=== PATIENT | male | born 1960 | race Caucasian/White ===

== ENCOUNTER 2020-02-03 21:51 | Emergency (ER) | payer OTHER, SELFPAY ==
[2020-02-03 21:56] VITALS: BP 150/73; PULSE 66; RESP 18; TEMP 36.8; O2SAT 99
--- NOTE | 2020-02-03 22:15 | ED.LOWEXIN ---
HPI - Extremity Injury (Lower) General Chief Complaint: Extremity Injury, Lower Stated Complaint: nail in foot Time Seen by Provider: 02/03/20 22:14 Source: patient and post acute care nurse Mode of arrival: ambulatory Limitations: no limitations History of Present Illness HPI Narrative: This is a 60-year-old male who states that 3 hours ago he inadvertently stepped onto a nail and states that he is having some pain at the site but was able to remove it. It is been more than 10 years since his last tetanus vaccine and patient denies being diabetic. Related Data Allergies Allergy/AdvReac Type Severity Reaction Status Date / Time No Known Allergies Allergy Verified 02/03/20 21:56 Review of Systems Review of Systems: pertinent positives and negatives as stated in HPI 10 point review of systems otherwise negative. PMFSH Past Medical History Source: nursing notes reviewed Medical History Anxiety Depression High cholesterol Hypertension Social History Social History Smoking Status: Current every day smoker Use of substances other than those prescribed or required for medical reasons: Yes Substance Use Type: Marijuana Advance Directives: No Advance Directives Information Provided: No Physical Exam Vital Signs: Vital Signs: Vital Signs Temp Pulse Resp BP Pulse Ox 02/03/20 21:56 98.3 F 66 18 150/73 H 99 Body Mass Index 0.3 VITAL SIGNS: Reviewed. GENERAL: Well developed, well nourished, in no acute distress. HEAD: Normocephalic/atraumatic, EYES: PERRLA, EOMI intact without pain, no nystagmus/pallor/icterus noted EARS: Ext canals without abnormality, TMs non-bulging and non-erythematous NOSE: Nares patent bilateral OROPHARYNX: no oral lesions noted, posterior pharynx clear and non-erythematous without noted tonsillar enlargement/erythema/exudates NECK: Supple, no adenopathy LUNGS: Normal breath sounds. No adventitious sounds or accessory muscle use. SpO2<99> CARDIOVASCULAR: Regular rate and rhythm without noted murmurs, no JVD or lower extremity edema. ABDOMEN: Soft, non-tender, non-distended with bowel sounds. No rigidity. No guarding. No palpable masses or hernias noted MUSCULOSKELETAL: No tenderness, deformities, or effusions noted on gross inspection. EXTREMITIES: No cyanosis, clubbing or edema; RIGHT FOOT: Small superficial puncture site noted at the right plantar MTP without obvious foreign body. SKIN: Inspection of the skin reveals no rashes, ulcerations, jaundice, pallor, or petechiae. NEUROLOGIC: Alert and oriented x 4. Strength and sensation to light touch were grossly intact x 4. Course Course Course Narrative: This is a 60-year-old male with history and clinical presentation consistent with puncture injury to the right plantar MTP and will receive tetanus vaccine After verification by x-ray that there is no residual foreign body. Review of x-ray findings is negative for evidence of any foreign body. 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 Discharge Plan Discharge Clinical Impression: Puncture wound of foot Qualifiers: Encounter type: initial encounter Laterality: right Qualified Code(s): S91.331A - Puncture wound without foreign body, right foot, initial encounter Patient Disposition: Home, Self-Care Instructions: Puncture Wound in the Foot (ED) Additional Instructions: 1. Tylenol 1000 mg, por v?a oral, cada 6 horas seg?n sea necesario para controlar el dolor. No exceda los 4000 mg en 24 horas. 2. Ibuprofeno 400 mg, por v?a oral con leche o alimentos, cada 6 horas seg?n sea necesario para controlar el dolor. 3. Puede limpiar el ?july con agua y jab?n. 4. Recibi? emerson vacuna contra el t?tanos hoy. El paciente y / o la justin reconocen que comprenden los resultados (seg?n corresponda), el diagn?stico, el plan de tratamiento, la necesidad de seguimiento y los s?ntomas que deber?an impulsar el regreso a la ivonne de emergencias. Referrals: Name,MD Virgil [Primary Care Provider] - 2 days ( re-evaluation of superficial puncture injury to the right plantar MTP.) Print Language: Slovenian
--- NOTE | 2020-02-03 22:30 | XR_ITS ---
EXAMINATION: XR FOOT, RIGHT CLINICAL INFORMATION: Question foreign body foot COMPARISON: None TECHNIQUE: AP, lateral, and oblique views of the right foot. FINDINGS: There is mild pes cavum. No fractures or dislocations are seen. No retained foreign bodies are present. No significant arthritis is seen. XR/XR foot RT min 3V IMPRESSION: No foreign body is identified
== END 2020-02-03 22:58 | disposition home or self-care (01) ==
PROVIDERS: Emergency Provider Student in an Organized Health Care Education/Training Program; PCP Internal Medicine Geriatric Medicine
DX: S91.331A Puncture wound without foreign body, right foot, initial encounter (principal); S90.414A Abrasion, right lesser toe(s), initial encounter; M79.671 Pain in right foot; W45.0XXA Nail entering through skin, initial encounter; Y93.9 Activity, unspecified; Y92.9 Unspecified place or not applicable; Y99.9 Unspecified external cause status; Z23 Encounter for immunization
CPT/HCPCS: 73630; 90471; 90715; 99284

== ENCOUNTER 2020-09-12 14:43 | Emergency (ER) | payer OTHER, SELFPAY ==
[2020-09-12 14:51] VITALS: BP 113/83; PULSE 91; RESP 18; TEMP 36.9; O2SAT 95; BMI 31.0
--- NOTE | 2020-09-12 15:47 | ECG_ITS ---
Test Reason : DETOX Blood Pressure : / mmHG Vent. Rate : 071 BPM Atrial Rate : 071 BPM P-R Int : 118 ms QRS Dur : 088 ms QT Int : 374 ms P-R-T Axes : 024 031 009 degrees QTc Int : 406 ms Sinus rhythm with frequent Premature ventricular complexes Abnormal ECG No previous ECGs available Referred By: Maria Victoria Wiley Electronically Signed By:SAVANNAH SINGLETARY
--- NOTE | 2020-09-12 15:47 | ED.MEDCLEAR ---
HPI - Medical Clearance General Chief complaint: Medical Clearance <ALFREDO Varma - Last Filed: 09/12/20 16:55> Stated complaint: detox <ALFREDO Varma - Last Filed: 09/12/20 16:55> Time Seen by Provider: 09/12/20 15:46 <ALFREDO Varma - Last Filed: 09/12/20 16:55> Source: patient <ALFREDO Varma - Last Filed: 09/12/20 16:55> Mode of arrival: ambulatory <ALFREDO Varma - Last Filed: 09/12/20 16:55> Limitations: no limitations <ALFREDO Varma - Last Filed: 09/12/20 16:55> History of Present Illness HPI Narrative: 60 y/o male with history of HTN, HLD, asthma, depression, anxiety and heroin addiction who presents to the ER for detox. He has been using intranasal heroin, about 10-15 bags per day. Last used earlier today. He has been dealing with substance abuse for 10+ years. It is causing a lot of family issues and he is at risk of losing his and children. He wants to get sober. He went to [facility] for detox today but they referred him here for medical clearance prior to starting. <ALFREDO Varma - Last Filed: 09/12/20 16:55> MD complaint: medical clearance requested <ALFREDO Varma - Last Filed: 09/12/20 16:55> Onset (ago): unknown <ALFREDO Varma - Last Filed: 09/12/20 16:55> Reason for Medical Clearance: intoxication (substance abuse) <ALFREDO Varma - Last Filed: 09/12/20 16:55> Place: home <ALFREDO Varma - Last Filed: 09/12/20 16:55> Alleged Intoxication: Yes <ALFREDO Varma - Last Filed: 09/12/20 16:55> Compliant with Home Medications: Yes <ALFREDO Varma - Last Filed: 09/12/20 16:55> Associated Symptoms: denies other symptoms <ALFREDO Varma - Last Filed: 09/12/20 16:55> Treatments Prior to Arrival: none <ALFREDO Vrama - Last Filed: 09/12/20 16:55> Related Information Allergies/Adverse reactions: Allergies Allergy/AdvReac Type Severity Reaction Status Date / Time No Known Allergies Allergy Verified 09/12/20 14:54 <ALFREDO Varma - Last Filed: 09/12/20 16:55> Review of Systems Review of Systems: Constitutional: No Fever, No Chills ENT/Mouth: No sore throat, No Rhinorrhea, No Swallowing Difficulty Cardiovascular: No Chest Pain, No SOB Respiratory: No Cough, No Sputum Gastrointestinal: No Nausea, No Vomiting, No Diarrhea, No abdominal Pain Genitourinary: No Dysuria, No Urinary Frequency, No Hematuria Musculoskeletal: No joint pain, No Myalgias Skin: No Skin Lesions, No rash Neuro: No Weakness, No Numbness, No Dizziness, No Headache Psych: + Anxiety/Panic, + Depression, No SI or HI <ALFREDO Varma Last Filed: 09/12/20 16:55> [facility] Past Medical History Attestation statement: The following information was validated with the patient. <ALFREDO Varma - Last Filed: 09/12/20 16:55> Medical History: Medical History Anxiety Asthma Depression High cholesterol HTN (hypertension) <ALFREDO Varma Last Filed: 09/12/20 16:55> Social History Social History: Social History Advance Directives: No Advance Directives Information Provided: Yes <ALFREDO Varma Last Filed: 09/12/20 16:55> Physical Exam Vital Signs: Vital Signs: Last Vital Signs Temp 98.5 F 09/12/20 17:21 Pulse 89 09/12/20 17:21 Resp 18 09/12/20 20:00 BP 118/66 09/12/20 17:21 Pulse Ox 95 09/12/20 17:21 Body Mass Index 31.0 Appearance: Alert. Oriented X3. No acute distress. Eyes: Pupils equal, round and reactive to light. ENT: Pharynx normal. Neck: Normal inspection. Neck supple. CVS: Normal heart rate and rhythm. Pulses normal. Respiratory: No respiratory distress. Breath sounds normal. Abdomen: Soft and nontender. +BS x4 Skin: Skin warm and dry. Normal skin color. Normal skin turgor. No rashes. Extremities: No lower extremity edema. Neuro: Oriented X 3. No motor deficit. No sensory deficit. Ambulates with steady gait. <ALFREDO Varma - Last Filed: 09/12/20 16:55> Vital Signs: Last Vital Signs Temp 98.5 F 09/12/20 17:21 Pulse 89 09/12/20 17:21 Resp 18 09/12/20 20:00 BP 118/66 09/12/20 17:21 Pulse Ox 95 09/12/20 17:21 Body Mass Index 31.0 <Prabha Ram NP - Last Filed: 09/13/20 01:14> Course Course Course Narrative: 60 y/o male with longstanding heroin addiction presenting for medical clearance so he can go to detox. He has been to [facility] before and wants to go back. Will get CARE Team to see him and do basic labs and EKG for medical clearance. <ALFREDO Varma - Last Filed: 09/12/20 16:55> Patient is a detox in the morning, he is unable to stay in 1 place, found wandering multiple times about the hospital. Multiple redirection attempts have failed. Due to patient's safety and privacy concerns we are discharging patient home and he will follow-up with detox in the morning. <Prabha Ram NP - Last Filed: 09/13/20 01:14> MDM - Medical Clearance Lab Data Result diagrams: : 09/12/20 16:48 09/12/20 16:48 <ALFREDO Varma - Last Filed: 09/12/20 16:55> Labs: Lab Results 09/12/20 09/12/20 09/12/20 Range/Units 16:48 16:48 16:49 WBC 9.6 (4.8-10.8) X10*3/uL RBC 4.67 (4.60-5.80) X10*6/uL Hgb 12.6 L (14.0-18.0) g/dl Hct 39.5 L (42-52) % MCV 84.6 (80-98) fL MCH 27.0 (27.0-33.0) pg MCHC 31.9 (31.0-36.0) g/dl RDW 14.2 (11.0-16.0) % Plt Count 247 (160-400) X10*3/uL MPV 9.5 (9.4-12.4) fL Immature Gran % (Auto) 0.3 (0.0-0.4) % Neut % (Auto) 61.7 (45-73) % Lymph % (Auto) 28.1 (20-40) % [place] % (Auto) 7.6 (2-11) % Eos % (Auto) 2.1 (0-4) % Baso % (Auto) 0.2 (0-2) % Lymph # (Auto) 2.7 (1.2-4.9) X10*3/uL [place] # (Auto) 0.7 (0.1-1.2) X10*3/uL Eos # (Auto) 0.2 (0.0-0.4) X10*3/uL Baso # (Auto) 0.0 (0.0-0.2) X10*3/uL Abs Immat Gran (auto) 0.03 (0.00-0.03) X10*3/uL Absolute Neuts (auto) 5.9 (2.0-8.3) X10*3/uL Absolute Nucleated RBC 0.000 (0.0-0.012) X10*3/uL Nucleated RBC % (auto) 0.0 (0.0-0.2) /100WBC Sodium 138 (135-145) mmol/L Potassium 4.9 (3.3-5.1) mmol/L Chloride 102 (96-108) mmol/L Carbon Dioxide 29 (22-29) mmol/L Anion Gap 12 (12-20) BUN 21 H (9-16) mg/dL Creatinine 0.99 (0.5-1.4) mg/dL Estim Creat Clear Calc 90.3 Estimated GFR > 60 Random Glucose 78 (60-115) mg/dL Calcium 9.4 (8.4-10.2) mg/dL Magnesium 2.0 (1.6-2.6) mg/dL Total Bilirubin 0.4 (0.0-1.0) mg/dL Direct Bilirubin 0.2 (0.0-0.5) mg/dL AST 20 (5-37) U/L ALT 17 (0-40) U/L Alkaline Phosphatase 113 (39-117) U/L Total Protein 7.0 (6.5-8.0) g/dL Albumin 4.3 (3.5-5.0) g/dL Urine Color Urine Appearance Urine pH (5.0-8.0) Ur Specific Orwell (1.005-1.025) Urine Protein (NEG-TRACE) MG/DL Urine Glucose (UA) (NEG) MG/DL Urine Ketones (NEG) MG/DL Urine Blood (NEG) Urine Nitrite (NEG) Ur Leukocyte Esterase (NEG) Urine Opiates Screen (Not Detect) Ur Barbiturates Screen (Not Detect) Ur Phencyclidine Scrn (Not Detect) Ur Amphetamines Screen (Not Detect) U Benzodiazepines Scrn (Not Detect) Urine Cocaine Screen (Not Detect) U Marijuana (THC) Screen (Not Detect) COVID-19 (MENDY) Negative (Negative) COVID-19 Clin Com See Note 09/12/20 09/12/20 Range/Units 16:51 16:51 WBC (4.8-10.8) X10*3/uL RBC (4.60-5.80) X10*6/uL Hgb (14.0-18.0) g/dl Hct (42-52) % MCV (80-98) fL MCH (27.0-33.0) pg MCHC (31.0-36.0) g/dl RDW (11.0-16.0) % Plt Count (160-400) X10*3/uL MPV (9.4-12.4) fL Immature Gran % (Auto) (0.0-0.4) % Neut % (Auto) (45-73) % Lymph % (Auto) (20-40) % [place] % (Auto) (2-11) % Eos % (Auto) (0-4) % Baso % (Auto) (0-2) % Lymph # (Auto) (1.2-4.9) X10*3/uL [place] # (Auto) (0.1-1.2) X10*3/uL Eos # (Auto) (0.0-0.4) X10*3/uL Baso # (Auto) (0.0-0.2) X10*3/uL Abs Immat Gran (auto) (0.00-0.03) X10*3/uL Absolute Neuts (auto) (2.0-8.3) X10*3/uL Absolute Nucleated RBC (0.0-0.012) X10*3/uL Nucleated RBC % (auto) (0.0-0.2) /100WBC Sodium (135-145) mmol/L Potassium (3.3-5.1) mmol/L Chloride (96-108) mmol/L Carbon Dioxide (22-29) mmol/L Anion Gap (12-20) BUN (9-16) mg/dL Creatinine (0.5-1.4) mg/dL Estim Creat Clear Calc Estimated GFR Random Glucose (60-115) mg/dL Calcium (8.4-10.2) mg/dL Magnesium (1.6-2.6) mg/dL Total Bilirubin (0.0-1.0) mg/dL Direct Bilirubin (0.0-0.5) mg/dL AST (5-37) U/L ALT (0-40) U/L Alkaline Phosphatase (39-117) U/L Total Protein (6.5-8.0) g/dL Albumin (3.5-5.0) g/dL Urine Color YELLOW Urine Appearance CLEAR Urine pH 6.0 (5.0-8.0) Ur Specific Orwell <= 1.005 (1.005-1.025) Urine Protein NEG (NEG-TRACE) MG/DL Urine Glucose (UA) NEG (NEG) MG/DL Urine Ketones NEG (NEG) MG/DL Urine Blood NEG (NEG) Urine Nitrite NEG (NEG) Ur Leukocyte Esterase NEG (NEG) Urine Opiates Screen POSITIVE H (Not Detect) Ur Barbiturates Screen Not Detected (Not Detect) Ur Phencyclidine Scrn Not Detected (Not Detect) Ur Amphetamines Screen Not Detected (Not Detect) U Benzodiazepines Scrn Not Detected (Not Detect) Urine Cocaine Screen Not Detected (Not Detect) U Marijuana (THC) Screen POSITIVE H (Not Detect) COVID-19 (MENDY) (Negative) COVID-19 Clin Com <ALFREDO Varma - Last Filed: 09/12/20 16:55> Lab Results 09/12/20 09/12/20 09/12/20 Range/Units 16:48 16:48 16:49 WBC 9.6 (4.8-10.8) X10*3/uL RBC 4.67 (4.60-5.80) X10*6/uL Hgb 12.6 L (14.0-18.0) g/dl Hct 39.5 L (42-52) % MCV 84.6 (80-98) fL MCH 27.0 (27.0-33.0) pg MCHC 31.9 (31.0-36.0) g/dl RDW 14.2 (11.0-16.0) % Plt Count 247 (160-400) X10*3/uL MPV 9.5 (9.4-12.4) fL Immature Gran % (Auto) 0.3 (0.0-0.4) % Neut % (Auto) 61.7 (45-73) % Lymph % (Auto) 28.1 (20-40) % [place] % (Auto) 7.6 (2-11) % Eos % (Auto) 2.1 (0-4) % Baso % (Auto) 0.2 (0-2) % Lymph # (Auto) 2.7 (1.2-4.9) X10*3/uL [place] # (Auto) 0.7 (0.1-1.2) X10*3/uL Eos # (Auto) 0.2 (0.0-0.4) X10*3/uL Baso # (Auto) 0.0 (0.0-0.2) X10*3/uL Abs Immat Gran (auto) 0.03 (0.00-0.03) X10*3/uL Absolute Neuts (auto) 5.9 (2.0-8.3) X10*3/uL Absolute Nucleated RBC 0.000 (0.0-0.012) X10*3/uL Nucleated RBC % (auto) 0.0 (0.0-0.2) /100WBC Sodium 138 (135-145) mmol/L Potassium 4.9 (3.3-5.1) mmol/L Chloride 102 (96-108) mmol/L Carbon Dioxide 29 (22-29) mmol/L Anion Gap 12 (12-20) BUN 21 H (9-16) mg/dL Creatinine 0.99 (0.5-1.4) mg/dL Estim Creat Clear Calc 90.3 Estimated GFR > 60 Random Glucose 78 (60-115) mg/dL Calcium 9.4 (8.4-10.2) mg/dL Magnesium 2.0 (1.6-2.6) mg/dL Total Bilirubin 0.4 (0.0-1.0) mg/dL Direct Bilirubin 0.2 (0.0-0.5) mg/dL AST 20 (5-37) U/L ALT 17 (0-40) U/L Alkaline Phosphatase 113 (39-117) U/L Total Protein 7.0 (6.5-8.0) g/dL Albumin 4.3 (3.5-5.0) g/dL Urine Color Urine Appearance Urine pH (5.0-8.0) Ur Specific Orwell (1.005-1.025) Urine Protein (NEG-TRACE) MG/DL Urine Glucose (UA) (NEG) MG/DL Urine Ketones (NEG) MG/DL Urine Blood (NEG) Urine Nitrite (NEG) Ur Leukocyte Esterase (NEG) Urine Opiates Screen (Not Detect) Ur Barbiturates Screen (Not Detect) Ur Phencyclidine Scrn (Not Detect) Ur Amphetamines Screen (Not Detect) U Benzodiazepines Scrn (Not Detect) Urine Cocaine Screen (Not Detect) U Marijuana (THC) Screen (Not Detect) COVID-19 (MENDY) Negative (Negative) COVID-19 Clin Com See Note 09/12/20 09/12/20 Range/Units 16:51 16:51 WBC (4.8-10.8) X10*3/uL RBC (4.60-5.80) X10*6/uL Hgb (14.0-18.0) g/dl Hct (42-52) % MCV (80-98) fL MCH (27.0-33.0) pg MCHC (31.0-36.0) g/dl RDW (11.0-16.0) % Plt Count (160-400) X10*3/uL MPV (9.4-12.4) fL Immature Gran % (Auto) (0.0-0.4) % Neut % (Auto) (45-73) % Lymph % (Auto) (20-40) % [place] % (Auto) (2-11) % Eos % (Auto) (0-4) % Baso % (Auto) (0-2) % Lymph # (Auto) (1.2-4.9) X10*3/uL [place] # (Auto) (0.1-1.2) X10*3/uL Eos # (Auto) (0.0-0.4) X10*3/uL Baso # (Auto) (0.0-0.2) X10*3/uL Abs Immat Gran (auto) (0.00-0.03) X10*3/uL Absolute Neuts (auto) (2.0-8.3) X10*3/uL Absolute Nucleated RBC (0.0-0.012) X10*3/uL Nucleated RBC % (auto) (0.0-0.2) /100WBC Sodium (135-145) mmol/L Potassium (3.3-5.1) mmol/L Chloride (96-108) mmol/L Carbon Dioxide (22-29) mmol/L Anion Gap (12-20) BUN (9-16) mg/dL Creatinine (0.5-1.4) mg/dL Estim Creat Clear Calc Estimated GFR Random Glucose (60-115) mg/dL Calcium (8.4-10.2) mg/dL Magnesium (1.6-2.6) mg/dL Total Bilirubin (0.0-1.0) mg/dL Direct Bilirubin (0.0-0.5) mg/dL AST (5-37) U/L ALT (0-40) U/L Alkaline Phosphatase (39-117) U/L Total Protein (6.5-8.0) g/dL Albumin (3.5-5.0) g/dL Urine Color YELLOW Urine Appearance CLEAR Urine pH 6.0 (5.0-8.0) Ur Specific Orwell <= 1.005 (1.005-1.025) Urine Protein NEG (NEG-TRACE) MG/DL Urine Glucose (UA) NEG (NEG) MG/DL Urine Ketones NEG (NEG) MG/DL Urine Blood NEG (NEG) Urine Nitrite NEG (NEG) Ur Leukocyte Esterase NEG (NEG) Urine Opiates Screen POSITIVE H (Not Detect) Ur Barbiturates Screen Not Detected (Not Detect) Ur Phencyclidine Scrn Not Detected (Not Detect) Ur Amphetamines Screen Not Detected (Not Detect) U Benzodiazepines Scrn Not Detected (Not Detect) Urine Cocaine Screen Not Detected (Not Detect) U Marijuana (THC) Screen POSITIVE H (Not Detect) COVID-19 (MENDY) (Negative) COVID-19 Clin Com <Prabha Ram NP - Last Filed: 09/13/20 01:14> ECG Data Attestation: I personally reviewed and interpreted this ECG as follows: <ALFREDO Varma - Last Filed: 09/12/20 16:55> ECG interpretation date: 09/12/20 <ALFREDO Varma - Last Filed: 09/12/20 16:55> ECG interpretation time: 16:38 <ALFREDO Varma - Last Filed: 09/12/20 16:55> Interpretation: normal sinus rhythm with frequent PVC's, HR 71 bpm, normal IN interval, normal QTc, no ST segment elevations or depressions. <ALFREDO Varma - Last Filed: 09/12/20 16:55> Discharge Plan Discharge Clinical Impression: Heroin addiction <ALFREDO Varma - Last Filed: 09/12/20 16:55> Patient Disposition: Home, Self-Care <ALFREDO Varma - Last Filed: 09/12/20 16:55> Instructions: Opioid Withdrawal (ED), Opioid Use Disorder (ED) <ALFREDO Varma - Last Filed: 09/12/20 16:55> Additional Instructions: Please follow-up detox in the morning. Thank you for choosing this emergency department for evaluation. Please follow-up with primary care physician as needed. Return to the emergency department for any new, concerning, or worsening symptoms. <ALFREDO Varma - Last Filed: 09/12/20 16:55>
[2020-09-12 16:00] VITALS: BP 118/66; PULSE 89; RESP 18; TEMP 36.9; O2SAT 95
[2020-09-12 16:54] LABS: MANUAL DIFF FLAG NO
[2020-09-12 16:56] LABS: Basophils Percent Auto 0.2 % (0-2); Eosinophils Absolute Auto 0.2 X10*3/uL (0.0-0.4); Eosinophils Percent Auto 2.1 % (0-4); Hematocrit 39.5 % (42-52); Hemoglobin 12.6 g/dl (14.0-18.0); Imm Gran Abs Auto 0.03 X10*3/uL (0.00-0.03); Imm Gran Pct Auto 0.3 % (0.0-0.4); Lymphocytes Absolute Auto 2.7 X10*3/uL (1.2-4.9); Lymphocytes Percent Auto 28.1 % (20-40); Mean Corpuscular HGB Conc 31.9 g/dl (31.0-36.0); Mean Corpuscular Volume 84.6 fL (80-98); Mean Platelet Volume 9.5 fL (9.4-12.4); Monocytes Absolute Auto 0.7 X10*3/uL (0.1-1.2); Monocytes Percent Auto 7.6 % (2-11); Neutrophils Absolute Auto 5.9 X10*3/uL (2.0-8.3); Neutrophils Percent Auto 61.7 % (45-73); Platelet Count 247 X10*3/uL (160-400); Red Blood Count 4.67 X10*6/uL (4.60-5.80); Red Cell Distribution Width 14.2 % (11.0-16.0); White Blood Count 9.6 X10*3/uL (4.8-10.8)
[2020-09-12 17:03] LABS: Glucose Urine UA NEG (NEG); Leukocyte Esterase Urine NEG (NEG); Nitrite Urine NEG (NEG); Specific Gravity - Urine <= 1.005 (1.005-1.025); Urine Blood NEG (NEG); Urine Ketones NEG (NEG); Urine Protein NEG (NEG-TRACE)
[2020-09-12 17:05] LABS: Appearance Urine CLEAR; Color Urine YELLOW
[2020-09-12 17:10] LABS: COVID-19 Test Negative (Negative)
[2020-09-12 17:21] VITALS: BP 118/66; PULSE 89; RESP 18; TEMP 36.9; O2SAT 95
[2020-09-12 17:26] LABS: Amphetamine Screen Urine Not Detected (Not Detect); Barbiturates, Urine Not Detected (Not Detect); Benzodiazepines Screen Urine Not Detected (Not Detect); Cannabinoid Screen Urine POSITIVE (Not Detect); Cocaine Screen Urine Not Detected (Not Detect); Opiate Screen Urine POSITIVE (Not Detect); Phencyclidine Screen Urine Not Detected (Not Detect)
[2020-09-12 17:27] LABS: Alanine Aminotransferase 17 U/L (0-40); Albumin Level 4.3 g/dL (3.5-5.0); Alkaline Phosphatase 113 U/L (39-117); Anion Gap 12 (12-20); Aspartate Amino Transferase 20 U/L (5-37); Bilirubin Direct 0.2 mg/dL (0.0-0.5); Bilirubin Total 0.4 mg/dL (0.0-1.0); Blood Urea Nitrogen 21 mg/dL (9-16); Calcium 9.4 mg/dL (8.4-10.2); Carbon Dioxide 29 mmol/L (22-29); Chloride 102 mmol/L (96-108); Creatinine Clr Calc Pharmacy 90.3; Estimated Glomerular Filt Rate > 60; Glucose Random 78 mg/dL (60-115); Potassium 4.9 mmol/L (3.3-5.1); Sodium 138 mmol/L (135-145)
--- NOTE | 2020-09-12 17:55 | MHC.RECOVSUP ---
Recovery Support note: Patient is a 60 year old Latvian speaking male who presented to [facility] ED seeking detox. Patient reports he presented to [facility] and was referred here. Patient is motivated to get into treatment. Reports he has been using heroin for 10 years and that his will kick him out if he does not get into treatment. Patient has been medically cleared and referred to [facility]. [facility] reports that they have a bed but they don't have intake staff until 2100. Patient information faxed to [phone]. [facility] reports that they may have a discharge tomorrow. Patient information faxed to [phone]. [facility] reports that they may have a bed available. Patient information faxed to [phone]. [facility] reports no beds at this time. [facility], message left. This manual writer introduced patient to Pbx Teacher Blake who will continue the bedsearch.
[2020-09-12 20:00] VITALS: RESP 18
--- NOTE | 2020-09-12 20:47 | MHC.RECOVSUP ---
? Reason for consult Seeking Detox o Current location: ED19 o Identified substance use concern: Heroin - Withdrawal - Seeking [facility] (detox) - Support ? Intervention: o <del>[facility]</del> <del>bed</del> <del>search</del> <del>started/completed/in</del> <del>process</del> <del>o</del> <del>MAT</del> <del>started</del> <del>or</del> <del>to</del> <del>be</del> <del>started</del> <del>o</del> <del>Community</del> <del>resources</del> <del>provided</del> <del>o</del> <del>Harm</del> <del>reduction</del> <del>discussion</del> ? Plan: <del>o</del> <del>Referral</del> <del>to</del> <del>[facility]</del> <del>o</del> <del>Bed</del> <del>search</del> <del>in</del> <del>progress</del> <del>to</del> <del>o</del> <del>Follow</del> <del>up</del> <del>tomorrow</del> <del>o</del> <del>Patient</del> <del>awaiting</del> <del>crisis</del> <del>evaluation</del> <del>o</del> <del>Patient</del> <del>to</del> <del>follow</del> <del>up</del> <del>with</del> <del>[facility]</del> <del>after</del> <del>discharge</del> ? Additional information: Patient came to the ED Seeking Help for a Detox.. Patient has a bed at [facility] and [facility] also stated that in the morning they too would have a bed.. I spoke with Nurse in charge and she stated that Patient could stay to the morning..
--- NOTE | 2020-09-13 00:15 | MHC.CARE ---
CARE/Recovery Team will support pt in being transported to the [facility] in [place] first thing in the morning for hopeful admission.
== END 2020-09-13 01:38 | disposition home or self-care (01) ==
PROVIDERS: Physician Assistant; Emergency Provider Emergency Medicine Emergency Medical Services; PCP Internal Medicine Geriatric Medicine
DX: Z02.2 Encounter for examination for admission to residential institution (principal); F19.10 Other psychoactive substance abuse, uncomplicated; I10 Essential (primary) hypertension; E78.5 Hyperlipidemia, unspecified; F41.9 Anxiety disorder, unspecified; F32.9 Major depressive disorder, single episode, unspecified; Z72.89 Other problems related to lifestyle; Z63.0 Problems in relationship with spouse or partner; Z20.822 Contact with and (suspected) exposure to COVID-19
CPT/HCPCS: 36415; 80048; 80076; 80307; 81003; 83735; 85025; 87635; 93005; 99283; 99284

== ENCOUNTER 2022-01-26 06:41 | Emergency (ER) | payer OTHER, SELFPAY ==
--- NOTE | ~2022-01-26 | XR_ITS ---
EXAMINATION: XR CHEST CLINICAL INFORMATION: Cough. COMPARISON: 04/05/2014 chest radiographs, chest CT dated 09/23/2015. TECHNIQUE: Frontal view of the chest was obtained. FINDINGS: No significant abnormality is noted involving the heart, lungs, mediastinum, bony thorax or soft tissues. XR/XR chest 1V IMPRESSION: No acute cardiopulmonary process.
[2022-01-26 06:52] VITALS: BP 135/77; PULSE 97; RESP 16; TEMP 36.9; O2SAT 92; BMI 32.5
--- NOTE | 2022-01-26 07:04 | ED.ASTHMA ---
HPI - Asthma General Chief Complaint: Asthma Stated Complaint: asthma Time Seen by Provider: 01/26/22 07:03 Source: patient Mode of arrival: ambulatory Limitations: no limitations History of Present Illness HPI Narrative: 61 yo male hx of HTN, HLD, asthma, still actively smokes here with c/o productive cough and wheezing since yesterday. He has tried two breathing treatments at home without relief. Denies fevers. States he is not sure when his asthma was this bad in the past. MD complaint: asthma attack , shortness of breath and wheezing Onset (ago): day(s) (1) Severity: moderate Context: smoke exposure Associated symptoms: productive cough Asthma History: childhood onset Treatments Prior to Arrival: inhaled bronchodilator Related Data Previous Rx's Medication Instructions Recorded azithromycin 250 mg tablet See Rx Instructions PO .COMPLEX #6 01/26/22 tabs prednisone 20 mg tablet 60 mg PO DAILY 5 days #15 tabs 01/26/22 Allergies Allergy/AdvReac Type Severity Reaction Status Date / Time No Known Allergies Allergy Verified 09/13/20 07:36 Review of Systems Review of Systems: Constitutional : No Fever, No Chills ENT/Mouth : No Hoarseness, No sore throat, No Rhinorrhea Eyes: No Redness, No Discharge, No Vision Changes Cardiovascular : No Chest Pain, positive SOB, positive Dyspnea on Exertion, No Edema Respiratory : positive Cough, pos Sputum, positive Wheezing, Gastrointestinal : No Nausea, No Vomiting, No Diarrhea, No abdominal Pain Genitourinary : No Dysuria, No Hematuria Musculoskeletal : No joint pain, No Myalgias Skin : No rash Neuro : No Weakness, No Numbness, No Headache Psych : No anxiety, depression Heme/Lymph: No Bruising, No Bleeding Endocrine : No Polyuria, No Polydipsia All other systems reviewed and are negative PMF Past Medical History Attestation statement: The following information was validated with the patient. Medical History Anxiety Asthma Depression GERD (gastroesophageal reflux disease) HLD (hyperlipidemia) HTN (hypertension) Methadone use Personal history of nicotine dependence Tubular adenoma of colon (~2010) Surgical History History of colonoscopy History of left knee surgery (~04/2013) History of left knee surgery (~09/2013) Social History Social History (Updated 01/26/22 @ 07:16 by Lis Solis DO) Patient Tobacco Use Status: Current everyday Tobacco user Substance Use Type: Marijuana Advance Directives: No Physical Exam Vital Signs: Vital Signs: Last Vital Signs Temp 98.0 F 01/26/22 07:33 Pulse 90 01/26/22 08:49 Resp 16 01/26/22 08:49 BP 122/66 01/26/22 07:33 Pulse Ox 93 01/26/22 07:33 O2 Del Method 01/26/22 07:33 BMI result Body Mass Index 32.5 Appearance: Alert. Oriented X3. No acute distress. Eyes: Pupils equal, round and reactive to light. ENT: Pharynx normal. Neck: Normal inspection. Neck supple. CVS: Normal heart rate and rhythm. Pulses normal. Respiratory: No respiratory distress. Breath sounds diffuse exp and insp wheezes Abdomen: Soft and nontender. Skin: Skin warm and dry. Normal skin color. Normal skin turgor. Extremities: trace pitting bilateral LE. No calf ttp Neuro: Oriented X 3. No motor deficit. No sensory deficit. Course Course Course Narrative: feels better repeat neb ordered no hypoxia at this time , brief episode post neb likely VQ mismatch at rest 95%, walks well no complaints feels fine wants to go home, 92% with ambulation trial asthmatic smoker - lungs are CTAB stable for DC MDM - Asthma MDM Narrative Medical decision making narrative: 61 yo male hx of HTN, HLD, asthma, still actively smokes here with productive cough, wheezing at this time CXR< COVID/FLU/RSV swab ordered, IV steroids, Duoneb ordered. Denies fevers. Dispo per results and clinical improvement. Lab Data Result diagrams: 01/26/22 07:32 01/26/22 07:32 Labs: Lab Results 01/26/22 01/26/22 01/26/22 Range/Units 07:32 07:32 07:32 WBC 8.3 (4.8-10.8) X10*3/uL RBC 4.52 L (4.60-5.80) X10*6/uL Hgb 12.3 L (14.0-18.0) g/dl Hct 38.5 L (42.0-52.0) % MCV 85.2 (80.0-98.0) fL MCH 27.2 (27.0-33.0) pg MCHC 31.9 (31.0-36.0) g/dl RDW 13.9 (11.0-16.0) % Plt Count 231 (160-400) X10*3/uL MPV 9.5 (9.4-12.4) fL Immature Gran % (Auto) 0.4 (0.0-0.4) % Neut % (Auto) 59.9 (45-73) % Lymph % (Auto) 25.9 (20-40) % [place] % (Auto) 9.3 (2-11) % Eos % (Auto) 4.1 H (0-4) % Baso % (Auto) 0.4 (0-2) % Lymph # (Auto) 2.2 (1.2-4.9) X10*3/uL [place] # (Auto) 0.8 (0.1-1.2) X10*3/uL Eos # (Auto) 0.3 (0.0-0.4) X10*3/uL Baso # (Auto) 0.0 (0.0-0.2) X10*3/uL Abs Immat Gran (auto) 0.03 (0.00-0.03) X10*3/uL Absolute Neuts (auto) 5.0 (2.0-8.3) x10*3/uL Absolute Nucleated RBC 0.000 (0.0-0.012) X10*3/uL Nucleated RBC % (auto) 0.0 (0.0-0.2) /100WBC Sodium 141 (135-145) mmol/L Potassium 4.3 (3.3-5.1) mmol/L Chloride 105 (96-108) mmol/L Carbon Dioxide 28 (22-29) mmol/L Anion Gap 12 (12-20) BUN 18 H (9-16) mg/dL Creatinine 0.83 (0.5-1.4) mg/dL Estim Creat Clear Calc 108.8 Estimated GFR > 60 Random Glucose 143 H D (60-115) mg/dL Calcium 9.0 (8.4-10.2) mg/dL B-Natriuretic Peptide < 10 (<100) pg/mL Influenza Type A (PCR) (Negative) Influenza Type B (PCR) (Negative) RSV RNA Qual (PCR) (Negative) SARS-CoV-2 RNA (RT-PCR) (Negative) 01/26/22 Range/Units 07:32 WBC (4.8-10.8) X10*3/uL RBC (4.60-5.80) X10*6/uL Hgb (14.0-18.0) g/dl Hct (42.0-52.0) % MCV (80.0-98.0) fL MCH (27.0-33.0) pg MCHC (31.0-36.0) g/dl RDW (11.0-16.0) % Plt Count (160-400) X10*3/uL MPV (9.4-12.4) fL Immature Gran % (Auto) (0.0-0.4) % Neut % (Auto) (45-73) % Lymph % (Auto) (20-40) % [place] % (Auto) (2-11) % Eos % (Auto) (0-4) % Baso % (Auto) (0-2) % Lymph # (Auto) (1.2-4.9) X10*3/uL [place] # (Auto) (0.1-1.2) X10*3/uL Eos # (Auto) (0.0-0.4) X10*3/uL Baso # (Auto) (0.0-0.2) X10*3/uL Abs Immat Gran (auto) (0.00-0.03) X10*3/uL Absolute Neuts (auto) (2.0-8.3) x10*3/uL Absolute Nucleated RBC (0.0-0.012) X10*3/uL Nucleated RBC % (auto) (0.0-0.2) /100WBC Sodium (135-145) mmol/L Potassium (3.3-5.1) mmol/L Chloride (96-108) mmol/L Carbon Dioxide (22-29) mmol/L Anion Gap (12-20) BUN (9-16) mg/dL Creatinine (0.5-1.4) mg/dL Estim Creat Clear Calc Estimated GFR Random Glucose (60-115) mg/dL Calcium (8.4-10.2) mg/dL B-Natriuretic Peptide (<100) pg/mL Influenza Type A (PCR) NEGATIVE (Negative) Influenza Type B (PCR) NEGATIVE (Negative) RSV RNA Qual (PCR) NEGATIVE (Negative) SARS-CoV-2 RNA (RT-PCR) NEGATIVE (Negative) ECG Data Attestation: I personally reviewed and interpreted this ECG as follows: ECG interpretation date: 01/26/22 ECG interpretation time: 07:18 Interpretation: Rate: 92 Rhythm: NSR Watkins: normal Normal P waves. Normal NICOLA. Normal QRS complex. ST T wave : normal no MARVA qTC: normal prior studies: no acute ischemia The study has been interpreted contemporaneously by me. . Discharge Plan Discharge Clinical Impression: Asthma with acute exacerbation Patient Disposition: Home, Self-Care Instructions: Asthma (ED) Additional Instructions: return to ED for any worsening symptoms or concerns take all your medications Prescriptions: New azithromycin 250 mg tablet See Rx Instructions .ROUTE .COMPLEX Qty: 6 0RF Rx Instructions: For 250 mg dose pack: take 500 mg today (day 1), then 250 mg for 4 days (days 2-5) prednisone 20 mg tablet 60 mg PO DAILY 5 Days Qty: 15 0RF Referrals: Name,MD Virgil [Primary Care Provider] - 2 days (if not better) Stand Alone Forms: Work/School Release
--- NOTE | 2022-01-26 07:06 | ECG_ITS ---
Test Reason : sob Blood Pressure : / mmHG Vent. Rate : 092 BPM Atrial Rate : 092 BPM P-R Int : 128 ms QRS Dur : 084 ms QT Int : 362 ms P-R-T Axes : 039 033 029 degrees QTc Int : 447 ms Normal sinus rhythm Normal ECG When compared with ECG of 12-SEP-2020 16:36, Premature ventricular complexes are no longer Present Referred By: Lis Solis Electronically Signed By:CLARK NORIEGA MD
[2022-01-26] MEDS: Albuterol Sulfate 2.5 MG, Albuterol/Iprat 2.5/0.5MG 3 ML 3 ML INHALE (07:20)
[2022-01-26 07:23] VITALS: PULSE 91; RESP 16; O2SAT 94
[2022-01-26 07:33] VITALS: BP 122/66; PULSE 95; RESP 18; TEMP 36.7; O2SAT 93
[2022-01-26 07:37] LABS: MANUAL DIFF FLAG NO
[2022-01-26] MEDS: methylPREDNISolone Sod Succ 125 MG/2 ML VIAL 60 MG IVPUSH (07:38)
[2022-01-26 07:39] LABS: Basophils Percent Auto 0.4 % (0-2); Eosinophils Absolute Auto 0.3 X10*3/uL (0.0-0.4); Eosinophils Percent Auto 4.1 % (0-4); Hematocrit 38.5 % (42.0-52.0); Hemoglobin 12.3 g/dl (14.0-18.0); Imm Gran Abs Auto 0.03 X10*3/uL (0.00-0.03); Imm Gran Pct Auto 0.4 % (0.0-0.4); Lymphocytes Absolute Auto 2.2 X10*3/uL (1.2-4.9); Lymphocytes Percent Auto 25.9 % (20-40); Mean Corpuscular HGB Conc 31.9 g/dl (31.0-36.0); Mean Corpuscular Hemoglobin 27.2 pg (27.0-33.0); Mean Corpuscular Volume 85.2 fL (80.0-98.0); Mean Platelet Volume 9.5 fL (9.4-12.4); Monocytes Absolute Auto 0.8 X10*3/uL (0.1-1.2); Monocytes Percent Auto 9.3 % (2-11); Neutrophils Percent Auto 59.9 % (45-73); Platelet Count 231 X10*3/uL (160-400); Red Blood Count 4.52 X10*6/uL (4.60-5.80); Red Cell Distribution Width 13.9 % (11.0-16.0); White Blood Count 8.3 X10*3/uL (4.8-10.8)
--- NOTE | 2022-01-26 07:49 | PC.NURSE ---
pt complains of SOB. whizzing on rico bilaterally upper and bases. skin warm and color appropriate to ethnicity. mild diaphoresis. Patient received albuterol form respiratory and he said it did help. Sat at 91%, putting on 2L oxygen now sat at 94%. IV in place left AC. Gave him Solumedrol 60mg IV. 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
[2022-01-26 07:56] LABS: Anion Gap 12 (12-20); Blood Urea Nitrogen 18 mg/dL (9-16); Carbon Dioxide 28 mmol/L (22-29); Chloride 105 mmol/L (96-108); Creatinine Clr Calc Pharmacy 108.8; Estimated Glomerular Filt Rate > 60; Glucose Random 143 mg/dL (60-115); Potassium 4.3 mmol/L (3.3-5.1); Sodium 141 mmol/L (135-145)
[2022-01-26 08:03] LABS: B Type Natriuretic Peptide < 10 pg/mL (<100)
[2022-01-26 08:48] LABS: Influenza A PCR NEGATIVE (Negative); Influenza B PCR NEGATIVE (Negative); Resp Syncy Virus RNA Qual PCR NEGATIVE (Negative); SARS COV2 PCR INHOUSE NEGATIVE (Negative)
[2022-01-26 08:49] VITALS: PULSE 90; RESP 16; O2SAT 97
[2022-01-26] MEDS: Albuterol Sulfate (0.083%) 2.5 MG/3 ML VIAL.NEB INHALE (08:49)
[2022-01-26 09:45] VITALS: PULSE 110; O2SAT 92
== END 2022-01-26 10:20 | disposition home or self-care (01) ==
PROVIDERS: Emergency Provider Emergency Medicine; PCP Internal Medicine Geriatric Medicine
DX: J45.901 Unspecified asthma with (acute) exacerbation (principal); R05.9 Cough, unspecified; I10 Essential (primary) hypertension; R06.02 Shortness of breath; F17.210 Nicotine dependence, cigarettes, uncomplicated; Z20.822 Contact with and (suspected) exposure to COVID-19; Z71.6 Tobacco abuse counseling; Z79.899 Other long term (current) drug therapy
CPT/HCPCS: 0241U; 71045; 80048; 83880; 85025; 93005; 94640; 96374; 99284; J2930

== ENCOUNTER 2022-02-11 00:44 | Emergency (ER) | payer OTHER, SELFPAY ==
--- NOTE | ~2022-02-11 | XR_ITS ---
EXAMINATION: XR CHEST CLINICAL INFORMATION: Shortness of breath. COMPARISON: Chest radiograph 01/26/2022. TECHNIQUE: Frontal view of the chest was obtained. FINDINGS: Unchanged appearance of the cardiomediastinal silhouette. Mildly increased interstitial markings compared to 01/26/2022. No dense consolidation. No pleural effusion or pneumothorax. No acute osseous abnormalities. XR/XR chest 1V IMPRESSION: Mildly increased interstitial markings compared to 01/26/2022 which could be seen in the setting of atypical infections, bronchitis, reactive airways disease or atypical infections.
[2022-02-11 00:54] VITALS: BP 116/83; PULSE 104; RESP 28; TEMP 36.9; O2SAT 92; BMI 32.5
--- NOTE | 2022-02-11 01:21 | ED.SOB ---
HPI - SOB/Dyspnea General Chief Complaint: Dyspnea Stated Complaint: asthma Time Seen by Provider: 02/11/22 01:16 Source: patient Mode of arrival: ambulatory Limitations: no limitations History of Present Illness HPI Narrative: Patient comes emergency room complaining of an asthma exacerbation. The last 6 hours, patient has been having shortness of breath. Patient states that he has and nebulization machine at home, however, the mouth piece broke, and is not working properly. Patient denies chest pain, or shortness of breath and tightness. Patient denies fever or chills Related Data Previous Rx's Medication Instructions Recorded azithromycin 250 mg tablet See Rx Instructions PO .COMPLEX #6 01/26/22 tabs prednisone 20 mg tablet 60 mg PO DAILY 5 days #15 tabs 01/26/22 albuterol sulfate 90 mcg/actuation 2 puff inhalation Q4-6H PRN 02/11/22 aerosol inhaler shortness of breath or wheezing #8.5 grams prednisone 50 mg tablet 50 mg PO DAILY #5 tabs 02/11/22 Allergies Allergy/AdvReac Type Severity Reaction Status Date / Time No Known Allergies Allergy Verified 09/13/20 07:36 Review of Systems Review of Systems: Constitutional : No Weight loss, No Fever, No Chills, No Night Sweats, No Fatigue, No Malaise ENT/Mouth : No Hearing loss, No Ear Pain, No Nasal Congestion, No Sinus Pain, No Hoarseness, No sore throat, No Rhinorrhea, No Swallowing Difficulty Eyes: No Eye Pain, No Swelling, No Redness, No Foreign Body, No Discharge, No Vision Changes Cardiovascular : No Chest Pain, complaining of chest tightness with breathing,No Orthopnea, No Edema, No Palpitations Respiratory : Complaining of cough that is usually worse at night, complaining of wheezing and shortness of breath Gastrointestinal : No Nausea, No Vomiting, No Diarrhea, No Constipation, No abdominal Pain, No Hematochezia, No Melena Genitourinary : no irregular bleeding, No Dysuria, No Urinary Frequency, No Hematuria, No Urinary Incontinence, No Urgency, No Flank Pain, No Urinary Flow Changes, No Hesitancy Musculoskeletal : No joint pain, No Myalgias, No Joint Swelling Skin : No Skin Lesions, No rash Neuro : No Weakness, No Numbness, No Paresthesias, No Loss of Consciousness, No Dizziness, No Headache Psych : No Anxiety/Panic, No Depression, No SI/HI/AH/VH, No Social Issues, Heme/Lymph: No Bruising, No Bleeding,No Lymphadenopathy Endocrine : No Polyuria, No Polydipsia, No Temperature Intolerance [facility] Past Medical History Medical History Anxiety Asthma Depression GERD (gastroesophageal reflux disease) HLD (hyperlipidemia) HTN (hypertension) Methadone use Personal history of nicotine dependence Tubular adenoma of colon (~2010) Surgical History History of colonoscopy History of left knee surgery (~04/2013) History of left knee surgery (~09/2013) Social History Social History (Updated 01/26/22 @ 07:16 by Lis Solis DO) Patient Tobacco Use Status: Current everyday Tobacco user Substance Use Type: Marijuana Advance Directives: No Advance Directives Information Provided: Yes Physical Exam Vital Signs: Vital Signs: Last Vital Signs Temp 98.4 F 02/11/22 00:54 Pulse 87 02/11/22 01:37 Resp 18 02/11/22 01:37 BP 116/83 02/11/22 00:54 Pulse Ox 92 02/11/22 00:54 O2 Del Method 02/11/22 00:54 BMI result Body Mass Index 32.5 Const: Other: Appearance: Alert. Oriented X3. No acute distress. Eyes: Pupils equal, round and reactive to light. ENT: Pharynx normal. Neck: Normal inspection. Neck supple. No lymph nodes noted. No crepitus CVS: Normal heart rate and rhythm. Pulses normal. Normal S1 and S2 Respiratory: No respiratory distress. Bilateral wheezing, decreased air movement bilaterally, speaking full sentences Abdomen: Soft and nontender. No rigidity. No distention. Skin: Skin warm and dry. Normal skin color. Normal skin turgor. Extremities: No lower extremity edema. No Lacerations. No Rash Neuro: Oriented X 3. No motor deficit. No sensory deficit. Moving all extremities. No slurred speech. CN 2 through 12 grossly intact Psych: calm, cooperative, normal affect Course Course Course Narrative: Patient receiving now an hour long albuterol treatment, IV magnesium and Solu-Medrol. Chest x-ray and labs pending. Patient's oxygen saturation 89-90% on room air after nebulization treatment, patient still wheezing, patient receiving another After 2nd treatment, patient no longer wheezing, patient breathing within normal limits, good air movement, oxygen saturation 94% while ambulating. Patient feels ready to be discharged Medications Administered Discontinued Medications Generic Name Dose Route Start Last Admin Trade Name Juan PRN Reason Stop Dose Admin Albuterol Sulfate 10 mg 02/11/22 01:20 02/11/22 01:37 Albuterol Sulfate (0.083%) 2.5 Mg/3 Ml Vial.Neb INHALE 02/11/22 01:21 10 mg ONCE ONE Administration Magnesium Sulfate 2 gm in 50 mls @ 25 mls/hr 02/11/22 01:20 02/11/22 02:00 Magnesium Sulfate/H2o IV 02/11/22 03:19 25 mls/hr ONCE ONE Administration Methylprednisolone Sodium Succinate 125 mg 02/11/22 01:20 02/11/22 01:49 Methylprednisolone Sod Succ 125 Mg/2 Ml Vial IVPUSH 02/11/22 01:21 125 mg ONCE ONE Administration MDM - SOB/Dyspnea Lab Data Result diagrams: 02/11/22 01:42 02/11/22 01:42 Labs: Lab Results 02/11/22 02/11/22 02/11/22 Range/Units 01:42 01:42 01:42 WBC 10.9 H (4.8-10.8) X10*3/uL RBC 4.17 L (4.60-5.80) X10*6/uL Hgb 11.5 L (14.0-18.0) g/dl Hct 34.8 L (42.0-52.0) % MCV 83.5 (80.0-98.0) fL MCH 27.6 (27.0-33.0) pg MCHC 33.0 (31.0-36.0) g/dl RDW 13.6 (11.0-16.0) % Plt Count 242 (160-400) X10*3/uL MPV 9.3 L (9.4-12.4) fL Immature Gran % (Auto) 0.4 (0.0-0.4) % Neut % (Auto) 65.9 (45-73) % Lymph % (Auto) 21.7 (20-40) % [place] % (Auto) 8.3 (2-11) % Eos % (Auto) 3.4 (0-4) % Baso % (Auto) 0.3 (0-2) % Lymph # (Auto) 2.4 (1.2-4.9) X10*3/uL [place] # (Auto) 0.9 (0.1-1.2) X10*3/uL Eos # (Auto) 0.4 (0.0-0.4) X10*3/uL Baso # (Auto) 0.0 (0.0-0.2) X10*3/uL Abs Immat Gran (auto) 0.04 H (0.00-0.03) X10*3/uL Absolute Neuts (auto) 7.2 (2.0-8.3) x10*3/uL Absolute Nucleated RBC 0.000 (0.0-0.012) X10*3/uL Nucleated RBC % (auto) 0.0 (0.0-0.2) /100WBC Sodium 139 (135-145) mmol/L Potassium 4.6 (3.3-5.1) mmol/L Chloride 105 (96-108) mmol/L Carbon Dioxide 24 (22-29) mmol/L Anion Gap 15 (12-20) BUN 17 H (9-16) mg/dL Creatinine 0.85 (0.5-1.4) mg/dL Estim Creat Clear Calc 104.9 Estimated GFR > 60 Random Glucose 178 H (60-115) mg/dL Calcium 8.9 (8.4-10.2) mg/dL COVID-19 (MENDY) Negative (Negative) COVID-19 Clin Com See Note Discharge Plan Discharge Clinical Impression: Asthma with exacerbation Patient Disposition: Home, Self-Care Instructions: Asthma (ED) Additional Instructions: Please follow-up with your primary care physician tomorrow. If you have any worsening or new symptoms, please return to the emergency room or call 911 Prescriptions: New prednisone 50 mg tablet 50 mg PO DAILY Qty: 5 0RF albuterol sulfate 90 mcg/actuation HFA aerosol inhaler 2 puff inhalation Q4-6H PRN (Reason: shortness of breath or wheezing) Qty: 8.5 1RF No Action azithromycin 250 mg tablet See Rx Instructions .ROUTE .COMPLEX Qty: 6 0RF Rx Instructions: For 250 mg dose pack: take 500 mg today (day 1), then 250 mg for 4 days (days 2-5) prednisone 20 mg tablet 60 mg PO DAILY 5 Days Qty: 15 0RF
[2022-02-11 01:37] VITALS: PULSE 87; RESP 18; O2SAT 90
[2022-02-11] MEDS: Albuterol Sulfate (0.083%) 2.5 MG/3 ML VIAL.NEB 10 MG INHALE (01:37)
[2022-02-11 01:47] LABS: MANUAL DIFF FLAG NO
[2022-02-11] MEDS: methylPREDNISolone Sod Succ 125 MG/2 ML VIAL IVPUSH (01:49)
[2022-02-11 01:52] LABS: Basophils Percent Auto 0.3 % (0-2); Eosinophils Absolute Auto 0.4 X10*3/uL (0.0-0.4); Eosinophils Percent Auto 3.4 % (0-4); Hematocrit 34.8 % (42.0-52.0); Hemoglobin 11.5 g/dl (14.0-18.0); Imm Gran Abs Auto 0.04 X10*3/uL (0.00-0.03); Imm Gran Pct Auto 0.4 % (0.0-0.4); Lymphocytes Absolute Auto 2.4 X10*3/uL (1.2-4.9); Lymphocytes Percent Auto 21.7 % (20-40); Mean Corpuscular Hemoglobin 27.6 pg (27.0-33.0); Mean Corpuscular Volume 83.5 fL (80.0-98.0); Mean Platelet Volume 9.3 fL (9.4-12.4); Monocytes Absolute Auto 0.9 X10*3/uL (0.1-1.2); Monocytes Percent Auto 8.3 % (2-11); Neutrophils Absolute Auto 7.2 x10*3/uL (2.0-8.3); Neutrophils Percent Auto 65.9 % (45-73); Platelet Count 242 X10*3/uL (160-400); Red Blood Count 4.17 X10*6/uL (4.60-5.80); Red Cell Distribution Width 13.6 % (11.0-16.0); White Blood Count 10.9 X10*3/uL (4.8-10.8)
[2022-02-11] MEDS: Magnesium Sulfate/H2O 2 GM/50 ML PIGGYBACK IV (02:00)
[2022-02-11 02:06] LABS: Anion Gap 15 (12-20); Blood Urea Nitrogen 17 mg/dL (9-16); Calcium 8.9 mg/dL (8.4-10.2); Carbon Dioxide 24 mmol/L (22-29); Chloride 105 mmol/L (96-108); Creatinine Clr Calc Pharmacy 104.9; Estimated Glomerular Filt Rate > 60; Glucose Random 178 mg/dL (60-115); Potassium 4.6 mmol/L (3.3-5.1); Sodium 139 mmol/L (135-145)
[2022-02-11 02:09] LABS: COVID-19 Test Negative (Negative)
[2022-02-11 03:58] VITALS: BP 140/72; PULSE 109; RESP 22; TEMP 36.7; O2SAT 94
[2022-02-11 04:16] VITALS: BP 128/52; PULSE 108; RESP 16; TEMP 36.9; O2SAT 92
--- NOTE | 2022-02-11 04:29 | PC.NURSE ---
Pt ambulates safely. Discharge instructions given and explained to the pt. Pt does not have any questions for the provider. Pt is alert and oriented. IV cath tip was intact upon removal.
== END 2022-02-11 04:30 | disposition home or self-care (01) ==
PROVIDERS: Emergency Provider Emergency Medicine; PCP Internal Medicine Geriatric Medicine
DX: J45.901 Unspecified asthma with (acute) exacerbation (principal); Z20.822 Contact with and (suspected) exposure to COVID-19
CPT/HCPCS: 36415; 71045; 80048; 85025; 87635; 94640; 96365; 96366; 96375; 99284; J2930; J3475

== ENCOUNTER 2022-04-20 19:07 | Emergency (ER) | payer OTHER, SELFPAY ==
--- NOTE | ~2022-04-20 | CT_ITS ---
EXAMINATION: CT HEAD WITHOUT CONTRAST CLINICAL INFORMATION: Status post head injury. COMPARISON: None TECHNIQUE: Contiguous axial imaging was performed from the skull base to vertex without intravenous administration of contrast. This CT examination was performed using dose optimization techniques as appropriate, variously including the following: *Automated exposure control *Adjustment of mA and/or kV according to patient size (this includes techniques or standardized protocols for targeted exams where dose is matched to indication/reason for exam; i.e. extremities or head) *Use of iterative reconstruction technique DLP: 896 mGy-cm FINDINGS: There is no acute intra-axial, extra-axial bleed, masses or midline shift. There is no edema. The lateral ventricles are symmetrical in size and configuration without enlargement. Garcia to white matter differentiation is maintained normal. Bone windows reveal no calvarial abnormality. No scalp soft tissue abnormality seen. Bilateral paranasal sinuses are well-aerated with mild mucoperiosteal thickening of bilateral maxillary and anterior ethmoid sinuses. CT/CT head/brain wo IV con IMPRESSION: No acute intracranial process seen.
[2022-04-20 19:18] VITALS: BP 113/89; PULSE 98; RESP 16; TEMP 36.7; O2SAT 94; BMI 31.0
[2022-04-20] MEDS: Diphth,Pertus(ACell),Tet Adult 0.5 ML SYRINGE IM (19:46)
[2022-04-20] MEDS: Lidocaine HCl 1 % MPF 5 ML VIAL SUBCUT (19:47)
--- NOTE | 2022-04-20 20:38 | ED.HEATRA ---
HPI - Head Injury General Chief complaint: Head Injury Stated complaint: Lac to head Time Seen by Provider: 04/20/22 19:34 Source: patient Mode of arrival: ambulatory Limitations: language barrier (French-speaking) History of Present Illness HPI Narrative: 62-year-old male presenting to the ER with complaints of head injury with a laceration to the frontal/top aspect of his scalp that occurred prior to arrival. He reports that he was working on his car and he got up too quickly and himself with a metal sharp piece. He denies loss of consciousness or prolonged down time or being on any blood thinners or any headaches, dizziness or any symptoms prior to the head injury or any other symptoms complaints or concerns at this time. Reports he is not up-to-date on tetanus. MD Complaint: head injury Onset (ago): minute(s) ([employer]) Mechanism of Injury: other (Metal sharp object while fixing his car) Place: home Loss of Consciousness: no Location of injury: frontal Severity: mild Quality: aching Radiation: none Other Injuries: none Associated symptoms: denies other symptoms Related Data Previous Rx's Medication Instructions Recorded azithromycin 250 mg tablet See Rx Instructions PO .COMPLEX #6 01/26/22 tabs prednisone 20 mg tablet 60 mg PO DAILY 5 days #15 tabs 01/26/22 albuterol sulfate 90 mcg/actuation 2 puff inhalation Q4-6H PRN 02/11/22 aerosol inhaler shortness of breath or wheezing #8.5 grams prednisone 50 mg tablet 50 mg PO DAILY #5 tabs 02/11/22 cephalexin 500 mg capsule 500 mg PO BID 7 days #14 caps 04/20/22 Allergies Allergy/AdvReac Type Severity Reaction Status Date / Time No Known Allergies Allergy Verified 04/20/22 19:22 Review of Systems Review of Systems: Constitutional : No Fever, No Chills, Cardiovascular : No Chest Pain, No SOB Respiratory : No Dyspnea Gastrointestinal : No abdominal pain Musculoskeletal : No Joint Swelling Skin : positive skin laceration, No Foreign bodies, No rash, No surrounding erythema Neuro : No Weakness, No Numbness/tingling, No LOC, No Dizziness, + headache Psych : No SI/HI/thoughts of self injury Yes all other systems are reviewed and are negative PMFSH Past Medical History Attestation statement: The following information was validated with the patient. Source: old records reviewed and nursing notes reviewed Medical History Anxiety Asthma Depression GERD (gastroesophageal reflux disease) HLD (hyperlipidemia) HTN (hypertension) Methadone use Personal history of nicotine dependence Tubular adenoma of colon (~2010) Surgical History History of colonoscopy History of left knee surgery (~04/2013) History of left knee surgery (~09/2013) Social History Social History Patient Tobacco Use Status: Current everyday Tobacco user Substance Use Type: Marijuana Advance Directives: No Advance Directives Information Provided: No Physical Exam Vital Signs: Vital Signs: Last Vital Signs Temp 98.1 F 04/20/22 19:18 Pulse 98 04/20/22 19:18 Resp 16 04/20/22 19:18 BP 113/89 04/20/22 19:18 Pulse Ox 94 04/20/22 19:18 O2 Del Method 04/20/22 19:18 BMI result Body Mass Index 31.0 vital signs have been reviewed as normal and appeared to be correct. Blood pressure normal. Heart rate normal. Respiration rate normal. Temperature normal. Oxygen saturation normal. Appearance: Alert. Oriented X3. No acute distress. Head: To the top aspect of his scalp/frontal aspect patient has a 3 cm intermediate laceration that is linear and aspect. No foreign bodies or obvious scalp deformities or active bleeding noted at this time. The rest of the external exam was within normal limits. No Maldonado signs or raccoon eyes are noted. Eyes: PERRLA. EOMI. Conjunctiva and sclera normal. Eyelids normal. ENT: EAC normal. TM's Normal. No septal hematoma noted. No hemotympanum noted. Pharynx normal. Uvula midline. Moist mucous membranes. No lesions/ulcerations or masses noted on the tongue. Normal voice. No trismus noted. No drooling noted. No muffled voice noted. Neck: Normal inspection. Neck supple. FROM. No adenopathy. Thyroid Normal. No tracheal deviation noted. No crepitus is noted. No meningeal signs. No neck mass noted. No signs of trauma noted. CVS: Normal heart rate and rhythm. Heart sound normal. Pulses normal throughout. No murmurs/rales/gallops. Respiratory: No respiratory distress. Painless inspiration. Breath sounds normal. No wheezes/rales/rhonchi noted. Chest nontender. No crepitus is noted. No accessory muscle usage noted or decreased air movement noted. No signs of trauma. Abdomen: Soft and nontender. Nondistended. No guarding. No rigidity. Bowel sounds normal in all 4 quadrants. No distention noted. No organomegaly noted. No visible injury noted. No rebound tenderness. Negative Rovsing sign. Negative obturator's sign. Negative psoas sign. Negative Gonzalez sign. Back: No CVA tenderness. Full range of motion noted. Nontender. No signs of trauma. Patient neuro intact bilaterally and distally on all 4 extremities. Patient's reflexes intact bilaterally and distally on all 4 extremities. No rashes/lesion/induration/fluctuance or signs of infection noted. Skin: Skin warm and dry. Normal skin color. Normal skin turgor. No rashes/lesions/lacerations noted. Extremities: No lower extremity edema. No calf tenderness is noted. Extremities exhibit normal range of motion and nontender. Neuro: Oriented X 3. No motor deficit. No sensory deficit. Reflexes normal. Normal steady gait. No focal neuro deficits noted. CN's II-XII intact bilaterally? Vascular: + radial pulses/+ 2 distal pedal pulses/+2 dorsalis pedis b/l. Normal cap refill. No cyanosis noted to upper extremity nails and lower extremity toes nails. Course Course Course Narrative: Patient now status post laceration repair with [address]ier [address] scan pending at this time. Patient will be discharged of his CT scan is normal with instructions return in 5 days for staple removal and to return any sooner if any new or worsening symptoms and to follow up with primary care provider. Patient understands agrees with this plan. Sign out to CLAUDIA Moore pending CT scan results. Medications Administered Discontinued Medications Generic Name Dose Route Start Last Admin Trade Name Freq PRN Reason Stop Dose Admin Acetaminophen/Codeine Phosphate 1 tab 04/20/22 20:42 04/20/22 20:54 Acetaminophen With Codeine # 3 Tablet PO 04/20/22 20:43 1 tab ONCE ONE Administration Diphtheria/Tetanus/Acell Pertussis 0.5 ml 04/20/22 19:35 04/20/22 19:46 Diphth,Pertus(Acell),Tet Adult 0.5 Ml Syringe IM 04/20/22 19:36 0.5 ml .ONCE ONE Administration Lidocaine HCl 5 ml 04/20/22 19:35 04/20/22 19:47 Lidocaine Hcl 1 % Mpf 5 Ml Vial SUBCUT 04/20/22 19:36 5 ml ONCE ONE Administration Medical Decision Making Independent Interpretation I performed an independent interpretation of an: CT Scan Radiology Impression Discussion of test interpretation with radiology: I have reviewed the radiologist's reading. Procedures Laceration Laceration 1: Site: scalp Size (cm): 4 Description: linear Depth: simple, single layer Pre-repair: wound explored, irrigated extensively and deep structures intact Skin layer closed with: other (8 javier placed patient tolerated procedure well no complication) Discharge Plan Discharge Clinical Impression: Closed head injury, Laceration of scalp Patient Disposition: Home, Self-Care Instructions: Laceration (ED), Head Injury (ED) Prescriptions: New cephalexin 500 mg capsule 500 mg PO BID 7 Days Qty: 14 0RF No Action azithromycin 250 mg tablet See Rx Instructions .ROUTE .COMPLEX Qty: 6 0RF Rx Instructions: For 250 mg dose pack: take 500 mg today (day 1), then 250 mg for 4 days (days 2-5) prednisone 20 mg tablet 60 mg PO DAILY 5 Days Qty: 15 0RF prednisone 50 mg tablet 50 mg PO DAILY Qty: 5 0RF albuterol sulfate 90 mcg/actuation HFA aerosol inhaler 2 puff inhalation Q4-6H PRN (Reason: shortness of breath or wheezing) Qty: 8.5 1RF Referrals: Mandy Nunez PA [Emergency Midlevel Provider] - 5 days (For staple removal) Name,MD Virgil [Primary Care Provider] - 2 days Print Language: French
== END 2022-04-20 21:32 | disposition home or self-care (01) ==
PROVIDERS: Emergency Provider Emergency Medicine; PCP Internal Medicine Geriatric Medicine
DX: S01.01XA Laceration without foreign body of scalp, initial encounter (principal); R51.9 Headache, unspecified; F17.200 Nicotine dependence, unspecified, uncomplicated; W26.9XXA Contact with unspecified sharp object(s), initial encounter; Y93.9 Activity, unspecified; Y92.9 Unspecified place or not applicable; Y99.9 Unspecified external cause status; Z71.6 Tobacco abuse counseling
CPT/HCPCS: 70450; 90471; 90715; 99283; 99284

== ENCOUNTER 2022-04-28 14:14 | Emergency (ER) | payer OTHER, SELFPAY ==
[2022-04-28 14:46] VITALS: BP 140/84; PULSE 92; RESP 18; TEMP 36.6; O2SAT 94; BMI 31.0
--- NOTE | 2022-04-28 14:46 | ED_ITS ---
HPI - General Adult General Chief complaint: Skin/Abscess/Foreign Body Stated complaint: Stiches removal Time Seen by Provider: 04/28/22 14:50 Source: patient Mode of arrival: ambulatory Limitations: no limitations History of Present Illness HPI narrative: Patient is a 62 year old assigned male at with no reported medical history presenting to the emergency department today for staple removal. Patient states that 8 days ago he had javier placed in his scalp and he is here to have them removed. Patient denies any dizziness, lightheadedness, abdominal pain, nausea, vomiting, fever, chills, blurry vision, double vision, loss of vision, chest pain, difficulty breathing, shortness of breath, back pain, night sweats, pain with urination, increased urinary frequency, increased urinary urgency, blood in his urine or stool, syncope or a near syncopal episode, bowel incontinence, bladder incontinence, bowel retention, bladder retention, or any other complaints at this time. Severity: mild Severity scale (1-10): 3 Pain Consistency: constant Relieving factors: none Exacerbating factors: none Associated symptoms: denies other symptoms Treatments prior to arrival: none Related Data Previous Rx's Medication Instructions Recorded azithromycin 250 mg tablet See Rx Instructions PO .COMPLEX #6 01/26/22 tabs prednisone 20 mg tablet 60 mg PO DAILY 5 days #15 tabs 01/26/22 albuterol sulfate 90 mcg/actuation 2 puff inhalation Q4-6H PRN 02/11/22 aerosol inhaler shortness of breath or wheezing #8.5 grams prednisone 50 mg tablet 50 mg PO DAILY #5 tabs 02/11/22 cephalexin 500 mg capsule 500 mg PO BID 7 days #14 caps 04/20/22 Allergies Allergy/AdvReac Type Severity Reaction Status Date / Time No Known Allergies Allergy Verified 04/20/22 19:22 Review of Systems Constitutional: Constitutional: Reports no additional constitutional complaints, Denies chills, Denies fever(s) and Denies night sweats Eyes: Eyes: Reports no additional eye complaints, Denies blurry vision, Denies change in vision, Denies diplopia, Denies eye discharge, Denies loss of vision and Denies eye pain ENT: Denies dizziness Cardiovascular: Cardiovascular: Reports no additional cardiovascular complaints, Denies chest pain, Denies lightheadedness, Denies Loss of Consciousness and Denies dyspnea Respiratory: Respiratory: Reports no additional respiratory complaints and Denies dyspnea Gastrointestinal: Gastrointestinal: Reports no additional gastrointestinal complaints, Denies abdominal pain, Denies melena, Denies hematochezia, Denies change in bowel habits and Denies change in stool character Genitourinary: Genitourinary: Reports no additional male genitourinary complaints, Denies hematuria, Denies oliguria, Denies difficulty urinating, Hector es dysuria, Denies urinary frequency, Denies urinary hesitancy, Denies urinary incontinence and Denies urinary urgency Musculoskeletal: Musculoskeletal: Reports no additional musculoskeletal complaints, Denies numbness and Denies tingling Comments: 8 javier in scalp Neurologic: Denies dizziness, Denies loss of vision, Denies numbness and Denies tingling Psychiatric: Psychiatric: Reports no additional psychiatric complaints Endocrine: Endocrine: Reports no additional endocrine complaints Hematologic/Lymphatic: Hematologic/Lymphatic: Reports no additional hematologic/lymphatic complaints Allergic/Immunologic: Allergic/Immunologic: Reports no additional allergic/immunologic complaints PMFSH Past Medical History Attestation statement: The following information was validated with the patient. Source: old records reviewed and nursing notes reviewed Medical History Anxiety Asthma Depression GERD (gastroesophageal reflux disease) HLD (hyperlipidemia) HTN (hypertension) Methadone use Personal history of nicotine dependence Tubular adenoma of colon (~2010) Surgical History History of colonoscopy History of left knee surgery (~04/2013) History of left knee surgery (~09/2013) Social History Social History Patient Tobacco Use Status: Current everyday Tobacco user Substance Use Type: Marijuana Advance Directives: No Advance Directives Information Provided: No Physical Exam ED Vital Signs: Vital Signs - 24 hr 04/28/22 14:46 Temperature 98 F Pulse Rate 92 Respiratory Rate 18 Blood Pressure 140/84 H Pulse Oximetry 94 Oxygen Delivery Method Room Air BMI result Body Mass Index 31.0 Const General: cooperative, no acute distress, alert and awake Nutritional Appearance: well nourished Orientation/consciousness: patient oriented x3 Limitations: no limitations HENMT Other: [address] to scalp Head: Yes atraumatic Ears: hearing grossly normal bilaterally and external ears normal General nose exam: Normal external nose present, no nasal discharge noted and no epistaxis Face and sinus: Yes normal facial exam, No abrasion and No laceration Mouth: Normal oral and palatal mucosa present, no drooling and no muffled voice Eyes General: appearance normal, both eyes and all related structures Periorbital: periorbital findings normal Eyelids: Yes eyelids normal Conjunctivae: conjunctivae normal Pupils: Equal, round and reactive pupils present EOM: EOMs intact bilaterally Neck Neck: Yes normal visual inspection, Yes full ROM and Yes no lymphadenopathy Chest Chest palpation & inspection: normal inspection of the chest Resp Effort & Inspection: normal respiratory effort and able to speak in complete sentences Auscultation: clear to auscultation bilaterally Cardio Rate: regular rate Rhythm: regular rhythm GI Inspection: Yes normal to inspection Neuro General: patient oriented x3 and moves all extremities Cranial nerves: Yes Equal, round and reactive pupils present Cognition (Neuro): normal cognition Motor exam (neuro): 5/5 motor strength present throughout Sensory Exam: Normal double simultaneous stimulation for sensation Coordination: [id number] test normal Extrem General: Yes normal to inspection, Yes full ROM and Yes capillary refill normal Psych Appearance: grossly normal Mental Status: mental status grossly normal Affect: normal affect Attitude: cooperative Thought process: Normal thought process present Thought content: Normal thought content present Insight: Good insight present (Psych) Procedures Procedure Narrative Procedure Narrative: 8 javier removed from his scalp without incident. Medical Decision Making Medical Decision Making MDM Narrative: Patient is a 62 year old assigned male at with no reported medical history presenting to the emergency department today for staple removal. Patient's physical exam showed 8 javier in the scalp with a well healed wound.I explained my physical exam findings to the patient. I answered all questions asked by the patient. Patient's javier were removed, without incident. I stressed the importance of the patient taking his medication as prescribed. I stressed the importance of the patient following up with his primary care provider. I stressed the importance of the patient returning to the emergency department immediately if his symptoms were to worsen or if he were to develop any dizziness, shortness of breath, difficulty breathing, chest pain, blurry vision, loss of vision, nausea, vomiting, abdominal pain, fever, chills, back pain, or any other complaints. Patient verbalized agreement and understanding with this treatment plan and discharge. Differential Diagnosis Differential Diagnoses: The differential diagnosis associated with the presentation includes staple removal Discharge Plan Discharge Clinical Impression: Encounter for removal of javier Patient Disposition: Home, Self-Care Additional Instructions: Follow up with your primary care provider. Return to the emergency department immediately if you develop any dizziness, shortness of breath, difficulty breathing, chest pain, blurry vision, loss of vision, nausea, vomiting, abdominal pain, fever, chills, back pain, or any other complaints. Prescriptions: No Action azithromycin 250 mg tablet See Rx Instructions .ROUTE .COMPLEX Qty: 6 0RF Rx Instructions: For 250 mg dose pack: take 500 mg today (day 1), then 250 mg for 4 days (days 2-5) prednisone 20 mg tablet 60 mg PO DAILY 5 Days Qty: 15 0RF prednisone 50 mg tablet 50 mg PO DAILY Qty: 5 0RF albuterol sulfate 90 mcg/actuation HFA aerosol inhaler 2 puff inhalation Q4-6H PRN (Reason: shortness of breath or wheezing) Qty: 8.5 1RF cephalexin 500 mg capsule 500 mg PO BID 7 Days Qty: 14 0RF Referrals: [facility] – [place] Family Medicine [Provider Group] (Call to establish and follow up with a primary care provider. If you already have a primary care provider, please follow up with them. ) [facility] – [place] [facility] [Provider Group] (Call to establish and follow up with a primary care provider. If you already have a primary care provider, please follow up with them. ) [facility] – [place] [facility] [Provider Group] (Call to establish and follow up with a primary care provider. If you already have a primary care provider, please follow up with them. ) Interventions: ED Discharge Assessment Last Done: 04/28/22 14:51 Discharge Date/Time: 04/28/22 15:05 Print Language: Ghanaian
== END 2022-04-28 15:05 | disposition home or self-care (01) ==
LOC: HO.ED 14:58
PROVIDERS: Emergency Provider Student in an Organized Health Care Education/Training Program; PCP Internal Medicine Geriatric Medicine
DX: Z48.02 Encounter for removal of sutures (principal); S01.01XD Laceration without foreign body of scalp, subsequent encounter; X58.XXXD Exposure to other specified factors, subsequent encounter
CPT/HCPCS: 99282; 99283

== ENCOUNTER 2022-05-08 19:35 | Emergency (ER) | payer OTHER, SELFPAY ==
--- NOTE | ~2022-05-08 | CT_ITS ---
EXAMINATION: CT ANGIOGRAM OF THE CHEST WITH AND WITHOUT CONTRAST (CT PULMONARY ANGIOGRAM FOR PE) CLINICAL INFORMATION: Reason for Exam + dimer sob COMPARISON: None TECHNIQUE: Prior to contrast administration, noncontrast localization images were obtained. Subsequently, multidetector volumetric imaging was performed from the thoracic inlet to below the diaphragms following the administration of 65 mL Omnipaque 350 intravenous contrast. No contrast reaction reported Sagittal, coronal, and MIP oblique sagittal reformatted images were obtained on the CT workstation, uploaded to PACS, and reviewed. This CT examination was performed using dose optimization techniques as appropriate, variously including the following: *Automated exposure control *Adjustment of mA and/or kV according to patient size (this includes techniques or standardized protocols for targeted exams where dose is matched to indication/reason for exam; i.e. extremities or head) *Use of iterative reconstruction technique Total exam dose-length product 332 mGy-cm FINDINGS: QUALITY OF STUDY/CONTRAST BOLUS: Suboptimal. PULMONARY ARTERIES: No central pulmonary embolus. Assessment for segmental pulmonary emboli is markedly limited due to suboptimal contrast opacification and respiratory motion artifact. No gross/large segmental embolus. Normal caliber central pulmonary trunk. THORACIC AORTA: No aneurysm or dissection. LUNG: Somewhat limited assessment of pulmonary parenchyma due to respiratory motion artifact. Minimal bibasilar subsegmental atelectasis. No airspace consolidation. Small left lower lobe calcified granuloma. No other pulmonary nodules. Central airways are clear. Mild bronchial wall thickening in the lower lobes and small amount of endobronchial secretions or aspirated debris in right lower lobe bronchi. PLEURA: No pleural effusion or pneumothorax. MEDIASTINUM: Normal heart size. No pericardial effusion. No hilar or mediastinal lymphadenopathy. Few small calcified mediastinal and left hilar lymph nodes noted. No evidence of septal bowing or right heart strain. CORONARY ARTERY CALCIFICATION: Mild LAD coronary calcifications. CHEST WALL/AXILLA: No axillary or internal mammary lymphadenopathy. OSSEOUS STRUCTURES: No acute fracture or suspicious osseous lesion. Mild multilevel degenerative disc disease in the thoracic spine. UPPER ABDOMEN: Visualized upper abdominal viscera are grossly unremarkable. No reflux of contrast into the hepatic veins to suggest elevated right heart pressures. CT/CT angio chest PE protocol IMPRESSION: 1. Limited exam. No evidence of central pulmonary embolus. Assessment for segmental pulmonary emboli is markedly limited due to suboptimal contrast opacification and respiratory motion artifact. No gross/large segmental pulmonary embolus identified. 2. No airspace consolidation or effusions. 3. Mild bronchial wall thickening in the lower lobes and small amount of endobronchial secretions or aspirated debris in right lower lobe bronchi. VTE: indeterminate
--- NOTE | ~2022-05-08 | XR_ITS ---
EXAMINATION: PORTABLE CHEST 1 VIEW CLINICAL INFORMATION: Pneumonia? . COMPARISON: 02/11/2022. TECHNIQUE: Portable frontal view of the chest was obtained. FINDINGS: The lungs are well expanded. Chronic appearing reticular markings but no superimposed focal infiltrate, effusion, edema, or pneumothorax. Cardiac and mediastinal silhouettes are within normal limits for technique. No acute bony abnormality seen. XR/XR chest 1V IMPRESSION: No evidence of acute disease.
[2022-05-08 19:50] VITALS: BP 130/79; PULSE 82; RESP 20; TEMP 36.6; O2SAT 96; BMI 32.5
--- NOTE | 2022-05-08 19:54 | ECG_ITS ---
Test Reason : ASTHMA Blood Pressure : / mmHG Vent. Rate : 077 BPM Atrial Rate : 077 BPM P-R Int : 122 ms QRS Dur : 086 ms QT Int : 394 ms P-R-T Axes : 035 040 028 degrees QTc Int : 445 ms Normal sinus rhythm Normal ECG When compared with ECG of 26-JAN-2022 07:13, No significant change was found Referred By: Albert Beard Electronically Signed By:CLEOPATRA ZABALA MD
--- NOTE | 2022-05-08 19:55 | ED.GENADULT ---
HPI - General Adult General Chief complaint: Dyspnea <ALFREDO Becker - Last Filed: 05/13/22 16:15> Stated complaint: asthma/ sob/ rib pain <ALFREDO Becker - Last Filed: 05/13/22 16:15> Time Seen by Provider: 05/08/22 21:26 <ALFREDO Becker - Last Filed: 05/13/22 16:15> Source: patient <ALFREDO Skelton - Last Filed: 05/09/22 00:53> Mode of arrival: ambulatory <ALFREDO Skelton - Last Filed: 05/09/22 00:53> Limitations: no limitations <ALFREDO Skelton Last Filed: 05/09/22 00:53> History of Present Illness HPI narrative: this is a 62-year-old male history of asthma presenting to the emergency department with complaints of shortness of breath, chest pressure wheezing x2 days progressively worsening. Patient is also reporting that since yesterday he has had a wet cough, unsure of sputum color. Patient tells me that this feels like his typical asthma exacerbation, he reports he has taken inhalers and nebulizing treatments with little to no relief. He tells me however since he has been here he has been feeling slightly better without any treatments. Patient denies shortness of breath, fevers, chills, nausea, vomiting, abdominal pain, headache, vision changes, dizziness or weakness. <ALFREDO Skelton - Last Filed: 05/09/22 00:53> Related Data Home medications: Previous Rx's Medication Instructions Recorded azithromycin 250 mg tablet See Rx Instructions PO .COMPLEX #6 01/26/22 tabs prednisone 20 mg tablet 60 mg PO DAILY 5 days #15 tabs 01/26/22 albuterol sulfate 90 mcg/actuation 2 puff inhalation Q4-6H PRN 02/11/22 aerosol inhaler shortness of breath or wheezing #8.5 grams prednisone 50 mg tablet 50 mg PO DAILY #5 tabs 02/11/22 cephalexin 500 mg capsule 500 mg PO BID 7 days #14 caps 04/20/22 albuterol sulfate 2.5 mg/3 mL 2.5 mg (3 mL) inhalation Q6H #75 mL 02/06/23 (0.083 %) solution for nebulization albuterol sulfate 90 mcg/actuation 2 inh inhalation Q4-6H PRN 05/08/22 breath activated powder inhaler shortness of breath or wheezing #1 ea prednisone 20 mg tablet 40 mg PO DAILY 5 days #10 tabs 05/08/22 azithromycin 250 mg tablet See Rx Instructions PO .COMPLEX #6 05/09/22 tabs <ALFREDO Becker - Last Filed: 05/13/22 16:15> Allergies/adverse reactions: Allergies Allergy/AdvReac Type Severity Reaction Status Date / Time No Known Allergies Allergy Verified 05/08/22 19:53 <ALFREDO Becker - Last Filed: 05/13/22 16:15> Review of Systems Review of Systems: Constitutional : No Weight loss, No Fever, No Chills, No Fatigue, No Malaise ENT/Mouth : No sore throat, No Rhinorrhea Eyes: No Eye Pain, No Swelling, No Redness Cardiovascular : + Chest Pain, No SOB, No Dyspnea on Exertion, No Orthopnea, No Edema, No Palpitations Respiratory : + Cough, + Sputum, + Wheezing Gastrointestinal : No Nausea, No Vomiting, No Diarrhea, No Constipation, No abdominal Pain, No Hematochezia, No Melena Genitourinary : No Dysuria, No Urinary Frequency, No Hematuria, Musculoskeletal : No joint pain, No Myalgias, No Joint Swelling Skin : No Skin Lesions, No rash Neuro : No Weakness, No Numbness, No Dizziness, No Headache Psych : No Anxiety/Panic, No Depression All other systems reviewed and are negative <ALFREDO Skelton - Last Filed: 05/09/22 00:53> Yes all other systems are reviewed and are negative <ALFREDO Skelton - Last Filed: 05/09/22 00:53> [facility] Past Medical History Attestation statement: The following information was validated with the patient. <ALFREDO Skelton - Last Filed: 05/09/22 00:53> Source: old records reviewed and nursing notes reviewed <ALFREDO Skelton Last Filed: 05/09/22 00:53> Medical History: Medical History Anxiety Asthma Depression GERD (gastroesophageal reflux disease) HLD (hyperlipidemia) HTN (hypertension) Methadone use Personal history of nicotine dependence Tubular adenoma of colon (~2010) <ALFREDO Becker - Last Filed: 05/13/22 16:15> Surgical History: Surgical History History of colonoscopy History of left knee surgery (~04/2013) History of left knee surgery (~09/2013) <ALFREDO Becker - Last Filed: 05/13/22 16:15> Social History Social History: Social History Patient Tobacco Use Status: Current everyday Tobacco user Substance Use Type: Marijuana Advance Directives: No Advance Directives Information Provided: No <ALFREDO Becker - Last Filed: 05/13/22 16:15> Physical Exam ED Vital Signs: Vital Signs - 24 hr 05/08/22 19:50 05/08/22 21:20 05/08/22 23:21 Temperature 98 F Pulse Rate 82 74 92 Respiratory Rate 20 18 18 Blood Pressure 130/79 138/81 Pulse Oximetry 96 93 Oxygen Delivery Method Room Air Room Air 05/09/22 00:16 Temperature Pulse Rate 72 Respiratory Rate 18 Blood Pressure 109/71 Pulse Oximetry 92 Oxygen Delivery Method Room Air BMI result Body Mass Index 32.5 <ALFREDO Becker - Last Filed: 05/13/22 16:15> Vital Signs - 24 hr 05/08/22 19:50 05/08/22 21:20 05/08/22 23:21 Temperature 98 F Pulse Rate 82 74 92 Respiratory Rate 20 18 18 Blood Pressure 130/79 138/81 Pulse Oximetry 96 93 Oxygen Delivery Method Room Air Room Air 05/09/22 00:16 Temperature Pulse Rate 72 Respiratory Rate 18 Blood Pressure 109/71 Pulse Oximetry 92 Oxygen Delivery Method Room Air BMI result Body Mass Index 32.5 vss <ALFREDO Skelton - Last Filed: 05/09/22 00:53> Vital Signs - 24 hr 05/08/22 19:50 05/08/22 21:20 05/08/22 23:21 Temperature 98 F Pulse Rate 82 74 92 Respiratory Rate 20 18 18 Blood Pressure 130/79 138/81 Pulse Oximetry 96 93 Oxygen Delivery Method Room Air Room Air 05/09/22 00:16 Temperature Pulse Rate 72 Respiratory Rate 18 Blood Pressure 109/71 Pulse Oximetry 92 Oxygen Delivery Method Room Air BMI result Body Mass Index 32.5 <Soto Decker MD - Last Filed: 05/11/22 09:15> Appearance: Alert.? Oriented X3.? No acute distress.? Head: Normocephalic, atraumatic, no step-offs or deformities Eyes: Pupils equal, round and reactive to light.? ENT: Pharynx normal.? Neck: Normal inspection.? Neck supple.? CVS: Normal heart rate and rhythm.? Pulses normal.? Respiratory: No respiratory distress.? Breath sounds diminished b/l w/ wheezing throughout.?patient is not using accessory muscles for breathing. He is speaking in full sentences and controlling secretions well. Abdomen: Soft and nontender.? Skin: Skin warm and dry.? Normal skin color.? Normal skin turgor.? Extremities: No lower extremity edema.? No calf ttp, negative bartolo b/l. 5/5 strength to bilateral upper and lower extremities Back: No midline tenderness, no C-spine tenderness, full range of motion, no CVA tenderness bilaterally Neuro: Oriented X 3.? No motor deficit.? No sensory deficit. CN 2-12 intact <ALFREDO Skelton - Last Filed: 05/09/22 00:53> Course Course Course Narrative: RME: patient presents to the ED for coughging, chest pain, and boydaches for couple of days. Lungs positive for wheezing. 02 sat normal. negative for any lower extremity swelling, pitting edema, or calf tendenress. labs and EKG, and chest xray ordered. SARS ordered <ALFREDO Becker - Last Filed: 05/13/22 16:15> Reevaluation(s) Reevaluation #1: CBC w/ no acute findings requiring intervention. Chemistry with no acute electrolyte abnormalities requiring intervention. Troponin negative, EKG nonischemic unlikely ACS. BNP within normal limits no signs of CHF on exam unlikely CHF. Patient negative for influenza, RSV and COVID. Chest x-ray with no acute findings. Coags within normal limits however D-dimer slightly elevated CTA was ordered to rule out PE. <ALFREDO Skelton - Last Filed: 05/09/22 00:53> Time: 23:04 <ALFREDO Skelton - Last Filed: 05/09/22 00:53> Reevaluation #2: CTA limited however no evidence of central pulmonary embolism. Assessment for segmental pulmonary emboli a limited due to suboptimal contrast. No gross/large subsegmental pulmonary emboli. No airspace consolidations or effusions. Mild bronchial wall thickening in the lower lobes and small amount of endobronchial secretions I do not suspect that this is an aspiration pneumonia. Will discharge patient home with prednisone, albuterol, albuterol nebulizing treatments, Z-Albert. At this time I have low suspicion for PE. Patient saturating well on room air. Will give another DuoNeb and re-evaluate patient to ensure he continues to saturate well on room air. <ALFREDO Skelton - Last Filed: 05/09/22 00:53> Time: 00:23 <ALFREDO Skelton Last Filed: 05/09/22 00:53> Reevaluation #3: Although nursing documented 92% on room air patient is currently saturating 94% on room air. Will give another DuoNeb I did discuss hospital admission with patient for observation however patient tells me he would like to go home he does not want to be admitted at this time. He tells me he is fine. Patient tells me he is a smoker and he feels like this is likely contributing to his shortness of breath. He tells me he would like to stop smoking. To note, on re-evaluation patient's breath sounds now clear, only faint wheezing noted. <ALFREDO Skelton Last Filed: 05/09/22 00:53> Time: 00:29 <ALFREDO Skelton - Last Filed: 05/09/22 00:53> Additional Reevaluation(s): Patient now saturating 94%, breath sounds improved however due to patient's medical history I did suggest he stay in the hospital for observation, patient refusing. I will have him sign paperwork for against medical advice, he verbalizes understanding of risks versus benefits. At this time patient will be discharged home. Advised him to return with new or worsening symptoms. <ALFREDO Skelton Last Filed: 05/09/22 00:53> Medications Administered Discontinued Medications Generic Name Dose Route Start Last Admin Trade Name Juan PRN Reason Stop Dose Admin Albuterol/Ipratropium 3 ml 05/08/22 22:00 05/08/22 23:12 Albuterol/Iprat 2.5/0.5mg 3 Ml Ampul.Neb INHALE 05/08/22 22:01 3 ml ONCE ONE Administration Albuterol/Ipratropium 3 ml 05/09/22 00:22 05/09/22 00:40 Albuterol/Iprat 2.5/0.5mg 3 Ml Ampul.Neb INHALE 05/09/22 00:23 3 ml ONCE ONE Administration Magnesium Sulfate 2 gm in 50 mls @ 25 mls/hr 05/08/22 22:00 05/08/22 22:57 Magnesium Sulfate/H2o IV 05/08/22 23:59 25 mls/hr ONCE ONE Administration Iohexol 65 ml 05/08/22 23:51 05/08/22 23:52 Iohexol 350 Mg/Ml 100 Ml Infus..Btl IV 05/08/22 23:52 65 ml ONCE ONE Administration Methylprednisolone Sodium Succinate 125 mg 05/08/22 22:00 05/08/22 22:57 Methylprednisolone Sod Succ 125 Mg/2 Ml Vial IVPUSH 05/08/22 22:01 125 mg ONCE ONE Administration <ALFREDO Becker - Last Filed: 05/13/22 16:15> Medications Administered Discontinued Medications Generic Name Dose Route Start Last Admin Trade Name Juan PRN Reason Stop Dose Admin Albuterol/Ipratropium 3 ml 05/08/22 22:00 05/08/22 23:12 Albuterol/Iprat 2.5/0.5mg 3 Ml Ampul.Neb INHALE 05/08/22 22:01 3 ml ONCE ONE Administration Albuterol/Ipratropium 3 ml 05/09/22 00:22 05/09/22 00:40 Albuterol/Iprat 2.5/0.5mg 3 Ml Ampul.Neb INHALE 05/09/22 00:23 3 ml ONCE ONE Administration Magnesium Sulfate 2 gm in 50 mls @ 25 mls/hr 05/08/22 22:00 05/08/22 22:57 Magnesium Sulfate/H2o IV 05/08/22 23:59 25 mls/hr ONCE ONE Administration Iohexol 65 ml 05/08/22 23:51 05/08/22 23:52 Iohexol 350 Mg/Ml 100 Ml Infus..Btl IV 05/08/22 23:52 65 ml ONCE ONE Administration Methylprednisolone Sodium Succinate 125 mg 05/08/22 22:00 05/08/22 22:57 Methylprednisolone Sod Succ 125 Mg/2 Ml Vial IVPUSH 05/08/22 22:01 125 mg ONCE ONE Administration <ALFREDO Skelton - Last Filed: 05/09/22 00:53> Medications Administered Discontinued Medications Generic Name Dose Route Start Last Admin Trade Name Freq PRN Reason Stop Dose Admin Albuterol/Ipratropium 3 ml 05/08/22 22:00 05/08/22 23:12 Albuterol/Iprat 2.5/0.5mg 3 Ml Ampul.Neb INHALE 05/08/22 22:01 3 ml ONCE ONE Administration Albuterol/Ipratropium 3 ml 05/09/22 00:22 05/09/22 00:40 Albuterol/Iprat 2.5/0.5mg 3 Ml Ampul.Neb INHALE 05/09/22 00:23 3 ml ONCE ONE Administration Magnesium Sulfate 2 gm in 50 mls @ 25 mls/hr 05/08/22 22:00 05/08/22 22:57 Magnesium Sulfate/H2o IV 05/08/22 23:59 25 mls/hr ONCE ONE Administration Iohexol 65 ml 05/08/22 23:51 05/08/22 23:52 Iohexol 350 Mg/Ml 100 Ml Infus..Btl IV 05/08/22 23:52 65 ml ONCE ONE Administration Methylprednisolone Sodium Succinate 125 mg 05/08/22 22:00 05/08/22 22:57 Methylprednisolone Sod Succ 125 Mg/2 Ml Vial IVPUSH 05/08/22 22:01 125 mg ONCE ONE Administration <Soto Decker MD - Last Filed: 05/11/22 09:15> Medical Decision Making Medical Decision Making [facility] Narrative: 2200 62-year-old male presents with chest congestion, wet cough, wheezing, tells me it feels like he is having an asthma exacerbation. Not responding to inhaler or nebulizing treatments. Physical exam significant for No respiratory distress.? Breath sounds diminished b/l w/ wheezing throughout.?patient is not using accessory muscles for breathing. He is speaking in full sentences and controlling secretions well. likely asthma exacerbation versus viral illness. Unlikely CHF, PE, ACS however will rule out. No signs of respiratory distress at this time. Plan at this time labs, imaging, viral testing, troponin, D-dimer, nebulizing treatments, magnesium, Solu-Medrol. <ALFREDO Skelton - Last Filed: 05/09/22 00:53> Differential Diagnosis Differential Diagnoses: The differential diagnosis associated with the presentation includes <ALFREDO Skelton - Last Filed: 05/09/22 00:53> likely asthma exacerbation versus viral illness. Unlikely CHF, PE, ACS however will rule out. No signs of respiratory distress at this time. <ALFREDO Skelton - Last Filed: 05/09/22 00:53> Admission/Observation Consideration of admission/observation: Escalation of care including admission/observation considered <ALFRDEO Skelton - Last Filed: 05/09/22 00:53> Lab Data MDM Lab Attestation statement: I reviewed the patient's lab results. <ALFREDO Skelton - Last Filed: 05/09/22 00:53> Result Diagrams: 05/08/22 20:27 05/08/22 20:27 <ALFREDO Becker - Last Filed: 05/13/22 16:15> Labs: Lab Results 05/08/22 05/08/22 05/08/22 Range/Units 20:27 20:27 20:27 WBC 10.7 (4.8-10.8) X10*3/uL RBC 4.94 (4.60-5.80) X10*6/uL Hgb 13.2 L (14.0-18.0) g/dl Hct 40.9 L (42.0-52.0) % MCV 82.8 (80.0-98.0) fL MCH 26.7 L (27.0-33.0) pg MCHC 32.3 (31.0-36.0) g/dl RDW 14.1 (11.0-16.0) % Plt Count 258 (160-400) X10*3/uL MPV 9.4 (9.4-12.4) fL Immature Gran % (Auto) 0.4 (0.0-0.4) % Neut % (Auto) 64.1 (45-73) % Lymph % (Auto) 24.8 (20-40) % Gilchrist % (Auto) 7.0 (2-11) % Eos % (Auto) 3.1 (0-4) % Baso % (Auto) 0.6 (0-2) % Lymph # (Auto) 2.7 (1.2-4.9) X10*3/uL Gilchrist # (Auto) 0.8 (0.1-1.2) X10*3/uL Eos # (Auto) 0.3 (0.0-0.4) X10*3/uL Baso # (Auto) 0.1 (0.0-0.2) X10*3/uL Abs Immat Gran (auto) 0.04 H (0.00-0.03) X10*3/uL Absolute Neuts (auto) 6.9 (2.0-8.3) x10*3/uL Absolute Nucleated RBC 0.000 (0.0-0.012) X10*3/uL Nucleated RBC % (auto) 0.0 (0.0-0.2) /100WBC PT 12.4 (10.0-13.1) SEC INR 1.1 (0.9-1.1) APTT 30.4 (26.0-36.4) SEC D-Dimer High Sensitivty 258 NG/ML Sodium 142 (135-145) mmol/L Potassium 4.4 (3.3-5.1) mmol/L Chloride 106 (96-108) mmol/L Carbon Dioxide 30 H (22-29) mmol/L Anion Gap 10 L (12-20) BUN 19 H (9-16) mg/dL Creatinine 0.82 (0.5-1.4) mg/dL Estim Creat Clear Calc 108.7 Estimated GFR > 60 Random Glucose 115 (60-115) mg/dL Calcium 9.0 (8.4-10.2) mg/dL Magnesium 1.8 (1.6-2.6) mg/dL Total Bilirubin 0.2 (0.0-1.0) mg/dL AST 16 (5-37) U/L ALT 18 (0-40) U/L Alkaline Phosphatase 129 H (39-117) U/L Troponin I High Sens (<3.5-35.0) ng/L B-Natriuretic Peptide (<100) pg/mL Total Protein 6.5 (6.5-8.0) g/dL Albumin 3.9 (3.5-5.0) g/dL Influenza Type A (PCR) (Negative) Influenza Type B (PCR) (Negative) RSV RNA Qual (PCR) (Negative) SARS-CoV-2 RNA (RT-PCR) (Negative) 05/08/22 05/08/22 05/08/22 Range/Units 20:27 20:27 20:28 WBC (4.8-10.8) X10*3/uL RBC (4.60-5.80) X10*6/uL Hgb (14.0-18.0) g/dl Hct (42.0-52.0) % MCV (80.0-98.0) fL MCH (27.0-33.0) pg MCHC (31.0-36.0) g/dl RDW (11.0-16.0) % Plt Count (160-400) X10*3/uL MPV (9.4-12.4) fL Immature Gran % (Auto) (0.0-0.4) % Neut % (Auto) (45-73) % Lymph % (Auto) (20-40) % Gilchrist % (Auto) (2-11) % Eos % (Auto) (0-4) % Baso % (Auto) (0-2) % Lymph # (Auto) (1.2-4.9) X10*3/uL Gilchrist # (Auto) (0.1-1.2) X10*3/uL Eos # (Auto) (0.0-0.4) X10*3/uL Baso # (Auto) (0.0-0.2) X10*3/uL Abs Immat Gran (auto) (0.00-0.03) X10*3/uL Absolute Neuts (auto) (2.0-8.3) x10*3/uL Absolute Nucleated RBC (0.0-0.012) X10*3/uL Nucleated RBC % (auto) (0.0-0.2) /100WBC PT (10.0-13.1) SEC INR (0.9-1.1) APTT (26.0-36.4) SEC D-Dimer High Sensitivty NG/ML Sodium (135-145) mmol/L Potassium (3.3-5.1) mmol/L Chloride (96-108) mmol/L Carbon Dioxide (22-29) mmol/L Anion Gap (12-20) BUN (9-16) mg/dL Creatinine (0.5-1.4) mg/dL Estim Creat Clear Calc Estimated GFR Random Glucose (60-115) mg/dL Calcium (8.4-10.2) mg/dL Magnesium (1.6-2.6) mg/dL Total Bilirubin (0.0-1.0) mg/dL AST (5-37) U/L ALT (0-40) U/L Alkaline Phosphatase (39-117) U/L Troponin I High Sens 3.4 (<3.5-35.0) ng/L B-Natriuretic Peptide 18 (<100) pg/mL Total Protein (6.5-8.0) g/dL Albumin (3.5-5.0) g/dL Influenza Type A (PCR) NEGATIVE (Negative) Influenza Type B (PCR) NEGATIVE (Negative) RSV RNA Qual (PCR) NEGATIVE (Negative) SARS-CoV-2 RNA (RT-PCR) NEGATIVE (Negative) <ALFREDO Becker - Last Filed: 05/13/22 16:15> Lab Results 05/08/22 05/08/22 05/08/22 Range/Units 20:27 20:27 20:27 WBC 10.7 (4.8-10.8) X10*3/uL RBC 4.94 (4.60-5.80) X10*6/uL Hgb 13.2 L (14.0-18.0) g/dl Hct 40.9 L (42.0-52.0) % MCV 82.8 (80.0-98.0) fL MCH 26.7 L (27.0-33.0) pg MCHC 32.3 (31.0-36.0) g/dl RDW 14.1 (11.0-16.0) % Plt Count 258 (160-400) X10*3/uL MPV 9.4 (9.4-12.4) fL Immature Gran % (Auto) 0.4 (0.0-0.4) % Neut % (Auto) 64.1 (45-73) % Lymph % (Auto) 24.8 (20-40) % Gilchrist % (Auto) 7.0 (2-11) % Eos % (Auto) 3.1 (0-4) % Baso % (Auto) 0.6 (0-2) % Lymph # (Auto) 2.7 (1.2-4.9) X10*3/uL Gilchrist # (Auto) 0.8 (0.1-1.2) X10*3/uL Eos # (Auto) 0.3 (0.0-0.4) X10*3/uL Baso # (Auto) 0.1 (0.0-0.2) X10*3/uL Abs Immat Gran (auto) 0.04 H (0.00-0.03) X10*3/uL Absolute Neuts (auto) 6.9 (2.0-8.3) x10*3/uL Absolute Nucleated RBC 0.000 (0.0-0.012) X10*3/uL Nucleated RBC % (auto) 0.0 (0.0-0.2) /100WBC PT 12.4 (10.0-13.1) SEC INR 1.1 (0.9-1.1) APTT 30.4 (26.0-36.4) SEC D-Dimer High Sensitivty 258 NG/ML Sodium 142 (135-145) mmol/L Potassium 4.4 (3.3-5.1) mmol/L Chloride 106 (96-108) mmol/L Carbon Dioxide 30 H (22-29) mmol/L Anion Gap 10 L (12-20) BUN 19 H (9-16) mg/dL Creatinine 0.82 (0.5-1.4) mg/dL Estim Creat Clear Calc 108.7 Estimated GFR > 60 Random Glucose 115 (60-115) mg/dL Calcium 9.0 (8.4-10.2) mg/dL Magnesium 1.8 (1.6-2.6) mg/dL Total Bilirubin 0.2 (0.0-1.0) mg/dL AST 16 (5-37) U/L ALT 18 (0-40) U/L Alkaline Phosphatase 129 H (39-117) U/L Troponin I High Sens (<3.5-35.0) ng/L B-Natriuretic Peptide (<100) pg/mL Total Protein 6.5 (6.5-8.0) g/dL Albumin 3.9 (3.5-5.0) g/dL Influenza Type A (PCR) (Negative) Influenza Type B (PCR) (Negative) RSV RNA Qual (PCR) (Negative) SARS-CoV-2 RNA (RT-PCR) (Negative) 05/08/22 05/08/22 05/08/22 Range/Units 20:27 20:27 20:28 WBC (4.8-10.8) X10*3/uL RBC (4.60-5.80) X10*6/uL Hgb (14.0-18.0) g/dl Hct (42.0-52.0) % MCV (80.0-98.0) fL MCH (27.0-33.0) pg MCHC (31.0-36.0) g/dl RDW (11.0-16.0) % Plt Count (160-400) X10*3/uL MPV (9.4-12.4) fL Immature Gran % (Auto) (0.0-0.4) % Neut % (Auto) (45-73) % Lymph % (Auto) (20-40) % Gilchrist % (Auto) (2-11) % Eos % (Auto) (0-4) % Baso % (Auto) (0-2) % Lymph # (Auto) (1.2-4.9) X10*3/uL Gilchrist # (Auto) (0.1-1.2) X10*3/uL Eos # (Auto) (0.0-0.4) X10*3/uL Baso # (Auto) (0.0-0.2) X10*3/uL Abs Immat Gran (auto) (0.00-0.03) X10*3/uL Absolute Neuts (auto) (2.0-8.3) x10*3/uL Absolute Nucleated RBC (0.0-0.012) X10*3/uL Nucleated RBC % (auto) (0.0-0.2) /100WBC PT (10.0-13.1) SEC INR (0.9-1.1) APTT (26.0-36.4) SEC D-Dimer High Sensitivty NG/ML Sodium (135-145) mmol/L Potassium (3.3-5.1) mmol/L Chloride (96-108) mmol/L Carbon Dioxide (22-29) mmol/L Anion Gap (12-20) BUN (9-16) mg/dL Creatinine (0.5-1.4) mg/dL Estim Creat Clear Calc Estimated GFR Random Glucose (60-115) mg/dL Calcium (8.4-10.2) mg/dL Magnesium (1.6-2.6) mg/dL Total Bilirubin (0.0-1.0) mg/dL AST (5-37) U/L ALT (0-40) U/L Alkaline Phosphatase (39-117) U/L Troponin I High Sens 3.4 (<3.5-35.0) ng/L B-Natriuretic Peptide 18 (<100) pg/mL Total Protein (6.5-8.0) g/dL Albumin (3.5-5.0) g/dL Influenza Type A (PCR) NEGATIVE (Negative) Influenza Type B (PCR) NEGATIVE (Negative) RSV RNA Qual (PCR) NEGATIVE (Negative) SARS-CoV-2 RNA (RT-PCR) NEGATIVE (Negative) <ALFREDO Skelton - Last Filed: 05/09/22 00:53> Lab Results 05/08/22 05/08/22 05/08/22 Range/Units 20:27 20:27 20:27 WBC 10.7 (4.8-10.8) X10*3/uL RBC 4.94 (4.60-5.80) X10*6/uL Hgb 13.2 L (14.0-18.0) g/dl Hct 40.9 L (42.0-52.0) % MCV 82.8 (80.0-98.0) fL MCH 26.7 L (27.0-33.0) pg MCHC 32.3 (31.0-36.0) g/dl RDW 14.1 (11.0-16.0) % Plt Count 258 (160-400) X10*3/uL MPV 9.4 (9.4-12.4) fL Immature Gran % (Auto) 0.4 (0.0-0.4) % Neut % (Auto) 64.1 (45-73) % Lymph % (Auto) 24.8 (20-40) % Gilchrist % (Auto) 7.0 (2-11) % Eos % (Auto) 3.1 (0-4) % Baso % (Auto) 0.6 (0-2) % Lymph # (Auto) 2.7 (1.2-4.9) X10*3/uL Gilchrist # (Auto) 0.8 (0.1-1.2) X10*3/uL Eos # (Auto) 0.3 (0.0-0.4) X10*3/uL Baso # (Auto) 0.1 (0.0-0.2) X10*3/uL Abs Immat Gran (auto) 0.04 H (0.00-0.03) X10*3/uL Absolute Neuts (auto) 6.9 (2.0-8.3) x10*3/uL Absolute Nucleated RBC 0.000 (0.0-0.012) X10*3/uL Nucleated RBC % (auto) 0.0 (0.0-0.2) /100WBC PT 12.4 (10.0-13.1) SEC INR 1.1 (0.9-1.1) APTT 30.4 (26.0-36.4) SEC D-Dimer High Sensitivty 258 NG/ML Sodium 142 (135-145) mmol/L Potassium 4.4 (3.3-5.1) mmol/L Chloride 106 (96-108) mmol/L Carbon Dioxide 30 H (22-29) mmol/L Anion Gap 10 L (12-20) BUN 19 H (9-16) mg/dL Creatinine 0.82 (0.5-1.4) mg/dL Estim Creat Clear Calc 108.7 Estimated GFR > 60 Random Glucose 115 (60-115) mg/dL Calcium 9.0 (8.4-10.2) mg/dL Magnesium 1.8 (1.6-2.6) mg/dL Total Bilirubin 0.2 (0.0-1.0) mg/dL AST 16 (5-37) U/L ALT 18 (0-40) U/L Alkaline Phosphatase 129 H (39-117) U/L Troponin I High Sens (<3.5-35.0) ng/L B-Natriuretic Peptide (<100) pg/mL Total Protein 6.5 (6.5-8.0) g/dL Albumin 3.9 (3.5-5.0) g/dL Influenza Type A (PCR) (Negative) Influenza Type B (PCR) (Negative) RSV RNA Qual (PCR) (Negative) SARS-CoV-2 RNA (RT-PCR) (Negative) 05/08/22 05/08/22 05/08/22 Range/Units 20:27 20:27 20:28 WBC (4.8-10.8) X10*3/uL RBC (4.60-5.80) X10*6/uL Hgb (14.0-18.0) g/dl Hct (42.0-52.0) % MCV (80.0-98.0) fL MCH (27.0-33.0) pg MCHC (31.0-36.0) g/dl RDW (11.0-16.0) % Plt Count (160-400) X10*3/uL MPV (9.4-12.4) fL Immature Gran % (Auto) (0.0-0.4) % Neut % (Auto) (45-73) % Lymph % (Auto) (20-40) % Gilchrist % (Auto) (2-11) % Eos % (Auto) (0-4) % Baso % (Auto) (0-2) % Lymph # (Auto) (1.2-4.9) X10*3/uL Gilchrist # (Auto) (0.1-1.2) X10*3/uL Eos # (Auto) (0.0-0.4) X10*3/uL Baso # (Auto) (0.0-0.2) X10*3/uL Abs Immat Gran (auto) (0.00-0.03) X10*3/uL Absolute Neuts (auto) (2.0-8.3) x10*3/uL Absolute Nucleated RBC (0.0-0.012) X10*3/uL Nucleated RBC % (auto) (0.0-0.2) /100WBC PT (10.0-13.1) SEC INR (0.9-1.1) APTT (26.0-36.4) SEC D-Dimer High Sensitivty NG/ML Sodium (135-145) mmol/L Potassium (3.3-5.1) mmol/L Chloride (96-108) mmol/L Carbon Dioxide (22-29) mmol/L Anion Gap (12-20) BUN (9-16) mg/dL Creatinine (0.5-1.4) mg/dL Estim Creat Clear Calc Estimated GFR Random Glucose (60-115) mg/dL Calcium (8.4-10.2) mg/dL Magnesium (1.6-2.6) mg/dL Total Bilirubin (0.0-1.0) mg/dL AST (5-37) U/L ALT (0-40) U/L Alkaline Phosphatase (39-117) U/L Troponin I High Sens 3.4 (<3.5-35.0) ng/L B-Natriuretic Peptide 18 (<100) pg/mL Total Protein (6.5-8.0) g/dL Albumin (3.5-5.0) g/dL Influenza Type A (PCR) NEGATIVE (Negative) Influenza Type B (PCR) NEGATIVE (Negative) RSV RNA Qual (PCR) NEGATIVE (Negative) SARS-CoV-2 RNA (RT-PCR) NEGATIVE (Negative) <Soto Decker MD - Last Filed: 05/11/22 09:15> Independent Interpretation I performed an independent interpretation of an: EKG ( ventricular rate of 77, NH normal, QRS normal, QT/ QTC normal. EKG with normal sinus rhythm no ST elevations or inversions concerning for ischemia. No significant changes when compared to previous) and Plain X-Ray (No acute findings) <ALFREDO Skelton - Last Filed: 05/09/22 00:53> Radiology Impression Discussion of test interpretation with radiology: I have reviewed the radiologist's reading. <ALFREDO Skelton - Last Filed: 05/09/22 00:53> Attestation Attending Attestation: I reviewed LEAD CASE MANAGER/PA/Resident note, assessment and plan. I agree with the documentation, assessment and plan unless otherwise stated. <Soto Decker MD - Last Filed: 05/11/22 09:15> Critical Care Time Critical Care Time Critical Care Time: No <ALFREDO Skelton - Last Filed: 05/09/22 00:53> Discharge Plan Discharge Clinical Impression: Asthma with exacerbation, Left against medical advice <ALFREDO Becker - Last Filed: 05/13/22 16:15> Patient Disposition: Home, Self-Care <ALFREDO Becker - Last Filed: 05/13/22 16:15> Instructions: Asthma (ED), How to Use a Nebulizer (ED), How to Use a Breath-Activated Inhaler (ED), Wheezing (ED) <ALFREDO Becker - Last Filed: 05/13/22 16:15> Additional Instructions: Take your medications as prescribed. If you were prescribed antibiotics today, it is important that you take your medication to their entirety, do not skip any doses, do not finish them early. Follow-up with your primary care provider this week. Return to the emergency department with new or worsening symptoms. Such as fevers, chills, chest pain, shortness of breath, nausea, vomiting, dizziness, headache, vision changes, lethargy In case of emergency call 911 Offered for you to stay in the hospital however you refused. <ALFREDO Becker - Last Filed: 05/13/22 16:15> Prescriptions: New albuterol sulfate 90 mcg/actuation aerosol powdr breath activated 2 inh inhalation Q4-6H PRN (Reason: shortness of breath or wheezing) Qty: 1 0RF albuterol sulfate 2.5 mg /3 mL (0.083 %) solution for nebulization 2.5 mg inhalation Q6H Qty: 75 0RF prednisone 20 mg tablet 40 mg PO DAILY 5 Days Qty: 10 0RF azithromycin 250 mg tablet See Rx Instructions .ROUTE .COMPLEX Qty: 6 0RF Rx Instructions: For 250 mg dose pack: take 500 mg today (day 1), then 250 mg for 4 days (days 2-5) No Action azithromycin 250 mg tablet See Rx Instructions .ROUTE .COMPLEX Qty: 6 0RF Rx Instructions: For 250 mg dose pack: take 500 mg today (day 1), then 250 mg for 4 days (days 2-5) prednisone 20 mg tablet 60 mg PO DAILY 5 Days Qty: 15 0RF prednisone 50 mg tablet 50 mg PO DAILY Qty: 5 0RF albuterol sulfate 90 mcg/actuation HFA aerosol inhaler 2 puff inhalation Q4-6H PRN (Reason: shortness of breath or wheezing) Qty: 8.5 1RF cephalexin 500 mg capsule 500 mg PO BID 7 Days Qty: 14 0RF <ALFREDO Becker - Last Filed: 05/13/22 16:15> Referrals: Name,MD Virgil [Primary Care Provider] - 2 days <ALFREDO Becker - Last Filed: 05/13/22 16:15> Stand Alone Forms: Against Medical Advice, Work/School Release <ALFREDO Becker - Last Filed: 05/13/22 16:15> Interventions: ED Discharge Assessment Last Done: 05/09/22 01:03 <ALFREDO Becker - Last Filed: 05/13/22 16:15> Discharge Date/Time: 05/09/22 01:04 <ALFREDO Becker - Last Filed: 05/13/22 16:15>
[2022-05-08 20:33] LABS: MANUAL DIFF FLAG NO
[2022-05-08 20:34] LABS: Basophils Absolute Auto 0.1 X10*3/uL (0.0-0.2); Basophils Percent Auto 0.6 % (0-2); Eosinophils Absolute Auto 0.3 X10*3/uL (0.0-0.4); Eosinophils Percent Auto 3.1 % (0-4); Hematocrit 40.9 % (42.0-52.0); Hemoglobin 13.2 g/dl (14.0-18.0); Imm Gran Abs Auto 0.04 X10*3/uL (0.00-0.03); Imm Gran Pct Auto 0.4 % (0.0-0.4); Lymphocytes Absolute Auto 2.7 X10*3/uL (1.2-4.9); Lymphocytes Percent Auto 24.8 % (20-40); Mean Corpuscular HGB Conc 32.3 g/dl (31.0-36.0); Mean Corpuscular Hemoglobin 26.7 pg (27.0-33.0); Mean Corpuscular Volume 82.8 fL (80.0-98.0); Mean Platelet Volume 9.4 fL (9.4-12.4); Monocytes Absolute Auto 0.8 X10*3/uL (0.1-1.2); Neutrophils Absolute Auto 6.9 x10*3/uL (2.0-8.3); Neutrophils Percent Auto 64.1 % (45-73); Platelet Count 258 X10*3/uL (160-400); Red Blood Count 4.94 X10*6/uL (4.60-5.80); Red Cell Distribution Width 14.1 % (11.0-16.0); White Blood Count 10.7 X10*3/uL (4.8-10.8)
[2022-05-08 20:40] LABS: INTERNATIONAL NORM RATIO 1.1 (0.9-1.1); Prothrombin Time 12.4 SEC (10.0-13.1)
[2022-05-08 20:43] LABS: Partial Thromboplastin Time 30.4 SEC (26.0-36.4)
[2022-05-08 20:58] LABS: Alanine Aminotransferase 18 U/L (0-40); Albumin Level 3.9 g/dL (3.5-5.0); Alkaline Phosphatase 129 U/L (39-117); Anion Gap 10 (12-20); Aspartate Amino Transferase 16 U/L (5-37); Bilirubin Total 0.2 mg/dL (0.0-1.0); Blood Urea Nitrogen 19 mg/dL (9-16); Carbon Dioxide 30 mmol/L (22-29); Chloride 106 mmol/L (96-108); Creatinine Clr Calc Pharmacy 108.7; Estimated Glomerular Filt Rate > 60; Glucose Random 115 mg/dL (60-115); Potassium 4.4 mmol/L (3.3-5.1); Sodium 142 mmol/L (135-145); Total Protein 6.5 g/dL (6.5-8.0)
[2022-05-08 21:01] LABS: B Type Natriuretic Peptide 18 pg/mL (<100)
[2022-05-08 21:04] LABS: Troponin-I High Sensitivity 3.4 ng/L (<3.5-35.0)
[2022-05-08 21:12] LABS: Influenza A PCR NEGATIVE (Negative); Influenza B PCR NEGATIVE (Negative); Resp Syncy Virus RNA Qual PCR NEGATIVE (Negative); SARS COV2 PCR INHOUSE NEGATIVE (Negative)
[2022-05-08 21:20] VITALS: BP 138/81; PULSE 74; RESP 18; O2SAT 93
[2022-05-08 21:47] LABS: D Dimer High Sensitivity 258 NG/ML
[2022-05-08 22:17] LABS: Magnesium 1.8 mg/dL (1.6-2.6)
[2022-05-08] MEDS: Magnesium Sulfate/H2O 2 GM/50 ML PIGGYBACK IV (22:57)
[2022-05-08] MEDS: methylPREDNISolone Sod Succ 125 MG/2 ML VIAL IVPUSH (22:57)
[2022-05-08] MEDS: Albuterol/Iprat 2.5/0.5MG 3 ML AMPUL.NEB INHALE (23:12)
[2022-05-08 23:21] VITALS: PULSE 92; RESP 18; O2SAT 96
[2022-05-08] MEDS: iohexoL 350 MG/ML 100 ML INFUS..BTL 65 ML IV (23:52)
[2022-05-09 00:16] VITALS: BP 109/71; PULSE 72; RESP 18; O2SAT 92
[2022-05-09] MEDS: Albuterol/Iprat 2.5/0.5MG 3 ML AMPUL.NEB INHALE (00:40)
[2022-05-09 00:55] VITALS: O2SAT 94
== END 2022-05-09 01:04 | disposition home or self-care (01) ==
PROVIDERS: Physician Assistant; Emergency Provider Emergency Medicine; PCP Internal Medicine Geriatric Medicine
DX: J45.901 Unspecified asthma with (acute) exacerbation (principal); R06.02 Shortness of breath; Z20.822 Contact with and (suspected) exposure to COVID-19; Z20.828 Contact with and (suspected) exposure to other viral communicable diseases
CPT/HCPCS: 0241U; 71045; 71275; 80053; 83735; 83880; 84484; 85025; 85379; 85610; 85730; 93005; 94640; 96374; 96375; 99284; J2930; J3475; Q9967

== ENCOUNTER 2022-10-13 21:36 | Emergency (ER) | payer OTHER, SELFPAY ==
--- NOTE | ~2022-10-13 | XR_ITS ---
EXAMINATION: XR KNEE, RIGHT CLINICAL INFORMATION: Right knee pain COMPARISON: 03/14/2016 TECHNIQUE: Four views of the right knee. FINDINGS: Osseous alignment is anatomic. There is mild medial joint space narrowing and chondrocalcinosis along with minimal tricompartmental spurring. No acute fracture is seen. Small joint effusion is noted. XR/XR knee RT 4V IMPRESSION: Small effusion. No acute osseous findings.
[2022-10-13 22:05] VITALS: BP 117/63; PULSE 103; RESP 19; TEMP 36.2; O2SAT 95; BMI 34.0
[2022-10-14 03:06] VITALS: BP 108/69; PULSE 85; RESP 18; TEMP 36.6; O2SAT 95
--- NOTE | 2022-10-14 03:44 | ED.EXTPRO ---
HPI - Extremity Problem General Chief complaint: Extremity Problem Stated complaint: pain in right knee Time Seen by Provider: 10/14/22 03:43 Source: patient Mode of arrival: ambulatory Limitations: no limitations History of Present Illness HPI Narrative: Pain to right knee denies injury, no fever. 2 days of increasing knee pain. Patient states he alfred valentino MD Complaint: extremity pain Onset (ago): day(s) Pain Consistency: constant Location: right and knee Exacerbating factors: weight bearing and walking Related Data Previous Rx's Medication Instructions Recorded azithromycin 250 mg tablet See Rx Instructions PO .COMPLEX #6 01/26/22 tabs prednisone 20 mg tablet 60 mg PO DAILY 5 days #15 tabs 01/26/22 albuterol sulfate 90 mcg/actuation 2 puff inhalation Q4-6H PRN 02/11/22 aerosol inhaler shortness of breath or wheezing #8.5 grams prednisone 50 mg tablet 50 mg PO DAILY #5 tabs 02/11/22 cephalexin 500 mg capsule 500 mg PO BID 7 days #14 caps 04/20/22 albuterol sulfate 2.5 mg/3 mL 2.5 mg (3 mL) inhalation Q6H #75 mL 05/08/22 (0.083 %) solution for nebulization albuterol sulfate 90 mcg/actuation 2 inh inhalation Q4-6H PRN 05/08/22 breath activated powder inhaler shortness of breath or wheezing #1 ea prednisone 20 mg tablet 40 mg PO DAILY 5 days #10 tabs 05/08/22 azithromycin 250 mg tablet See Rx Instructions PO .COMPLEX #6 05/09/22 tabs naproxen 500 mg tablet (Naprosyn) 500 mg PO BID #20 tabs 10/14/22 Allergies Allergy/AdvReac Type Severity Reaction Status Date / Time No Known Allergies Allergy Verified 10/13/22 22:04 Review of Systems Review of Systems: Yes all other systems are reviewed and are negative Musculoskeletal: Comments: right knee pain and swelling Neurologic: Denies Sensory deficit (Neuro) [facility] Past Medical History Medical History Anxiety Asthma Depression GERD (gastroesophageal reflux disease) HLD (hyperlipidemia) HTN (hypertension) Methadone use Personal history of nicotine dependence Tubular adenoma of colon (~2010) Surgical History History of colonoscopy History of left knee surgery (~04/2013) History of left knee surgery (~09/2013) Social History Social History Alcohol intake: current Alcohol intake frequency: holidays/special occasions only Alcohol type: beer Patient Tobacco Use Status: Current everyday Tobacco user Smoked in Last 30 Days: Yes Use of substances other than those prescribed or required for medical reasons: Yes Substance Use Type: Heroin Advance Directives: No Advance Directives Information Provided: Yes Physical Exam Vital Signs: Vital Signs: Last Vital Signs Temp 97.9 F 10/14/22 03:06 Pulse 85 10/14/22 03:06 Resp 18 10/14/22 03:06 BP 108/69 10/14/22 03:06 Pulse Ox 95 10/14/22 03:06 O2 Del Method Room Air 10/14/22 03:06 BMI result Body Mass Index 34.0 Const: Other: obese male looking older than stated age Nutritional Appearance: obese Orientation/consciousness: oriented to person and patient oriented x3 Limitations: no limitations HEENT: Head: Yes normal to inspection Ears: external ears normal General nose exam: Normal external nose present Mouth: Normal oral and palatal mucosa present and oropharynx normal Throat: Yes posterior oropharynx normal Eyes: General: appearance normal, both eyes and all related structures Neck: Other: supple Neck: Yes normal visual inspection Chest: Chest palpation & inspection: normal inspection of the chest Resp: Auscultation: clear to auscultation bilaterally Cardio: Jugular venous distension: no JVD Rate: regular rate Rhythm: regular rhythm Heart sounds: S1 normal heart sound present and S2 normal heart sound present GI: Inspection: Yes normal to inspection Palpation (GI): Soft to palpation, nontender and No hepatosplenomegaly present Auscultation: normal bowel sounds : General: Yes no CVA tenderness Back/Spine/Pelvis: Back: no CVA tenderness Skin: General skin exam: no rashes or lesions noted Neuro: General: oriented to person and patient oriented x3 Cranial nerves: Yes CN's II-XII intact bilaterally Motor exam (neuro): 5/5 motor strength present throughout Sensory Exam: No Sensory deficit (Neuro) Extrem: Other: right knee with effusion, no redness FROM Psych: Appearance: grossly normal Course Reevaluation(s) Reevaluation #1: patient with pain and effusion likely secondary to arthritis, xray shows severe djd will start nsaids and dc home Time: 03:51 Medications Administered Discontinued Medications Generic Name Dose Route Start Last Admin Trade Name Freq PRN Reason Stop Dose Admin Ketorolac Tromethamine 60 mg 10/14/22 03:54 10/14/22 04:04 Ketorolac Tromethamine 60 Mg/2 Ml Vial IM 10/14/22 03:55 60 mg ONCE ONE Administration Medical Decision Making Differential Diagnosis Differential Diagnoses: The differential diagnosis associated with the presentation includes (septic joint, effusion, degenerative joint secondary to arthritis were all considered) Independent Interpretation I performed an independent interpretation of an: Plain X-Ray (djd and effusion) Tests considered The following testing was considered but not selected: I considered arthrocentesis and fluid count but patient is afebrile, skin is not red so it was not performed Prescription Management I considered prescription management with: Pain Medication (I considered narcotic pain medication) and Antibiotic (antibiotics were considered but no evidence of cellulitis or septic joint) Chronic Conditions Patient?s care impacted by: Other (obesity) Discharge Plan Discharge Clinical Impression: Degenerative joint disease Patient Disposition: Home, Self-Care Instructions: Osteoarthritis (ED) Prescriptions: New naproxen [Naprosyn] 500 mg tablet 500 mg PO BID Qty: 20 0RF No Action azithromycin 250 mg tablet See Rx Instructions .ROUTE .COMPLEX Qty: 6 0RF Rx Instructions: For 250 mg dose pack: take 500 mg today (day 1), then 250 mg for 4 days (days 2-5) prednisone 20 mg tablet 60 mg PO DAILY 5 Days Qty: 15 0RF prednisone 50 mg tablet 50 mg PO DAILY Qty: 5 0RF albuterol sulfate 90 mcg/actuation HFA aerosol inhaler 2 puff inhalation Q4-6H PRN (Reason: shortness of breath or wheezing) Qty: 8.5 1RF cephalexin 500 mg capsule 500 mg PO BID 7 Days Qty: 14 0RF albuterol sulfate 90 mcg/actuation aerosol powdr breath activated 2 inh inhalation Q4-6H PRN (Reason: shortness of breath or wheezing) Qty: 1 0RF albuterol sulfate 2.5 mg /3 mL (0.083 %) solution for nebulization 2.5 mg inhalation Q6H Qty: 75 0RF prednisone 20 mg tablet 40 mg PO DAILY 5 Days Qty: 10 0RF azithromycin 250 mg tablet See Rx Instructions .ROUTE .COMPLEX Qty: 6 0RF Rx Instructions: For 250 mg dose pack: take 500 mg today (day 1), then 250 mg for 4 days (days 2-5) Referrals: [facility] [Provider Group] - 5 days Interventions: ED Discharge Assessment Last Done: 10/14/22 04:07 Discharge Date/Time: 10/14/22 04:07
[2022-10-14] MEDS: Ketorolac Tromethamine 60 MG/2 ML VIAL IM (04:04)
== END 2022-10-14 04:07 | disposition home or self-care (01) ==
PROVIDERS: Emergency Provider Emergency Medicine
DX: M17.11 Unilateral primary osteoarthritis, right knee (principal); M25.461 Effusion, right knee; I10 Essential (primary) hypertension; E78.5 Hyperlipidemia, unspecified; F17.200 Nicotine dependence, unspecified, uncomplicated; Z79.899 Other long term (current) drug therapy; E66.9 Obesity, unspecified; Z68.34 Body mass index [BMI] 34.0-34.9, adult
CPT/HCPCS: 73564; 96372; 99284; J1885

== ENCOUNTER 2022-10-26 14:22 | Outpatient (REF) | payer OTHER, SELFPAY ==
[2022-10-26 16:08] LABS: MANUAL DIFF FLAG NO
[2022-10-26 16:23] LABS: Basophils Percent Auto 0.4 % (0-2); Eosinophils Absolute Auto 0.4 X10*3/uL (0.0-0.4); Eosinophils Percent Auto 3.3 % (0-4); Hematocrit 37.5 % (42.0-52.0); Hemoglobin 11.9 g/dl (14.0-18.0); Imm Gran Abs Auto 0.05 X10*3/uL (0.00-0.03); Imm Gran Pct Auto 0.5 % (0.0-0.4); Lymphocytes Absolute Auto 1.8 X10*3/uL (1.2-4.9); Lymphocytes Percent Auto 16.7 % (20-40); Mean Corpuscular HGB Conc 31.7 g/dl (31.0-36.0); Mean Corpuscular Hemoglobin 27.4 pg (27.0-33.0); Mean Corpuscular Volume 86.2 fL (80.0-98.0); Mean Platelet Volume 10.5 fL (9.4-12.4); Monocytes Absolute Auto 0.9 X10*3/uL (0.1-1.2); Monocytes Percent Auto 8.1 % (2-11); Neutrophils Absolute Auto 7.8 x10*3/uL (2.0-8.3); Platelet Count 303 X10*3/uL (160-400); Red Blood Count 4.35 X10*6/uL (4.60-5.80); Red Cell Distribution Width 14.1 % (11.0-16.0); White Blood Count 10.9 X10*3/uL (4.8-10.8)
[2022-10-26 17:20] LABS: Alanine Aminotransferase 41 U/L (0-40); Albumin Level 3.7 g/dL (3.5-5.0); Alkaline Phosphatase 137 U/L (39-117); Anion Gap 15 (12-20); Aspartate Amino Transferase 28 U/L (5-37); Bilirubin Total 0.2 mg/dL (0.0-1.0); Blood Urea Nitrogen 24 mg/dL (9-16); C Reactive Protein 2.61 mg/dL (< or = 0.50); Calcium 9.6 mg/dL (8.4-10.2); Carbon Dioxide 21 mmol/L (22-29); Chloride 108 mmol/L (96-108); Estimated Glomerular Filt Rate > 60; Glucose Random 105 mg/dL (60-115); Potassium 4.6 mmol/L (3.3-5.1); Sodium 139 mmol/L (135-145); Uric Acid 5.9 mg/dL (3.4-7.0)
[2022-10-26 17:50] LABS: Erythrocyte Sedimentation Rate 28 MM/HR (0-15)
[2022-10-27 14:56] LABS: Iron 34 mcg/dL (45-160); Percent Iron Saturation 13 % (15-50); Total Iron Binding Capacity 270 mcg/dL (228-428); Unsaturated Iron Binding 236 ug/dL
[2022-10-27 14:59] LABS: Ferritin 116 ng/mL (20-250)
== END 2022-10-26 14:23 | disposition home or self-care (01) ==
LOC: HO.HHCL 14:22
PROVIDERS: Visit Provider Student in an Organized Health Care Education/Training Program
DX: Z00.00 Encounter for general adult medical examination without abnormal findings (principal); M25.561 Pain in right knee; M25.562 Pain in left knee
CPT/HCPCS: 36415; 80053; 82728; 83540; 84550; 85025; 85652; 86140

== ENCOUNTER 2022-12-19 10:01 | Outpatient (AMB) | payer OTHER, SELFPAY ==
--- NOTE | 2022-12-19 10:19 | A.OFFVIS_ITS ---
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 Patient reports having a fall last year but the past month pain has been. Pain located at the anterior aspect of knee that radiates down to his hernandez. States his knee will give out every now and than when walking. No previous tx. Finds no relief with tylenol or motrin. Hx of 2 left knee surgeries in 2013 for arthritis . One surgery was performed by Dr. Hodges and the other surgery was performed by Dr. Olivarez. He denies any fevers or chills. He states that both of his knees will give out several times per day. 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: Lyudmila ID#[id number] Allergies No Known Allergies Allergy (Verified 12/19/22 10:37) Medication List - Last Reconciled 12/19/22 by Girma Fernández MD albuterol sulfate 90 mcg/actuation 2 puffs inhalation Q4-6H PRN albuterol sulfate 2.5 mg (3 mL) inhalation Q6H albuterol sulfate 90 mcg/actuation 2 inhalations inhalation Q4-6H PRN amlodipine 2.5 mg PO DAILY ascorbic acid (vitamin C) 250 mg PO DAILY atorvastatin 10 mg PO DAILY azithromycin For 250 mg dose pack: take 500 mg today (day 1), then 250 mg for 4 days (days 2-5) azithromycin For 250 mg dose pack: take 500 mg today (day 1), then 250 mg for 4 days (days 2-5) bupropion HCl 300 mg PO DAILY cephalexin 500 mg PO BID 7 days clonazepam 0.5 mg PO BID PRN escitalopram oxalate 20 mg PO DAILY eszopiclone 3 mg PO BEDTIME PRN ferrous sulfate (FeroSul) mg PO ipratropium bromide 17 mcg/actuation (Atrovent HFA) inhalation mirtazapine 30 mg PO BEDTIME naproxen (Naprosyn) 500 mg PO BID omeprazole 40 mg PO DAILY prednisone 60 mg (3 x 20 mg) PO DAILY 5 days prednisone 50 mg PO DAILY prednisone 40 mg (2 x 20 mg) PO DAILY 5 days tramadol 50 mg PO Q12H PRN [facility] Medical History Anxiety Asthma Depression GERD (gastroesophageal reflux disease) HLD (hyperlipidemia) HTN (hypertension) Methadone use Personal history of nicotine dependence Tubular adenoma of colon (~2010) Surgical History History of colonoscopy History of left knee surgery (~09/2013) History of left knee surgery (~04/2013) Social History Alcohol intake: current Alcohol intake frequency: holidays/special occasions only Alcohol type: beer Patient Tobacco Use Status: Current everyday Tobacco user Substance Use Type: Heroin Physical Exam Vital Signs: BMI result Body Mass Index 34.0 Const Other: Well-nourished well-developed very friendly male awake alert and oriented x3 in no acute distress Extrem Other: Bilateral lower extremity examination shows good capillary refill, no skin lesions noted, normal sensation light touch Bilateral knee examination shows minimal effusions, mild crepitus with range of motion, tenderness along his medial joint lines, positive Caleb's tests, no instability Office Procedures Joint Injection/Drain Joint Injection/Drain Primary Site: left shoulder Prep: site was prepped using aseptic technique Injected: 40 mg of and Kenalog Procedure: The patient tolerated the procedure well Coding 66142 - Large joint Procedure code (CPT) selection complete Joint Injection/Drain Joint Injection/Drain Primary Site: right knee Prep: site was prepped using aseptic technique Injected: 40 mg of, Kenalog and 1% plain lidocaine Procedure: The patient tolerated the procedure well Coding Procedure code (CPT) selection complete Results Reviewed Results Reviewed: 12/19/22 10:43 Lidocaine HCl 2 % MPF [Xylocaine 2 % MPF] 5 ml .ROUTE .STK-MED ONE Triamcinolone Acetonide [Kenalog-40] 40 mg .ROUTE .STK-MED ONE X-rays of the patient's bilateral knee show mild to moderate diffuse joint space narrowing, no acute bony abnormalities Assessment & Plan Assessment & Plan (1) Arthritis of left knee: Code(s): M17.12 - Unilateral primary osteoarthritis, left knee Plan: Mr. Domingo presents with bilateral knee pains due to degenerative joint disease as well as possible tearing of his medial menisci. I had a lengthy discussion with the patient regarding the treatment options. He wishes to hold off on surgery for as long as possible. I agree with this plan. The risks and benefits of bilateral knee cortisone injections were discussed at length with the patient. The patient wished to proceed. She tolerated the injections well. He will continue with his home exercise program. He will follow up with me on an as-needed basis should his symptoms not plateau at an unacceptable level over the next few months. Feel free to call me at any time should questions regarding his orthopedic management arise. Thank you very much for asking me to see this very friendly gentleman. I spent 22 minutes in reviewing the patient's records and imaging studies, seeing the patient and documenting in the medical record. (2) Arthritis of right knee: Code(s): M17.11 - Unilateral primary osteoarthritis, right knee Orders: Orders AMB Joint Injection/Aspiration Today M17.12 - Unilateral primary osteoarthritis, left knee AMB Joint Injection/Aspiration Today M17.11 - Unilateral primary osteoarthritis, right knee Medications: New tramadol 50 mg PO Q12H PRN 30 tabs 0RF pain Coding Level of Care Code New Pt Level 2 (46570) Diagnoses Arthritis of left knee M17.12 Arthritis of right knee M17.11 CPT Codes Coding - 82135 Large joint: 86119 - Large joint ([id number])
[2022-12-19 10:20] VITALS: BMI 34.0
== END 2022-12-19 10:59 | disposition home or self-care (01) ==
PROVIDERS: PCP Internal Medicine Geriatric Medicine; Visit Provider Orthopaedic Surgery
DX: M17.0 Bilateral primary osteoarthritis of knee (principal)
CPT/HCPCS: 20610; 99202

== ENCOUNTER 2022-12-19 10:59 | Outpatient (REF) | payer OTHER, SELFPAY ==
--- NOTE | ~2022-12-19 | XR_ITS ---
EXAMINATION: XR KNEE, RIGHT CLINICAL INFORMATION: Right knee pain COMPARISON: None available. TECHNIQUE: Three views of the right knee. FINDINGS: Small joint effusion. Chondrocalcinosis in the medial and lateral compartments. Moderate medial joint space narrowing. Small tricompartmental osteophytes. XR/XR knee RT 3V IMPRESSION: Degenerative changes right knee.
== END 2022-12-19 11:00 | disposition home or self-care (01) ==
LOC: HO.HOSX 10:59
PROVIDERS: Visit Provider Orthopaedic Surgery
DX: M17.0 Bilateral primary osteoarthritis of knee (principal); Z79.899 Other long term (current) drug therapy
CPT/HCPCS: 20610; 73562; 99202; J3301

== ENCOUNTER 2023-03-20 11:08 | Outpatient (AMB) | payer OTHER, MEDICAID, SELFPAY ==
--- NOTE | 2023-03-20 11:35 | A.OFFVIS_ITS ---
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 Patient reports last injections provided him with relief and is requesting to repeat. The patient states that both of his knees will give out at times. He denies any fevers or chills. Allergies No Known Allergies Allergy (Verified 03/20/23 11:49) [facility] Medical History Anxiety Asthma Depression GERD (gastroesophageal reflux disease) HLD (hyperlipidemia) HTN (hypertension) Methadone use Personal history of nicotine dependence Tubular adenoma of colon (~2010) Surgical History History of colonoscopy History of left knee surgery (~09/2013) History of left knee surgery (~04/2013) Social History Alcohol intake: current Alcohol intake frequency: holidays/special occasions only Alcohol type: beer Patient Tobacco Use Status: Current everyday Tobacco user Substance Use Type: Heroin Physical Exam Vital Signs: BMI result Body Mass Index 34.0 Const Other: Well-nourished well-developed very friendly male awake alert and oriented x3 in no acute distress Extrem Other: Bilateral lower extremity examination shows good capillary refill, no skin lesions noted, normal sensation light touch Bilateral knee examination shows minimal effusions, pain with range of motion, no instability, range of motion from full extension to 120 degrees of flexion Office Procedures Joint Injection/Drain Joint Injection/Drain Primary Site: right knee Prep: site was prepped using aseptic technique Injected: 40 mg of, Kenalog and 1% plain lidocaine Procedure: The patient tolerated the procedure well Coding 12878 - Large joint Procedure code (CPT) selection complete Joint Injection/Drain Joint Injection/Drain Primary Site: left knee Prep: site was prepped using aseptic technique Injected: 40 mg of, Kenalog and 1% plain lidocaine Procedure: The patient tolerated the procedure well Coding 87742 - Large joint Procedure code (CPT) selection complete Results Reviewed Results Reviewed: X-rays of the patient's right knee taken on 10/14/2022 show moderate joint space narrowing, no acute bony abnormalities AP x-ray of the patient's left knee taken on 12/19/2022 show moderate joint space narrowing, no acute bony abnormalities Assessment & Plan Assessment & Plan (1) Left knee pain: Code(s): M25.562 - Pain in left knee (2) Right knee pain: Code(s): M25.561 - Pain in right knee Plan Mr. Domingo presents with bilateral knee pains due to degenerative joint disease. I had a lengthy discussion with the patient regarding the treatment options. He did well from his bilateral knee cortisone injections at his last visit. The risks and benefits of repeat bilateral knee cortisone injections were discussed at length with the patient. The patient wished to proceed. He tolerated the injections well. He will continue with his home exercise program. Because of his mechanical symptoms I did have him fitted with a [employer] a hinged knee braces. I do feel that the braces are a medical necessity to help prevent future falls. The patient will follow up with me on an as-needed basis should his symptoms not plateau at an unacceptable level over the next few months. I spent 22 minutes in reviewing the patient's records and imaging studies, seeing the patient and documenting in the medical record. Orders: Orders AMB Joint Injection/Aspiration Today M25.562 - Pain in left knee AMB Joint Injection/Aspiration Today M25.561 - Pain in right knee Coding Level of Care Code Est Pt Level 2 (02864) Diagnoses Left knee pain M25.562 Right knee pain M25.561 CPT Codes Coding - 88101 Large joint: 35966 - Large joint ([id number]) Coding - 60011 Large joint: 20388 - Large joint ([id number])
[2023-03-20 11:47] VITALS: BMI 34.0
== END 2023-03-20 12:00 | disposition home or self-care (01) ==
PROVIDERS: PCP Internal Medicine Geriatric Medicine; Visit Provider Orthopaedic Surgery
DX: M25.562 Pain in left knee (principal); M25.561 Pain in right knee
CPT/HCPCS: 20610

== ENCOUNTER → 2023-03-20 11:08 | Outpatient (BNVA) | payer OTHER, SELFPAY | PROVIDERS: PCP Internal Medicine Geriatric Medicine; Visit Provider Orthopaedic Surgery | DX: M25.562 Pain in left knee (principal); M25.561 Pain in right knee | CPT/HCPCS: 20610; J3301 ==

== ENCOUNTER 2023-05-24 17:33 | Emergency (ER) | payer OTHER, SELFPAY ==
--- NOTE | ~2023-05-24 | XR_ITS ---
EXAMINATION: XR CHEST CLINICAL INFORMATION: Cough and wheezing COMPARISON: Chest 05/08/2022 TECHNIQUE: 2 views of the chest were obtained. FINDINGS: The lungs are hyperinflated but clear of acute process. Heart size and pulmonary vascularity is normal. No gross bony abnormality seen XR/XR chest 2V IMPRESSION: Hyperinflated lungs without acute process.
--- NOTE | 2023-05-24 17:36 | ECG_ITS ---
Test Reason : CHEST PAIN Blood Pressure : / mmHG Vent. Rate : 095 BPM Atrial Rate : 095 BPM P-R Int : 128 ms QRS Dur : 082 ms QT Int : 354 ms P-R-T Axes : 059 049 008 degrees QTc Int : 444 ms Normal sinus rhythm Normal ECG When compared to the previous EKG of No significant changes seen Referred By: Generic ED Physician Electronically Signed By:CLEOPATRA ZABALA MD
[2023-05-24 19:24] VITALS: BP 143/80; PULSE 97; RESP 18; TEMP 36.8; O2SAT 97; BMI 35.9
--- NOTE | 2023-05-24 19:26 | ED_ITS ---
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 He reports his symptoms started about 10 days ago. He went to [facility] and was discharged with prednisone He reports he finished the course and felt better for about 2 days but 3 days ago his symptoms returned He has bilateral chest wall pain that is worse with coughing He denies any abdominal pain, nausea, vomiting or diarrhea. Denies any fevers or chills No other complaints or concerns at this time Related Data Home Medications Medication Instructions Recorded Confirmed amlodipine 2.5 mg tablet 2.5 mg PO DAILY 12/19/22 12/19/22 ascorbic acid (vitamin C) 250 mg 250 mg PO DAILY 12/19/22 12/19/22 tablet atorvastatin 10 mg tablet 10 mg PO DAILY 12/19/22 12/19/22 bupropion HCl 300 mg 24 hr tablet, 300 mg PO DAILY 12/19/22 12/19/22 extended release clonazepam 0.5 mg tablet 0.5 mg PO BID PRN 12/19/22 12/19/22 escitalopram oxalate 20 mg tablet 20 mg PO DAILY 12/19/22 12/19/22 eszopiclone 3 mg tablet 3 mg PO BEDTIME PRN 12/19/22 12/19/22 ferrous sulfate 325 mg (65 mg mg PO 12/19/22 12/19/22 iron) tablet (FeroSul) ipratropium bromide 17 inhalation 12/19/22 12/19/22 mcg/actuation HFA aerosol inhaler (Atrovent HFA) mirtazapine 30 mg tablet 30 mg PO BEDTIME 12/19/22 12/19/22 omeprazole 40 mg capsule,delayed 40 mg PO DAILY 12/19/22 12/19/22 release Previous Rx's Medication Instructions Recorded azithromycin 250 mg tablet See Rx Instructions PO .COMPLEX #6 01/26/22 tabs prednisone 20 mg tablet 60 mg (3 x 20 mg) PO DAILY 5 days 01/26/22 #15 tabs albuterol sulfate 90 mcg/actuation 2 puff inhalation Q4-6H PRN 02/11/22 aerosol inhaler shortness of breath or wheezing #8.5 grams prednisone 50 mg tablet 50 mg PO DAILY #5 tabs 02/11/22 cephalexin 500 mg capsule 500 mg PO BID 7 days #14 caps 04/20/22 albuterol sulfate 2.5 mg/3 mL 2.5 mg (3 mL) inhalation Q6H #75 mL 05/08/22 (0.083 %) solution for nebulization albuterol sulfate 90 mcg/actuation 2 inh inhalation Q4-6H PRN 05/08/22 breath activated powder inhaler shortness of breath or wheezing #1 ea prednisone 20 mg tablet 40 mg (2 x 20 mg) PO DAILY 5 days 05/08/22 #10 tabs azithromycin 250 mg tablet See Rx Instructions PO .COMPLEX #6 05/09/22 tabs naproxen 500 mg tablet (Naprosyn) 500 mg PO BID #20 tabs 10/14/22 tramadol 50 mg tablet 50 mg PO Q12H PRN pain #30 tabs 03/08/23 azithromycin 250 mg tablet See Rx Instructions PO .COMPLEX #6 05/24/23 tabs Allergies Allergy/AdvReac Type Severity Reaction Status Date / Time No Known Allergies Allergy Verified 05/24/23 19:23 Review of Systems Constitutional: Constitutional: Reports body ache(s), Denies chills and Denies fever(s) Eyes: Eyes: Denies blurry vision ENT: Denies sore throat Cardiovascular: Cardiovascular: Reports chest pain with activity and Reports dyspnea Respiratory: Respiratory: Reports chest congestion, Reports cough, Reports pain with cough, Reports dyspnea and Reports wheezing Gastrointestinal: Gastrointestinal: Denies abdominal pain, Reports nausea and Denies vomiting Musculoskeletal: Musculoskeletal: Denies back pain Integumentary/Breasts: Skin/Breast: Denies rash Allergic/Immunologic: Allergic/Immunologic: Reports wheezing PMFSH Past Medical History Medical History Anxiety Asthma Depression GERD (gastroesophageal reflux disease) HLD (hyperlipidemia) HTN (hypertension) Methadone use Personal history of nicotine dependence Tubular adenoma of colon (~2010) Surgical History History of colonoscopy History of left knee surgery (~09/2013) History of left knee surgery (~04/2013) Social History Social History Alcohol intake: current Alcohol intake frequency: holidays/special occasions only Alcohol type: beer Patient Tobacco Use Status: Current everyday Tobacco user Substance Use Type: Heroin Physical Exam ED Vital Signs: Vital Signs - 24 hr 05/24/23 19:24 05/24/23 19:50 Temperature 98.3 F Pulse Rate 97 79 Respiratory Rate 18 18 Blood Pressure 143/80 H Pulse Oximetry 97 Oxygen Delivery Method Room Air BMI result Body Mass Index 35.9 Const General: healthy appearing, comfortable, no acute distress, alert and awake Nutritional Appearance: well nourished Orientation/consciousness: patient oriented x3 HENMT Head: Yes normocephalic and Yes atraumatic Eyes Eyelids: Yes eyelids normal Conjunctivae: conjunctivae normal Sclerae: sclerae normal Corneas: corneas normal Pupils: Equal, round and reactive pupils present EOM: EOMs intact bilaterally Neck Neck: Yes full ROM Resp Other: Diffuse expiratory wheeze heard best in the bases Effort & Inspection: normal respiratory effort, able to speak in complete sentences and not labored GI Inspection: No distended Palpation (GI): Soft to palpation, not firm, nontender, no guarding and not rigid Skin General skin exam: elasticity normal Neuro General: patient oriented x3 Cranial nerves: Yes Equal, round and reactive pupils present and Yes Bilaterally intact EOM present Cognition (Neuro): normal cognition Extrem Other: Moving all extremities well without any obvious deformities Course Course Course Narrative: This is a rapid medical exam. deferred additional HPI, ROS, PE to primary provider. 63 yo male with history of copd, htn, hld, depression, anxiety here with flu like symptoms x several days. Will obtain viral testing, CXR EKG ordered from triage Pulse ox 91%. will give bronchodilator Medications Administered Discontinued Medications Generic Name Dose Route Start Last Admin Trade Name Freq PRN Reason Stop Dose Admin Albuterol Sulfate 2.5 mg/ 0 mg 05/24/23 19:45 05/24/23 19:49 Albuterol/Ipratropium 3 ml INHALE 05/24/23 19:46 1 dose ONCE ONE Administration Medical Decision Making Medical Decision Making MDM Narrative: 63-year-old male presents for evaluation of continued cough, shortness of breath or return if days ago. His vital signs are stable but he is wheezy on exam. Plan to treat with nebulizer. He reports completing a course of prednisone last week. Plan for chest x-ray, viral swabs. Will have low threshold to treat with antibiotics given the patient's history of asthma and the fact that he already completed a prednisone course. Differential Diagnosis Differential Diagnoses: The differential diagnosis associated with the presentation includes Asthma exacerbation Viral syndrome Pneumonia Upper respiratory infection Lab Data Labs: Lab Results 05/24/23 Range/Units 20:09 Influenza Type A (PCR) NEGATIVE (Negative) Influenza Type B (PCR) NEGATIVE (Negative) RSV RNA Qual (PCR) NEGATIVE (Negative) SARS-CoV-2 RNA (RT-PCR) NEGATIVE (Negative) Independent Interpretation I performed an independent interpretation of an: Plain X-Ray (No focal infiltrates) Discharge Plan Discharge Clinical Impression: Acute upper respiratory infection, Asthma Patient Disposition: Home, Self-Care Instructions: Upper Respiratory Infection (ED) Additional Instructions: Your workup in the ER today was reassuring. Your x-ray did not show any evidence of pneumonia. UA negative for the flu, COVID, and RSV. Use azithromycin as directed Continue to use your nebulizer treatments at home as prescribed Prescriptions: New azithromycin 250 mg tablet See Rx Instructions .ROUTE .COMPLEX Qty: 6 0RF Rx Instructions: For 250 mg dose pack: take 500 mg today (day 1), then 250 mg for 4 days (days 2-5) No Action tramadol 50 mg tablet 50 mg PO Q12H PRN (Reason: pain) Qty: 30 0RF azithromycin 250 mg tablet See Rx Instructions .ROUTE .COMPLEX Qty: 6 0RF Rx Instructions: For 250 mg dose pack: take 500 mg today (day 1), then 250 mg for 4 days (days 2-5) prednisone 20 mg tablet 60 mg PO DAILY 5 Days Qty: 15 0RF prednisone 50 mg tablet 50 mg PO DAILY Qty: 5 0RF albuterol sulfate 90 mcg/actuation HFA aerosol inhaler 2 puff inhalation Q4-6H PRN (Reason: shortness of breath or wheezing) Qty: 8.5 1RF cephalexin 500 mg capsule 500 mg PO BID 7 Days Qty: 14 0RF albuterol sulfate 90 mcg/actuation aerosol powdr breath activated 2 inh inhalation Q4-6H PRN (Reason: shortness of breath or wheezing) Qty: 1 0RF albuterol sulfate 2.5 mg /3 mL (0.083 %) solution for nebulization 2.5 mg inhalation Q6H Qty: 75 0RF prednisone 20 mg tablet 40 mg PO DAILY 5 Days Qty: 10 0RF azithromycin 250 mg tablet See Rx Instructions .ROUTE .COMPLEX Qty: 6 0RF Rx Instructions: For 250 mg dose pack: take 500 mg today (day 1), then 250 mg for 4 days (days 2-5) naproxen [Naprosyn] 500 mg tablet 500 mg PO BID Qty: 20 0RF bupropion HCl 300 mg tablet extended release 24 hr 300 mg PO DAILY eszopiclone 3 mg tablet 3 mg PO BEDTIME PRN escitalopram oxalate 20 mg tablet 20 mg PO DAILY mirtazapine 30 mg tablet 30 mg PO BEDTIME clonazepam 0.5 mg tablet 0.5 mg PO BID PRN Atrovent HFA 17 mcg/actuation HFA aerosol inhaler inhalation amlodipine 2.5 mg tablet 2.5 mg PO DAILY ferrous sulfate [FeroSul] 325 mg (65 mg iron) tablet PO ascorbic acid (vitamin C) 250 mg tablet 250 mg PO DAILY omeprazole 40 mg capsule,delayed release(DR/EC) 40 mg PO DAILY atorvastatin 10 mg tablet 10 mg PO DAILY
[2023-05-24] MEDS: Albuterol Sulfate 2.5 MG, Albuterol/Iprat 2.5/0.5MG 3 ML 3 ML INHALE (19:49)
[2023-05-24 19:50] VITALS: PULSE 79; RESP 18; O2SAT 94
[2023-05-24 20:53] LABS: Influenza A PCR NEGATIVE (Negative); Influenza B PCR NEGATIVE (Negative); Resp Syncy Virus RNA Qual PCR NEGATIVE (Negative); SARS COV2 PCR INHOUSE NEGATIVE (Negative)
== END 2023-05-24 21:40 | disposition home or self-care (01) ==
PROVIDERS: Nurse Practitioner Family; Emergency Provider Internal Medicine; PCP Internal Medicine Geriatric Medicine
DX: J06.9 Acute upper respiratory infection, unspecified (principal); R07.89 Other chest pain; R05.9 Cough, unspecified; R06.02 Shortness of breath; J45.909 Unspecified asthma, uncomplicated; Z20.822 Contact with and (suspected) exposure to COVID-19; Z11.52 Encounter for screening for COVID-19
CPT/HCPCS: 0241U; 71046; 93005; 94640; 99284

== ENCOUNTER → 2023-05-24 17:36 | Outpatient (BNV) | payer OTHER, SELFPAY | PROVIDERS: Emergency Provider Internal Medicine; PCP Internal Medicine Geriatric Medicine; Visit Provider Internal Medicine Cardiovascular Disease | DX: R07.9 Chest pain, unspecified (principal) | CPT/HCPCS: 93010 ==

== ENCOUNTER 2023-08-09 10:07 | Outpatient (REF) | payer OTHER, SELFPAY ==
[2023-08-09 11:42] LABS: MANUAL DIFF FLAG NO
[2023-08-09 11:46] LABS: Basophils Percent Auto 0.3 % (0-2); Eosinophils Absolute Auto 0.1 X10*3/uL (0.0-0.4); Eosinophils Percent Auto 1.4 % (0-4); Hematocrit 48.2 % (42.0-52.0); Hemoglobin 15.6 g/dl (14.0-18.0); Imm Gran Abs Auto 0.04 X10*3/uL (0.00-0.03); Imm Gran Pct Auto 0.4 % (0.0-0.4); Lymphocytes Absolute Auto 1.7 X10*3/uL (1.2-4.9); Mean Corpuscular HGB Conc 32.4 g/dl (31.0-36.0); Mean Corpuscular Hemoglobin 27.6 pg (27.0-33.0); Mean Corpuscular Volume 85.2 fL (80.0-98.0); Mean Platelet Volume 10.3 fL (9.4-12.4); Monocytes Absolute Auto 0.5 X10*3/uL (0.1-1.2); Monocytes Percent Auto 5.7 % (2-11); Neutrophils Absolute Auto 6.6 x10*3/uL (2.0-8.3); Neutrophils Percent Auto 73.2 % (45-73); Platelet Count 287 X10*3/uL (160-400); Red Blood Count 5.66 X10*6/uL (4.60-5.80); Red Cell Distribution Width 13.9 % (11.0-16.0)
[2023-08-09 12:26] LABS: Alanine Aminotransferase 28 U/L (0-40); Albumin Level 3.4 g/dL (3.5-5.0); Alkaline Phosphatase 114 U/L (39-117); Anion Gap 13 (12-20); Aspartate Amino Transferase 22 U/L (5-37); Bilirubin Total 0.3 mg/dL (0.0-1.0); Blood Urea Nitrogen 12 mg/dL (9-16); Calcium 9.5 mg/dL (8.4-10.2); Carbon Dioxide 28 mmol/L (22-29); Chloride 105 mmol/L (96-108); Cholesterol 221 mg/dL (<200); Estimated Glomerular Filt Rate > 60; Glucose Random 114 mg/dL (60-115); HDL Cholesterol 47 mg/dL (>40); LDL Cholesterol Calculated 144 mg/dL (<100); Potassium 4.8 mmol/L (3.3-5.1); Sodium 141 mmol/L (135-145); Total Protein 6.7 g/dL (6.5-8.0); Triglycerides 151 mg/dL (<150)
[2023-08-09 12:37] LABS: Prostate Specific Antigen 0.31 ng/mL (<0.05-4.0)
[2023-08-09 12:43] LABS: Hepatitis A Antibody IgG REACTIVE (Nonreactive); ~Hepatitis A Antibody IgG 12.11 S/CO (0.00-0.99)
[2023-08-09 13:13] LABS: HBS Num1 1.44 mIU/mL (0-7.99); HBc Num1 0.11 S/CO (0.00-0.79); HBsAGNum1 0.19 S/CO (0.00-0.99); HIV AB/AG Nonreactive (Nonreactive); HIV Num 1 0.18 S/CO (0.00-0.99); Hepatitis B Core Antibody Nonreactive (Nonreactive); Hepatitis B Surface Antigen Negative (Negative); ~HepC Num1 0.13 S/CO (0.00-0.79); ~Hepatitis B Surface Antibody NONREACTIVE (Nonreactive); ~Hepatitis C Antibody Nonreactive (Nonreactive)
== END 2023-08-09 10:08 | disposition home or self-care (01) ==
LOC: HO.HHCL 10:07
PROVIDERS: Visit Provider Internal Medicine Geriatric Medicine
DX: I10 Essential (primary) hypertension (principal); F11.20 Opioid dependence, uncomplicated; E78.49 Other hyperlipidemia; Z12.5 Encounter for screening for malignant neoplasm of prostate
CPT/HCPCS: 36415; 80053; 80061; 84153; 85025; 86704; 86706; 86708; 86803; 87340; 87389

== ENCOUNTER 2024-01-05 20:14 | Emergency (ER) | payer OTHER, SELFPAY ==
--- NOTE | ~2024-01-05 | XR_ITS ---
EXAMINATION: XR CHEST CLINICAL INFORMATION: Shortness of breath COMPARISON: None available. TECHNIQUE: Frontal view of the chest was obtained. FINDINGS: No significant abnormality is noted involving the heart, lungs, mediastinum, bony thorax or soft tissues. XR/XR chest 1V IMPRESSION: Unremarkable examination. Electronically signed by: Darshan Enriquez DO 01/05/2024 10:34 PM EDT
[2024-01-05 20:21] VITALS: BP 135/77; PULSE 89; RESP 18; TEMP 36.7; O2SAT 88; BMI 35.4
[2024-01-05 20:38] LABS: MANUAL DIFF FLAG NO
[2024-01-05 20:39] LABS: Basophils Absolute Auto 0.1 X10*3/uL (0.0-0.2); Basophils Percent Auto 0.6 % (0-2); Eosinophils Absolute Auto 0.7 X10*3/uL (0.0-0.4); Eosinophils Percent Auto 8.4 % (0-4); Hemoglobin 13.4 g/dl (14.0-18.0); Imm Gran Abs Auto 0.03 X10*3/uL (0.00-0.03); Imm Gran Pct Auto 0.4 % (0.0-0.4); Lymphocytes Absolute Auto 2.5 X10*3/uL (1.2-4.9); Lymphocytes Percent Auto 29.5 % (20-40); Mean Corpuscular HGB Conc 32.7 g/dl (31.0-36.0); Mean Corpuscular Hemoglobin 28.2 pg (27.0-33.0); Mean Corpuscular Volume 86.1 fL (80.0-98.0); Mean Platelet Volume 9.7 fL (9.4-12.4); Monocytes Absolute Auto 0.7 X10*3/uL (0.1-1.2); Neutrophils Absolute Auto 4.5 x10*3/uL (2.0-8.3); Neutrophils Percent Auto 53.1 % (45-73); Platelet Count 251 X10*3/uL (160-400); Red Blood Count 4.76 X10*6/uL (4.60-5.80); Red Cell Distribution Width 13.9 % (11.0-16.0); White Blood Count 8.4 X10*3/uL (4.8-10.8)
[2024-01-05] MEDS: methylPREDNISolone Sod Succ 125 MG/2 ML VIAL 60 MG IVPUSH (20:42)
[2024-01-05] MEDS: Albuterol Sulfate 5 MG, Albuterol/Iprat 2.5/0.5MG 3 ML 3 ML INHALE ×2 (20:48→22:09)
[2024-01-05 20:50] VITALS: PULSE 72; RESP 22; O2SAT 91
--- NOTE | 2024-01-05 20:51 | MHC.EDTECH ---
Patient changed into hospital attire,placed pt on the ediphone operator,pt is getting an updraft at this time,call ruiz in reach
[2024-01-05 20:54] LABS: Alanine Aminotransferase 19 U/L (0-40); Albumin Level 3.1 g/dL (3.5-5.0); Alkaline Phosphatase 104 U/L (39-117); Anion Gap 10 (12-20); Aspartate Amino Transferase 22 U/L (5-37); Bilirubin Total 0.2 mg/dL (0.0-1.0); Blood Urea Nitrogen 22 mg/dL (9-16); Calcium 8.2 mg/dL (8.4-10.2); Carbon Dioxide 27 mmol/L (22-29); Chloride 107 mmol/L (96-108); Creatinine Clr Calc Pharmacy 97.8; Estimated Glomerular Filt Rate > 60; Glucose Random 84 mg/dL (60-115); Potassium 4.2 mmol/L (3.3-5.1); Sodium 140 mmol/L (135-145)
[2024-01-05 21:19] LABS: Influenza A PCR NEGATIVE (Negative); Influenza B PCR NEGATIVE (Negative); Resp Syncy Virus RNA Qual PCR NEGATIVE (Negative); SARS COV2 PCR INHOUSE NEGATIVE (Negative)
[2024-01-05 22:09] VITALS: PULSE 75; RESP 22; O2SAT 93
[2024-01-05] MEDS: Magnesium Sulfate/H2O 2 GM/50 ML PIGGYBACK IV (22:14)
--- NOTE | 2024-01-05 22:19 | PC.NURSE ---
pt medicated per MAY- pt currently rec updraft per MAY
[2024-01-05 23:23] VITALS: BP 120/77; PULSE 84; RESP 16; TEMP 36.6; O2SAT 91
[2024-01-06 00:09] VITALS: BP 139/72; PULSE 86; RESP 20; TEMP 37.2; O2SAT 96
--- NOTE | 2024-01-06 00:18 | ED_ITS ---
HPI - General Adult General Chief complaint: Dyspnea Stated complaint: Asthma Time Seen by Provider: 01/05/24 21:44 Source: patient Limitations: language barrier History of Present Illness ED Provider: Rebecca Mancuso PA-C HPI narrative: 63-year-old male with a history of asthma/COPD, tobacco abuse presents with cough cold symptoms x 2 days. Associated dry, repetitive bronchospasm type cough with nasal congestion. Denies fevers. Denies sick contacts with same symptoms. Related Data Home Medications ?Medication ?Instructions ?Recorded ?Confirmed amlodipine 2.5 mg tablet 2.5 mg PO DAILY 12/19/22 12/19/22 ascorbic acid (vitamin C) 250 mg 250 mg PO DAILY 12/19/22 12/19/22 tablet atorvastatin 10 mg tablet 10 mg PO DAILY 12/19/22 12/19/22 bupropion HCl 300 mg 24 hr tablet, 300 mg PO DAILY 12/19/22 12/19/22 extended release clonazepam 0.5 mg tablet 0.5 mg PO BID PRN 12/19/22 12/19/22 escitalopram oxalate 20 mg tablet 20 mg PO DAILY 12/19/22 12/19/22 eszopiclone 3 mg tablet 3 mg PO BEDTIME PRN 12/19/22 12/19/22 ferrous sulfate 325 mg (65 mg mg PO 12/19/22 12/19/22 iron) tablet (FeroSul) ipratropium bromide 17 inhalation 12/19/22 12/19/22 mcg/actuation HFA aerosol inhaler (Atrovent HFA) mirtazapine 30 mg tablet 30 mg PO BEDTIME 12/19/22 12/19/22 omeprazole 40 mg capsule,delayed 40 mg PO DAILY 12/19/22 12/19/22 release Previous Rx's ?Medication ?Instructions ?Recorded azithromycin 250 mg tablet See Rx Instructions PO .COMPLEX #6 01/26/22 tabs prednisone 20 mg tablet 60 mg (3 x 20 mg) PO DAILY 5 days 01/26/22 #15 tabs albuterol sulfate 90 mcg/actuation 2 puff inhalation Q4-6H PRN 02/11/22 aerosol inhaler shortness of breath or wheezing #8.5 grams prednisone 50 mg tablet 50 mg PO DAILY #5 tabs 02/11/22 cephalexin 500 mg capsule 500 mg PO BID 7 days #14 caps 04/20/22 albuterol sulfate 2.5 mg/3 mL 2.5 mg (3 mL) inhalation Q6H #75 mL 05/08/22 (0.083 %) solution for nebulization albuterol sulfate 90 mcg/actuation 2 inh inhalation Q4-6H PRN 05/08/22 breath activated powder inhaler shortness of breath or wheezing #1 ea prednisone 20 mg tablet 40 mg (2 x 20 mg) PO DAILY 5 days 05/08/22 #10 tabs azithromycin 250 mg tablet See Rx Instructions PO .COMPLEX #6 05/09/22 tabs naproxen 500 mg tablet (Naprosyn) 500 mg PO BID #20 tabs 10/14/22 tramadol 50 mg tablet 50 mg PO Q12H PRN pain #30 tabs 03/08/23 azithromycin 250 mg tablet See Rx Instructions PO .COMPLEX #6 05/24/23 tabs prednisone 20 mg tablet 40 mg (2 x 20 mg) PO DAILY #8 tabs 01/06/24 Allergies Allergy/AdvReac Type Severity Reaction Status Date / Time No Known Allergies Allergy Verified 01/05/24 20:23 Review of Systems 2 Review of Systems: Yes all other systems are reviewed and are negative Constitutional: Constitutional: Denies fever(s) ENT: Reports nasal congestion Cardiovascular: Cardiovascular: Denies chest pain and Reports dyspnea Respiratory: Respiratory: Reports cough, Reports dyspnea and Reports wheezing Allergic/Immunologic: Allergic/Immunologic: Reports wheezing PMFSH Past Medical History Attestation statement: The following information was validated with the patient. Medical History Anxiety Asthma Depression GERD (gastroesophageal reflux disease) HLD (hyperlipidemia) HTN (hypertension) Methadone use Personal history of nicotine dependence Tubular adenoma of colon (~2010) Surgical History History of colonoscopy History of left knee surgery (~09/2013) History of left knee surgery (~04/2013) Social History Social History Alcohol intake: current Alcohol intake frequency: holidays/special occasions only Alcohol type: beer Patient Tobacco Use Status: Current everyday Tobacco user Substance Use Type: Heroin Advance Directives: No Advance Directives Information Provided: No Do you have a plan to hurt others: No Plan Physical Exam ED Vital Signs: Vital Signs - 24 hr 01/05/24 20:21 01/05/24 20:50 01/05/24 22:09 Temperature 98.1 F Pulse Rate 89 72 75 Respiratory Rate 18 22 H 22 H Blood Pressure 135/77 Pulse Oximetry 88 L Oxygen Delivery Method Room Air 01/05/24 23:23 01/06/24 00:09 Temperature 97.8 F 98.9 F Pulse Rate 84 86 Respiratory Rate 16 20 Blood Pressure 120/77 139/72 Pulse Oximetry 91 L 96 Oxygen Delivery Method Room Air Room Air BMI result Body Mass Index 35.4 Const Other: Alert, overall well in appearance Orientation/consciousness: patient oriented x3 Resp Other: Nonlabored respirations, scattered expiratory wheezes, active bronchospasm type cough Cardio Other: Normal peripheral perfusion Skin Other: Warm dry no rash Neuro General: patient oriented x3, no focal motor deficits and CN's II-XI intact bilaterally Psych Other: Cooperative Course Reevaluation(s) Reevaluation #1: Patient is 96% on room air, he is eager for discharge, standing in the doorway waiting to be discharged Time: 00:22 Medications Administered Discontinued Medications Generic Name Dose Route Start Last Admin Trade Name Freq PRN Reason Stop Dose Admin Albuterol Sulfate 5 mg/ 0 mg 01/05/24 20:42 01/05/24 20:48 Albuterol/Ipratropium 3 ml INHALE 01/05/24 20:43 1 each ONCE ONE Administration Albuterol Sulfate 5 mg/ 0 mg 01/05/24 22:07 01/05/24 22:09 Albuterol/Ipratropium 3 ml INHALE 01/05/24 22:08 1 each ONCE ONE Administration Magnesium Sulfate 2 gm in 50 mls @ 25 mls/hr 01/05/24 21:49 01/06/24 00:20 Magnesium Sulfate/H2o IV 01/05/24 23:48 Infused ONCE ONE Infusion Methylprednisolone Sodium Succinate 60 mg 01/05/24 20:33 01/05/24 20:42 Methylprednisolone Sod Succ 125 Mg/2 Ml Vial IVPUSH 01/05/24 20:34 60 mg ONCE ONE Administration Medical Decision Making Medical Decision Making MDM Narrative: 63-year-old male with a history of asthma/COPD, tobacco abuse presents with cough cold symptoms x 2 days. Associated dry, repetitive bronchospasm type cough with nasal congestion. Denies fevers. Denies sick contacts with same symptoms. Problem: Asthma/COPD, tobacco abuse History: Per patient I have considered the following differential diagnoses: COPD/asthma exacerbation, viral syndrome, pneumonia, bronchitis Plan: Screening labs including viral panel and chest x-ray were ordered from triage. Sounds as if the patient has viral syndrome, as the likely trigger for his current asthma/COPD exacerbation. Received 1 DuoNeb already. We will order an additional albuterol nebulizer treatment, he already received Solu-Medrol, we will also give 2 g of magnesium IV. I have independently reviewed the following tests: Labs: No leukocytosis, not anemic, no electrolyte abnormality, viral panel negative, the patient was screened for RSV, COVID and influenza Chest x-ray: No pneumonia, no pleural effusion no pulmonary edema Lab Data 01/05/24 20:33 01/05/24 20:33 Labs: Lab Results 01/05/24 01/05/24 Range/Units 20:33 20:36 WBC 8.4 (4.8-10.8) X10*3/uL RBC 4.76 (4.60-5.80) X10*6/uL Hgb 13.4 L (14.0-18.0) g/dl Hct 41.0 L (42.0-52.0) % MCV 86.1 (80.0-98.0) fL MCH 28.2 (27.0-33.0) pg MCHC 32.7 (31.0-36.0) g/dl RDW 13.9 (11.0-16.0) % Plt Count 251 (160-400) X10*3/uL MPV 9.7 (9.4-12.4) fL Immature Gran % (Auto) 0.4 (0.0-0.4) % Neut % (Auto) 53.1 (45-73) % Lymph % (Auto) 29.5 (20-40) % [place] % (Auto) 8.0 (2-11) % Eos % (Auto) 8.4 H (0-4) % Baso % (Auto) 0.6 (0-2) % Lymph # (Auto) 2.5 (1.2-4.9) X10*3/uL [place] # (Auto) 0.7 (0.1-1.2) X10*3/uL Eos # (Auto) 0.7 H (0.0-0.4) X10*3/uL Baso # (Auto) 0.1 (0.0-0.2) X10*3/uL Abs Immat Gran (auto) 0.03 (0.00-0.03) X10*3/uL Absolute Neuts (auto) 4.5 (2.0-8.3) x10*3/uL Absolute Nucleated RBC 0.000 (0.0-0.012) X10*3/uL Nucleated RBC % (auto) 0.0 (0.0-0.2) /100WBC Sodium 140 (135-145) mmol/L Potassium 4.2 (3.3-5.1) mmol/L Chloride 107 (96-108) mmol/L Carbon Dioxide 27 (22-29) mmol/L Anion Gap 10 L (12-20) BUN 22 H (9-16) mg/dL Creatinine 0.94 (0.5-1.4) mg/dL Estim Creat Clear Calc 97.8 Estimated GFR > 60 Random Glucose 84 (60-115) mg/dL Calcium 8.2 L D (8.4-10.2) mg/dL Total Bilirubin 0.2 (0.0-1.0) mg/dL AST 22 (5-37) U/L ALT 19 (0-40) U/L Alkaline Phosphatase 104 (39-117) U/L Total Protein 6.0 L (6.5-8.0) g/dL Albumin 3.1 L (3.5-5.0) g/dL Influenza Type A (PCR) NEGATIVE (Negative) Influenza Type B (PCR) NEGATIVE (Negative) RSV RNA Qual (PCR) NEGATIVE (Negative) SARS-CoV-2 RNA (RT-PCR) NEGATIVE (Negative) Discharge Plan Discharge Clinical Impression: Acute viral syndrome, Asthma with exacerbation Patient Disposition: Home, Self-Care Instructions: Asthma (ED), Viral Syndrome (ED) Additional Instructions: All of your labs were normal, you were screened for COVID, influenza and RSV, the viral panel was negative. You do not have a pneumonia on your chest x-ray. You are being treated for an asthma/COPD exacerbation. Use your home nebulizer treatment as directed by your primary care provider. Take the steroid as directed, you do not require any additional medication until tomorrow. Call your doctor for a follow up appointment. Prescriptions: New prednisone 20 mg tablet 40 mg PO DAILY Qty: 8 0RF No Action tramadol 50 mg tablet 50 mg PO Q12H PRN (Reason: pain) Qty: 30 0RF azithromycin 250 mg tablet See Rx Instructions .ROUTE .COMPLEX Qty: 6 0RF Rx Instructions: For 250 mg dose pack: take 500 mg today (day 1), then 250 mg for 4 days (days 2-5) prednisone 20 mg tablet 60 mg PO DAILY 5 Days Qty: 15 0RF prednisone 50 mg tablet 50 mg PO DAILY Qty: 5 0RF albuterol sulfate 90 mcg/actuation HFA aerosol inhaler 2 puff inhalation Q4-6H PRN (Reason: shortness of breath or wheezing) Qty: 8.5 1RF cephalexin 500 mg capsule 500 mg PO BID 7 Days Qty: 14 0RF albuterol sulfate 90 mcg/actuation aerosol powdr breath activated 2 inh inhalation Q4-6H PRN (Reason: shortness of breath or wheezing) Qty: 1 0RF albuterol sulfate 2.5 mg /3 mL (0.083 %) solution for nebulization 2.5 mg inhalation Q6H Qty: 75 0RF prednisone 20 mg tablet 40 mg PO DAILY 5 Days Qty: 10 0RF azithromycin 250 mg tablet See Rx Instructions .ROUTE .COMPLEX Qty: 6 0RF Rx Instructions: For 250 mg dose pack: take 500 mg today (day 1), then 250 mg for 4 days (days 2-5) naproxen [Naprosyn] 500 mg tablet 500 mg PO BID Qty: 20 0RF azithromycin 250 mg tablet See Rx Instructions .ROUTE .COMPLEX Qty: 6 0RF Rx Instructions: For 250 mg dose pack: take 500 mg today (day 1), then 250 mg for 4 days (days 2-5) bupropion HCl 300 mg tablet extended release 24 hr 300 mg PO DAILY eszopiclone 3 mg tablet 3 mg PO BEDTIME PRN escitalopram oxalate 20 mg tablet 20 mg PO DAILY mirtazapine 30 mg tablet 30 mg PO BEDTIME clonazepam 0.5 mg tablet 0.5 mg PO BID PRN Atrovent HFA 17 mcg/actuation HFA aerosol inhaler inhalation amlodipine 2.5 mg tablet 2.5 mg PO DAILY ferrous sulfate [FeroSul] 325 mg (65 mg iron) tablet PO ascorbic acid (vitamin C) 250 mg tablet 250 mg PO DAILY omeprazole 40 mg capsule,delayed release(DR/EC) 40 mg PO DAILY atorvastatin 10 mg tablet 10 mg PO DAILY Print Language: Lithuanian
[2024-01-06 00:28] VITALS: BP 139/72; PULSE 86; RESP 20; TEMP 37.2; O2SAT 96
== END 2024-01-06 00:29 | disposition home or self-care (01) ==
PROVIDERS: Emergency Provider Emergency Medicine Emergency Medical Services; PCP Internal Medicine Geriatric Medicine
DX: B34.9 Viral infection, unspecified (principal); J45.901 Unspecified asthma with (acute) exacerbation; I10 Essential (primary) hypertension; E78.5 Hyperlipidemia, unspecified; Z79.02 Long term (current) use of antithrombotics/antiplatelets; Z79.899 Other long term (current) drug therapy; Z03.818 Encounter for observation for suspected exposure to other biological agents ruled out
CPT/HCPCS: 0241U; 36415; 71045; 80053; 85025; 94640; 96365; 96366; 96375; 99284; 99285; J2919; J3475

== ENCOUNTER → 2024-09-26 20:47 | Outpatient (BNV) | payer OTHER, SELFPAY | PROVIDERS: Visit Provider Radiology Diagnostic Radiology | DX: M54.2 Cervicalgia (principal); V89.2XXA Person injured in unspecified motor-vehicle accident, traffic, initial encounter | CPT/HCPCS: 72050 ==

== ENCOUNTER 2024-09-26 21:15 | Emergency (ER) | payer OTHER, SELFPAY ==
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
[2024-09-26 21:16] VITALS: BP 112/61; PULSE 85; RESP 20; TEMP 36.1; O2SAT 96; BMI 33.2
[2024-09-26] MEDS: Acetaminophen 325 MG TABLET 650 MG PO (21:24)
--- OUTSIDE RECORDS SUMMARY | 2024-09-26 22:02 | XMS_ITS | Clinical Summary ---
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
[2024-09-26 23:12] VITALS: BP 98/63; PULSE 75; RESP 17; TEMP 36.7; O2SAT 97
[2024-09-26] MEDS: Lidocaine 4 % Patch ADH..PATCH 1 PATCH TRANSDERMA (23:43)
[2024-09-26] MEDS: Ibuprofen 600 MG TABLET PO (23:44)
[2024-09-27 00:50] VITALS: BP 120/68; PULSE 75; RESP 17; TEMP 36.7; O2SAT 97
== END 2024-09-27 00:15 | disposition home or self-care (01) ==
PROVIDERS: Emergency Provider Emergency Medicine
DX: S13.4XXA Sprain of ligaments of cervical spine, initial encounter (principal); S39.012A Strain of muscle, fascia and tendon of lower back, initial encounter; V43.52XA Car driver injured in collision with other type car in traffic accident, initial encounter; Y93.89 Activity, other specified; Y92.414 Local residential or business street as the place of occurrence of the external cause; Y99.9 Unspecified external cause status
CPT/HCPCS: 72050; 99283; 99284

== ENCOUNTER 2024-11-03 20:32 | Emergency (ER) | payer OTHER, SELFPAY ==
--- NOTE | ~2024-11-03 | XR_ITS ---
CLINICAL HISTORY: SOB 1 view chest x-ray Comparison: Chest x-ray from 01/05/2024 Findings: Low lung volumes with mild bibasilar atelectasis/pneumonitis. No pneumothorax or pleural effusion. No significant change of the imaged mediastinum or imaged osseous structures. IMPRESSION: Low lung volumes with mild bibasilar atelectasis/pneumonitis. This document has been electronically signed by: Jose Matamoros MD on 11/03/2024 21:40:51
[2024-11-03 20:45] VITALS: BP 135/70; PULSE 98; RESP 20; TEMP 36.7; O2SAT 88; BMI 33.9
--- NOTE | 2024-11-03 20:45 | ED.GENADULT ---
HPI - General Adult General Chief complaint: Asthma Stated complaint: SOB since yesterday gotten worse Time Seen by Provider: 11/03/24 22:20 Source: patient and core inspector Mode of arrival: ambulatory Limitations: no limitations History of Present Illness ED Provider: DR. Corral HPI narrative: a 64-year-old male ambulated to the emergency department for evaluation of shortness of breath, patient is known history of asthma, stated that he has been having the symptoms x2 days despite using his asthma home medication without relief of his symptoms, no fever, no chills, coughing with no sputum patient noted to be diaphoretic in triage, had O2 sat of 88% on room air. patient is an active smoker for many years. No recent travel, no lower extremity swelling or tenderness, No sick contacts. Patient was moved to room 10 received bronchodilator, steroids, and magnesium IV patient felt better Patient is requesting to go home. Related Data Home Medications ?Medication ?Instructions ?Recorded ?Confirmed amlodipine 2.5 mg tablet 2.5 mg PO DAILY 12/19/22 12/19/22 ascorbic acid (vitamin C) 250 mg 250 mg PO DAILY 12/19/22 12/19/22 tablet atorvastatin 10 mg tablet 10 mg PO DAILY 12/19/22 12/19/22 bupropion HCl 300 mg 24 hr tablet, 300 mg PO DAILY 12/19/22 12/19/22 extended release clonazepam 0.5 mg tablet 0.5 mg PO BID PRN 12/19/22 12/19/22 escitalopram oxalate 20 mg tablet 20 mg PO DAILY 12/19/22 12/19/22 eszopiclone 3 mg tablet 3 mg PO BEDTIME PRN 12/19/22 12/19/22 ferrous sulfate 325 mg (65 mg mg PO 12/19/22 12/19/22 iron) tablet (FeroSul) ipratropium bromide 17 inhalation 12/19/22 12/19/22 mcg/actuation HFA aerosol inhaler (Atrovent HFA) mirtazapine 30 mg tablet 30 mg PO BEDTIME 12/19/22 12/19/22 omeprazole 40 mg capsule,delayed 40 mg PO DAILY 12/19/22 12/19/22 release Previous Rx's ?Medication ?Instructions ?Recorded azithromycin 250 mg tablet See Rx Instructions PO .COMPLEX #6 01/26/22 tabs prednisone 20 mg tablet 60 mg (3 x 20 mg) PO DAILY 5 days 01/26/22 #15 tabs albuterol sulfate 90 mcg/actuation 2 puff inhalation Q4-6H PRN 02/11/22 aerosol inhaler shortness of breath or wheezing #8.5 grams prednisone 50 mg tablet 50 mg PO DAILY #5 tabs 02/11/22 cephalexin 500 mg capsule 500 mg PO BID 7 days #14 caps 04/20/22 albuterol sulfate 2.5 mg/3 mL 2.5 mg (3 mL) inhalation Q6H #75 mL 05/08/22 (0.083 %) solution for nebulization albuterol sulfate 90 mcg/actuation 2 inh inhalation Q4-6H PRN 05/08/22 breath activated powder inhaler shortness of breath or wheezing #1 ea prednisone 20 mg tablet 40 mg (2 x 20 mg) PO DAILY 5 days 05/08/22 #10 tabs azithromycin 250 mg tablet See Rx Instructions PO .COMPLEX #6 05/09/22 tabs naproxen 500 mg tablet (Naprosyn) 500 mg PO BID #20 tabs 10/14/22 tramadol 50 mg tablet 50 mg PO Q12H PRN pain #30 tabs 03/08/23 azithromycin 250 mg tablet See Rx Instructions PO .COMPLEX #6 05/24/23 tabs prednisone 20 mg tablet 40 mg (2 x 20 mg) PO DAILY #8 tabs 01/06/24 acetaminophen 500 mg capsule 1,000 mg (2 x 500 mg) PO .q8 PRN 09/26/24 fever or pain #30 caps ibuprofen 600 mg tablet 600 mg PO Q8H PRN fever or pain 09/26/24 #30 tabs albuterol sulfate 90 mcg/actuation 2 puff inhalation Q6H PRN 11/03/24 aerosol inhaler (Ventolin HFA) shortness of breath or wheezing #8.5 grams azithromycin 250 mg tablet See Rx Instructions PO .COMPLEX #6 11/03/24 (Zithromax Z-Albert) tabs prednisone 20 mg tablet 20 mg PO BID #10 tabs 11/03/24 Allergies Allergy/AdvReac Type Severity Reaction Status Date / Time No Known Allergies Allergy Verified 11/03/24 20:46 Review of Systems Review of Systems: all other systems are reviewed and are negative Constitutional: Reports as per HPI and Reports no additional constitutional complaints Eyes: Reports as per HPI and Reports no additional eye complaints Reports system reviewed and no additional complaints, except as documented Cardiovascular: Reports as per HPI and Reports no additional cardiovascular complaints Respiratory: Reports as per HPI and Reports no additional respiratory complaints Gastrointestinal: Reports as per HPI and Reports no additional gastrointestinal complaints Genitourinary: Reports no additional female genitourinary complaints Musculoskeletal: Reports no additional musculoskeletal complaints Skin/Breast: Reports system reviewed and no additional complaints, except as docu Psychiatric: Reports no additional psychiatric complaints Endocrine: Reports no additional endocrine complaints Hematologic/Lymphatic: Reports no additional hematologic/lymphatic complaints Allergic/Immunologic: Reports no additional allergic/immunologic complaints Reports system reviewed and no additional complaints, except as documented and Reports Abnormal speech present FOR[facility]LY [facility] Past Medical History Medical History Methadone use Tubular adenoma of colon (~2010) GERD (gastroesophageal reflux disease) HLD (hyperlipidemia) Personal history of nicotine dependence Anxiety Depression HTN (hypertension) Asthma Surgical History History of colonoscopy History of left knee surgery (~09/2013) History of left knee surgery (~04/2013) Social History Social History Alcohol intake: current Alcohol intake frequency: holidays/special occasions only Alcohol type: beer Patient Tobacco Use Status: Current everyday Tobacco user Smoked in Last 30 Days: Yes Use of substances other than those prescribed or required for medical reasons: Yes Substance Use Type: Heroin Substance Use Frequency: Occasionally Substance Use Frequency Other:: a month ago, patient is on methadone, ocassionally snorts heroin. Advance Directives: No Advance Directives Information Provided: No Do you have a plan to hurt others: No Plan Physical Exam ED Vital Signs: Vital Signs - 24 hr 11/03/24 20:45 11/03/24 21:22 11/03/24 21:24 Temperature 98.0 F Pulse Rate 98 95 95 Respiratory Rate 20 13 18 Blood Pressure 135/70 102/67 Pulse Oximetry 88 L 91 L Oxygen Delivery Method Room Air Nasal Cannula Room Air Oxygen Flow Rate 11/03/24 21:40 11/03/24 22:07 Temperature 97.9 F Pulse Rate 102 H 100 Respiratory Rate 18 16 Blood Pressure 102/67 Pulse Oximetry 92 Oxygen Delivery Method Nasal Cannula Oxygen Flow Rate 2 BMI result Body Mass Index 33.9 Vital signs have been reviewed and appear to be correct. Blood pressure elevated. Heart rate normal. Respiratory rate normal. Temperature normal. Oxygen saturation normal. Appearance: Alert. Oriented X3. No acute distress. Head: Normal external exam. Normocephalic. Atraumatic. No Maldonado signs noted. No raccoon eyes noted Eyes: PERRLA. EOMI. Conjunctiva and sclera normal. Eyelids normal. ENT: TM's Normal. Pharynx normal. Uvula midline. Moist mucous membranes. No trismus noted. No drooling noted. No muffled voice noted. Neck: Normal inspection. Neck supple. FROM. No adenopathy. Thyroid Normal. No meningeal signs. No neck mass noted. CVS: Normal heart rate and rhythm. Heart sound normal. No murmurs noted. Pulses normal throughout. Respiratory: No respiratory distress. Painless inspiration. diffuse mild expiratory wheezing with prolonged expiration, decreased breathing sounds bilaterally. No accessory muscle usage noted or decreased air movement noted. Abdomen: Soft and nontender. Bowel sounds normal in all 4 quadrants. No distention noted. No organomegaly noted. No visible injury noted. Back: No CVA tenderness. Full range of motion noted. Skin: Skin warm and dry. Normal skin color. Normal skin turgor. No rashes/lesions/lacerations noted. Extremities: No lower extremity edema. Extremities exhibit normal range of motion. Extremities nontender. Neuro: Oriented X 3. Cranial nerve exam: II-XII are grossly intact No motor deficit. No sensory deficit. Reflexes normal. Course Course Course Narrative: RME performed by Chelo Rojo PA-C. Patient is a 64 year old assigned male at presenting to the emergency department with shortness of breath. Detailed physical exam and review of systems are deferred to the automotive fuel injection servicer. EKG, labs, imaging, swabs ordered. perinatal director Aware. Reevaluation(s) Reevaluation #1: Patient feels better after received 7.5 mg of albuterol via neb and magnesium with steroids, O2 sat while resting is 95% when patient ambulated in the ED O2 sat was 90% After treatment. patient was instructed to stay longer in the emergency department and possible hospitalization for the low O2, patient insists to be discharged and go home despite the hypoxia, risk of severe hypoxia was discussed with the patient including brain damage and/or , core inspector Service were used to communicate with the patient. patient Will take the risk and wanted to be discharged home, patient will sign a paper for AMA. Time: 23:38 Medications Administered Discontinued Medications Generic Name Dose Route Start Last Admin Trade Name Ronnellq PRN Reason Stop Dose Admin Albuterol Sulfate 7.5 mg/ 10 mg 11/03/24 21:17 11/03/24 21:23 Albuterol Sulfate 2.5 mg INHALE 11/03/24 21:18 10 mg ONCE ONE Administration Albuterol Sulfate 7.5 mg/ 0 mg 11/03/24 21:27 11/03/24 21:28 Albuterol/Ipratropium 3 ml INHALE 11/03/24 21:28 1 each ONCE ONE Administration Magnesium Sulfate/Dextrose 1 gm in 100 mls @ 100 mls/hr 11/03/24 20:46 11/03/24 23:15 Magnesium Sulfate/D5w IV 11/03/24 21:45 Infused ONCE ONE Infusion Methylprednisolone Sodium Succinate 60 mg 11/03/24 20:46 11/03/24 21:20 Methylprednisolone Sod Succ 125 Mg/2 Ml Vial IVPUSH 11/03/24 20:47 60 mg ONCE ONE Administration Medical Decision Making Differential Diagnosis Differential Diagnoses: The differential diagnosis associated with the presentation includes ( Pneumonia, pneumothorax, pleural effusion, bronchitis, asthma exacerbation, ACS.) Admission/Observation Consideration of admission/observation: Escalation of care including admission/observation considered Lab Data MDM Lab Attestation statement: I reviewed the patient's lab results. 11/03/24 21:44 11/03/24 21:44 Labs: Lab Results 11/03/24 11/03/24 Range/Units 21:44 21:52 WBC 10.4 (4.8-10.8) X10*3/uL RBC 4.62 (4.60-5.80) X10*6/uL Hgb 13.0 L (14.0-18.0) g/dl Hct 38.4 L (42.0-52.0) % MCV 83.1 (80.0-98.0) fL MCH 28.1 (27.0-33.0) pg MCHC 33.9 (31.0-36.0) g/dl RDW 13.2 (11.0-16.0) % Plt Count 260 (160-400) X10*3/uL MPV 9.5 (9.4-12.4) fL Immature Gran % (Auto) 0.4 (0.0-0.4) % Neut % (Auto) 57.0 (45-73) % Lymph % (Auto) 29.6 (20-40) % Robertson % (Auto) 6.8 (2-11) % Eos % (Auto) 5.8 H (0-4) % Baso % (Auto) 0.4 (0-2) % Lymph # (Auto) 3.1 (1.2-4.9) X10*3/uL Robertson # (Auto) 0.7 (0.1-1.2) X10*3/uL Eos # (Auto) 0.6 H (0.0-0.4) X10*3/uL Baso # (Auto) 0.0 (0.0-0.2) X10*3/uL Abs Immat Gran (auto) 0.04 H (0.00-0.03) X10*3/uL Absolute Neuts (auto) 5.9 (2.0-8.3) x10*3/uL Absolute Nucleated RBC 0.000 (0.0-0.012) X10*3/uL Nucleated RBC % (auto) 0.0 (0.0-0.2) /100WBC VBG pH 7.37 (7.32-7.43) VBG pCO2 48 mmHg VBG pO2 67 mmHg VBG HCO3 28 H (22-26) mmol/L VBG O2 Saturation 92.0 % VBG Base Excess 2.5 mmol/L Sodium 141 (135-145) mmol/L Potassium 4.0 (3.3-5.1) mmol/L Chloride 110 H (96-108) mmol/L Carbon Dioxide 25 (22-29) mmol/L Anion Gap 10 L (12-20) BUN 24 H (9-16) mg/dL Creatinine 0.99 (0.5-1.4) mg/dL Estim Creat Clear Calc 89.6 Estimated GFR > 60 Random Glucose 110 (60-115) mg/dL Calcium 8.6 (8.4-10.2) mg/dL Total Bilirubin 0.1 (0.0-1.0) mg/dL AST 25 (5-37) U/L ALT 19 (0-40) U/L Alkaline Phosphatase 120 H (39-117) U/L Troponin I High Sens 6.2 D (<3.5-35.0) ng/L Total Protein 6.0 L (6.5-8.0) g/dL Albumin 3.0 L (3.5-5.0) g/dL Influenza Type A (PCR) NEGATIVE (Negative) Influenza Type B (PCR) NEGATIVE (Negative) RSV RNA Qual (PCR) NEGATIVE (Negative) SARS-CoV-2 RNA (RT-PCR) NEGATIVE (Negative) Independent Interpretation I performed an independent interpretation of an: Plain X-Ray ( chest:Low lung volumes with mild bibasilar atelectasis/pneumonitis.) Radiology Impression Discussion of test interpretation with radiology: I have reviewed the radiologist's reading. Discharge Plan Discharge Clinical Impression: Acute asthma exacerbation, Hypoxia Patient Disposition: Left Against Medical Advice Instructions: Asthma (ED) Prescriptions: New prednisone 20 mg tablet 20 mg PO BID Qty: 10 0RF albuterol sulfate [Ventolin HFA] 90 mcg/actuation HFA aerosol inhaler 2 puff inhalation Q6H PRN (Reason: shortness of breath or wheezing) Qty: 8.5 0RF azithromycin [Zithromax Z-Albert] 250 mg tablet See Rx Instructions .ROUTE .COMPLEX Qty: 6 0RF Rx Instructions: For 250 mg dose pack: take 500 mg today (day 1), then 250 mg for 4 days (days 2-5) No Action tramadol 50 mg tablet 50 mg PO Q12H PRN (Reason: pain) Qty: 30 0RF azithromycin 250 mg tablet See Rx Instructions .ROUTE .COMPLEX Qty: 6 0RF Rx Instructions: For 250 mg dose pack: take 500 mg today (day 1), then 250 mg for 4 days (days 2-5) prednisone 20 mg tablet 60 mg PO DAILY 5 Days Qty: 15 0RF prednisone 50 mg tablet 50 mg PO DAILY Qty: 5 0RF albuterol sulfate 90 mcg/actuation HFA aerosol inhaler 2 puff inhalation Q4-6H PRN (Reason: shortness of breath or wheezing) Qty: 8.5 1RF cephalexin 500 mg capsule 500 mg PO BID 7 Days Qty: 14 0RF albuterol sulfate 90 mcg/actuation aerosol powdr breath activated 2 inh inhalation Q4-6H PRN (Reason: shortness of breath or wheezing) Qty: 1 0RF albuterol sulfate 2.5 mg /3 mL (0.083 %) solution for nebulization 2.5 mg inhalation Q6H Qty: 75 0RF prednisone 20 mg tablet 40 mg PO DAILY 5 Days Qty: 10 0RF azithromycin 250 mg tablet See Rx Instructions .ROUTE .COMPLEX Qty: 6 0RF Rx Instructions: For 250 mg dose pack: take 500 mg today (day 1), then 250 mg for 4 days (days 2-5) naproxen [Naprosyn] 500 mg tablet 500 mg PO BID Qty: 20 0RF prednisone 20 mg tablet 40 mg PO DAILY Qty: 8 0RF ibuprofen 600 mg tablet 600 mg PO Q8H PRN (Reason: fever or pain) Qty: 30 0RF acetaminophen 500 mg capsule 1,000 mg PO .q8 PRN (Reason: fever or pain) Qty: 30 0RF azithromycin 250 mg tablet See Rx Instructions .ROUTE .COMPLEX Qty: 6 0RF Rx Instructions: For 250 mg dose pack: take 500 mg today (day 1), then 250 mg for 4 days (days 2-5) bupropion HCl 300 mg tablet extended release 24 hr 300 mg PO DAILY eszopiclone 3 mg tablet 3 mg PO BEDTIME PRN escitalopram oxalate 20 mg tablet 20 mg PO DAILY mirtazapine 30 mg tablet 30 mg PO BEDTIME clonazepam 0.5 mg tablet 0.5 mg PO BID PRN Atrovent HFA 17 mcg/actuation HFA aerosol inhaler inhalation amlodipine 2.5 mg tablet 2.5 mg PO DAILY ferrous sulfate [FeroSul] 325 mg (65 mg iron) tablet PO ascorbic acid (vitamin C) 250 mg tablet 250 mg PO DAILY omeprazole 40 mg capsule,delayed release(DR/EC) 40 mg PO DAILY atorvastatin 10 mg tablet 10 mg PO DAILY Referrals: Name,MD Virgil [Primary Care Provider, Internal Medicine] Stand Alone Forms: Against Medical Advice Print Language: Palauan
--- NOTE | 2024-11-03 20:46 | ECG_ITS ---
Test Reason : SOB Blood Pressure : */* mmHG Vent. Rate : 101 BPM Atrial Rate : 101 BPM P-R Int : 152 ms QRS Dur : 78 ms QT Int : 340 ms P-R-T Axes : 49 40 8 degrees QTcB Int : 440 ms Sinus tachycardia Otherwise normal ECG When compared with ECG of 24-May-2023 17:52, No significant change was found Referred By: Chelo Rojo Electronically Signed By: SAVANNAH SINGLETARY
[2024-11-03 21:22] VITALS: BP 102/67; PULSE 95; RESP 13; O2SAT 91
[2024-11-03] MEDS: Albuterol Sulfate 7.5 MG, Albuterol Sulfate (0.083%) 2.5 MG 10 MG INHALE (21:23)
[2024-11-03 21:24] VITALS: PULSE 95; RESP 18; O2SAT 90
[2024-11-03] MEDS: Albuterol Sulfate 7.5 MG, Albuterol/Iprat 2.5/0.5MG 3 ML 3 ML INHALE (21:28)
[2024-11-03 21:40] VITALS: PULSE 102; RESP 18; O2SAT 90
[2024-11-03 21:51] LABS: MANUAL DIFF FLAG NO
[2024-11-03 21:54] LABS: Venous Blood Gas Refer to POC result
[2024-11-03 21:55] LABS: Hematocrit 38.4 % (42.0-52.0); Hemoglobin 13.0 g/dl (14.0-18.0); Imm Gran Abs Auto 0.04 X10*3/uL (0.00-0.03); Imm Gran Pct Auto 0.4 % (0.0-0.4); Lymphocytes Absolute Auto 3.1 X10*3/uL (1.2-4.9); Mean Corpuscular HGB Conc 33.9 g/dl (31.0-36.0); Mean Corpuscular Hemoglobin 28.1 pg (27.0-33.0); Mean Corpuscular Volume 83.1 fL (80.0-98.0); NRBC Abs Auto 0.000 X10*3/uL (0.0-0.012); NRBC Pct Auto 0.0 /100WBC (0.0-0.2); Platelet Count 260 X10*3/uL (160-400); Red Blood Count 4.62 X10*6/uL (4.60-5.80); White Blood Count 10.4 X10*3/uL (4.8-10.8)
[2024-11-03 21:56] LABS: VBG HCO3 28 mmol/L (22-26); VBG O2 % Saturation 92.0 %
[2024-11-03 22:07] VITALS: BP 102/67; PULSE 100; RESP 16; TEMP 36.6; O2SAT 92
[2024-11-03 22:10] LABS: Anion Gap 10 (12-20)
[2024-11-03 22:11] LABS: Alanine Aminotransferase 19 U/L (0-40); Albumin Level 3.0 g/dL (3.5-5.0); Alkaline Phosphatase 120 U/L (39-117); Aspartate Amino Transferase 25 U/L (5-37); Blood Urea Nitrogen 24 mg/dL (9-16); Calcium 8.6 mg/dL (8.4-10.2); Carbon Dioxide 25 mmol/L (22-29); Chloride 110 mmol/L (96-108); Creatinine Clr Calc Pharmacy 89.6; Estimated Glomerular Filt Rate > 60; Potassium 4.0 mmol/L (3.3-5.1); Sodium 141 mmol/L (135-145); Total Protein 6.0 g/dL (6.5-8.0)
[2024-11-03 22:14] LABS: Troponin-I High Sensitivity 6.2 ng/L (<3.5-35.0)
[2024-11-03 22:30] LABS: Resp Syncy Virus RNA Qual PCR NEGATIVE (Negative); SARS COV2 PCR INHOUSE NEGATIVE (Negative)
--- NOTE | 2024-11-03 23:25 | MHC.EDTECH ---
ambulation trial completed at this time. PT HR stayed within normal limits, PT O2 stayed at 92%-93% for majority of trial briefly dipping to 90%.
--- NOTE | 2024-11-03 23:45 | PC.NURSE ---
Addendum entered by Pebbles Tobar RN 11/03/24 23:46: Pt completed walking O2 ambulation trial with tech. SPO2: 90-92%. Original Note: PT leaving AMA, paperwork reviewed with tug master. Pt aware of the risks and wanted to go home. Paperowrk, and prescriptions reviewed with patient.
[2024-11-03 23:48] VITALS: BP 102/67; PULSE 100; RESP 16; TEMP 36.6; O2SAT 92
== END 2024-11-03 23:48 | disposition left against medical advice (07) ==
PROVIDERS: Physician Assistant Medical; Emergency Provider Emergency Medicine; PCP Internal Medicine Geriatric Medicine
DX: J45.901 Unspecified asthma with (acute) exacerbation (principal); R09.02 Hypoxemia; Z79.899 Other long term (current) drug therapy; I10 Essential (primary) hypertension; K21.9 Gastro-esophageal reflux disease without esophagitis; F17.210 Nicotine dependence, cigarettes, uncomplicated
CPT/HCPCS: 71045; 80053; 82803; 84484; 85025; 87637; 93005; 94640; 96365; 96366; 96375; 99284; 99285; J2919; J3475

== ENCOUNTER → 2024-11-03 20:46 | Outpatient (BNV) | payer OTHER, SELFPAY | PROVIDERS: PCP Internal Medicine Geriatric Medicine; Visit Provider Radiology Neuroradiology | DX: J98.4 Other disorders of lung (principal) | CPT/HCPCS: 71045 ==

== ENCOUNTER → 2024-11-03 20:46 | Outpatient (BNV) | payer OTHER, SELFPAY | PROVIDERS: Emergency Provider Emergency Medicine; PCP Internal Medicine Geriatric Medicine; Visit Provider Internal Medicine | DX: R00.0 Tachycardia, unspecified (principal) | CPT/HCPCS: 93010 ==